=== PATIENT | female | born 1950 | race Caucasian/White ===

== ENCOUNTER → 2017-01-05 | Outpatient (CLI) | payer MEDICARE ==
[2017-01-05 07:48] LABS: CH 26.3; HCT 38.5 % (34.0-46.0); HDW 2.47; HGB 12.2 gm/dL (11.4-16.0); MCH 26.2 pg (25.0-35.0); MCHC 31.8 g/dL (31.0-37.0); MCV 82.5 fL (80.0-100.0); Mean Platelet Volume 6.6; RBC 4.67 m/uL (3.80-5.40); RDW 14.8 % (11.5-15.5); WBC 6.5 k/uL (3.8-10.6)
[2017-01-05 08:16] LABS: ALT 31 U/L (9-52); AST 21 U/L (14-36); Alkaline Phosphatase 72 U/L (38-126); Anion Gap 12 mmol/L; Blood Urea Nitrogen 17 mg/dL (7-17); Calcium 9.5 mg/dL (8.4-10.2); Carbon Dioxide 27 mmol/L (22-30); Chloride 100 mmol/L (98-107); Cholesterol 181 mg/dL (<200); Glucose 121 mg/dL (74-99); HDL Cholesterol 62 mg/dL (40-60); Non-African American GFR(MDRD) >60 (>60 ml/min/1.73 sqM); Potassium 4.3 mmol/L (3.5-5.1); Sodium 139 mmol/L (137-145); Total Bilirubin 0.5 mg/dL (0.2-1.3); Total Protein 7.4 g/dL (6.3-8.2); Triglycerides 210 mg/dL (<150)
--- NOTE | 2017-01-05 08:19 | XR ---
EXAMINATION TYPE: XR chest 2V DATE OF EXAM: 01/05/2017 7:49 AM COMPARISON: Prior chest x-ray 18 December 2015 HISTORY: Hypertensive heart disease, abnormal chest x-ray TECHNIQUE: Frontal and lateral views of the chest are obtained. FINDINGS: Exam is stable. Patient is rotated, this may accentuate the appearance of the heart. Calci fied granuloma again noted. No pneumothorax or pleural effusion. Pulmonary vascularity and debbie are u nchanged. No focal airspace disease. IMPRESSION: No acute cardiopulmonary process.
[2017-01-05 11:24] LABS: Hemoglobin A1C 6.3 % (4.2-6.1)
== END | disposition home or self-care (01) ==
LOC: LABWHC1 06:59
PROVIDERS: ATTEND Internal Medicine
DX: I11.9 Hypertensive heart disease without heart failure (principal); Z00.01 Encounter for general adult medical examination with abnormal findings; E11.9 Type 2 diabetes mellitus without complications; E78.2 Mixed hyperlipidemia; K21.0 Gastro-esophageal reflux disease with esophagitis
CPT/HCPCS: 36415; 71020; 80053; 80061; 82043; 83036; 84439; 84443; 85027

== ENCOUNTER → 2017-02-28 | Outpatient (CLI) | payer MEDICARE ==
[2017-02-28 14:08] LABS: Hemoglobin A1C 6.2 % (4.2-6.1)
== END | disposition home or self-care (01) ==
LOC: LABWHC1 06:49
PROVIDERS: ATTEND Internal Medicine
DX: E11.9 Type 2 diabetes mellitus without complications (principal)
CPT/HCPCS: 36415; 82947; 83036

== ENCOUNTER → 2017-03-17 | Outpatient (CLI) | payer MEDICARE ==
--- NOTE | 2017-03-23 10:55 | MM ---
Reason for exam: follow-up at short interval from prior study. Last mammogram was performed 7 months ago. History: Patient is postmenopausal. Family history of premenopausal breast cancer in sister at age 48. Physical Findings: Nurse did not find any significant physical abnormalities on exam. MG 3D Diag Mammo W/Cad RT CC and MLO view(s) were taken of the right breast. Prior study comparison: August 15, 2016, right breast MG work up mamm w CAD RT. August 03, 2016, bilateral MG screening mammo w CAD. The breast tissue is heterogeneously dense. This may lower the sensitivity of mammography. Nodular density persists for which a ultrasound is recommended. These results were verbally communicated with the patient and result sheet given to the patient on 03/17/17. ASSESSMENT: Incomplete: need additional imaging evaluation, BI-RAD 0 RECOMMENDATION: Ultrasound of the right breast.
--- NOTE | 2017-03-23 10:56 | USB ---
Reason for exam: additional evaluation requested from abnormal screening. History: Patient is postmenopausal. Family history of premenopausal breast cancer in sister at age 48. US Breast Limited RT Right breast ultrasound indicates a 0.8 x 0.5 x 0.3cm retroaerolar, oval, hypoechoic lesion at 6 o'clock These results were verbally communicated with the patient and result sheet given to the patient on 03/17/17. ASSESSMENT: Suspicious, BI-RAD 4 RECOMMENDATION: Ultrasound core biopsy of the right breast. Called Dr. Mathews with mammographic findings and has scheduled an appointment for the patient for 03/27/17 at 1:[address] Winchester. PRELIMINARY REPORT CALLED AND FAXED TO DR. WINCHESTER ON 03/23/17 AT 300/TMP.
== END | disposition home or self-care (01) ==
LOC: RADMAMWWP 12:54
PROVIDERS: ATTEND Internal Medicine
DX: R92.2 Inconclusive mammogram (principal); Z80.3 Family history of malignant neoplasm of breast
CPT/HCPCS: 76642; G0206; G0279

== ENCOUNTER → 2017-04-04 | Day surgery (SDC) | payer MEDICARE ==
[~2017-04-04] MED LIST: BACITRACIN OINT 1 EACH PACKET TOPICAL ONE; LIDOCAINE 1% INJ 10MG/ML (20 ML MDV) ONE
--- NOTE | 2017-04-04 08:47 | USB ---
EXAMINATION TYPE: US biopsy breast VAD RT DATE OF EXAM: 04/04/2017 CLINICAL HISTORY: R92.8 Abnormal Mammogram. TECHNIQUE: Ultrasound guided core biopsy of right breast. COMPARISON: 03/17/2017 FINDINGS: The procedure of ultrasound guided core biopsy was explained to the patient. Benefits, alternatives, and risks were discussed. An informed consent was then obtained. The patient was placed in supine positioning for imaging and for the procedure. The overlying skin was prepped and draped in usual sterile fashion. Lidocaine buffered with bicarbonate was used as anesthetic into the skin and subcutaneous tissue up to area of concern in the right breast. A katlin was made with surgical scalpel. Under ultrasound guidance, a 12-gauge vacuum assisted mammotome was used to obtain 6 core samples. Following this, a biopsy clip was left in lesion. The patient tolerated the procedure well without any immediate complication. The patient was kept in the radiology department for short stay after the procedure and then discharged home in stable condition. Postprocedure mammogram was obtained. The clip is in position. IMPRESSION: Successful, uncomplicated ultrasound guided core biopsy of area of concern in the right breast, full pathology results to follow. Pathology Results: High Risk BREAST, RIGHT, CORE BIOPSY: INTRADUCTAL PAPILLOMA. BACKGROUND FIBROCYSTIC CHANGES INCLUDING CYSTS, FIBROSIS, AND USUAL TYPE DUCTAL HYPERPLASIA. Recommendation Surgical consult of the right breast. TAMERA
--- NOTE | 2017-04-04 10:52 | MM ---
Reason for exam: additional evaluation requested from abnormal screening. Last mammogram was performed 1 month ago. History: Patient is postmenopausal. Family history of premenopausal breast cancer in sister at age 48. MG Diagnostic Mammo RT Wo CAD CC and ML view(s) were taken of the right breast. Prior study comparison: March 17, 2017, right breast MG 3d diag mammo w/cad RT. August 15, 2016, right breast MG work up mamm w CAD RT. ASSESSMENT: Post procedure mammogram for marker placement RECOMMENDATION: Ultrasound of the right breast in 6 months. PENDING PATHOLOGY RESULTS.
== END ==
LOC: RADUSWWP 06:50
PROVIDERS: ATTEND Surgery
DX: D24.1 Benign neoplasm of right breast (principal); Z80.3 Family history of malignant neoplasm of breast; N60.31 Fibrosclerosis of right breast; N60.91 Unspecified benign mammary dysplasia of right breast; R92.8 Other abnormal and inconclusive findings on diagnostic imaging of breast
CPT/HCPCS: 88305; 19083; G0206; A4648; J2001

== ENCOUNTER → 2017-09-18 | Outpatient (CLI) | payer MEDICARE ==
--- NOTE | 2017-09-18 13:09 | USB ---
Reason for exam: additional evaluation requested from prior study. History: Patient is postmenopausal and has history of high-risk lesion on a previous biopsy at age 66. Family history of premenopausal breast cancer in sister at age 48. Excisional biopsy of the right breast, May 2017. High risk US biopsy breast VAD RT of the right breast, April 04, 2017. Physical Findings: Nurse Summary: 0.5cm nodule right breast 12 o'clock (nurse mj). US Breast RT Right breast ultrasound includes all four quadrants, the retroareolar region and axilla. Finding demonstrates a 8 x 3 x 4mm small curvilinear area at surgical site at 6 o'clock at scar suggesting some residual small fluid. No abnormality seen at the 12 o'clock nurse palpated site. These results were verbally communicated with the patient and result sheet given to the patient on 09/18/17. ASSESSMENT: Incomplete: need additional imaging evaluation, BI-RAD 0 RECOMMENDATION: Special view mammogram of the right breast.
--- NOTE | 2017-09-18 13:11 | MM ---
Reason for exam: additional evaluation requested from abnormal screening. Last mammogram was performed 5 months ago. History: Patient is postmenopausal and has history of high-risk lesion on a previous biopsy at age 66. Family history of premenopausal breast cancer in sister at age 48. Excisional biopsy of the right breast, May 2017. High risk US biopsy breast VAD RT of the right breast, April 04, 2017. MG 3D Diag Mammo W/Cad POLO Bilateral CC and MLO view(s) were taken. Prior study comparison: April 04, 2017, right breast MG diagnostic mammo RT wo CAD. March 17, 2017, right breast MG 3d diag mammo w/cad RT. March 17, 2017, right breast US breast limited RT. December 09, 2013, bilateral digital screening mammo w/CAD. There are scattered fibroglandular densities. There is new distortion at the 5-6 o'clock right breast seen on the 3D CC images. Likely correspond to excisional scar from surgery in May 2017. A 6 month follow up to assess for stability of this finding. These results were verbally communicated with the patient and result sheet given to the patient on 09/18/17. ASSESSMENT: Probably benign, BI-RAD 3 RECOMMENDATION: Follow-up diagnostic mammogram of the right breast in 6 months.
== END | disposition home or self-care (01) ==
LOC: RADUSWWP 10:12
PROVIDERS: ATTEND Internal Medicine
DX: R92.8 Other abnormal and inconclusive findings on diagnostic imaging of breast (principal)
CPT/HCPCS: 76641; G0204; G0279

== ENCOUNTER → 2018-01-30 | Outpatient (CLI) | payer MEDICARE ==
[2018-01-30 07:53] LABS: HCT 36.2 % (34.0-46.0); MCH 26.7 pg (25.0-35.0); MCV 81.1 fL (80.0-100.0); Mean Platelet Volume 6.2; Platelet Count 400 k/uL (150-450); RBC 4.47 m/uL (3.80-5.40); RDW 14.6 % (11.5-15.5); WBC 5.6 k/uL (3.8-10.6)
[2018-01-30 08:21] LABS: ALT 25 U/L (9-52); AST 21 U/L (14-36); Albumin 4.1 g/dL (3.5-5.0); Alkaline Phosphatase 70 U/L (38-126); Anion Gap 13 mmol/L; Blood Urea Nitrogen 21 mg/dL (7-17); Calcium 9.2 mg/dL (8.4-10.2); Carbon Dioxide 27 mmol/L (22-30); Chloride 100 mmol/L (98-107); Cholesterol 172 mg/dL (<200); Glucose 114 mg/dL (74-99); HDL Cholesterol 57 mg/dL (40-60); LDL Cholesterol,Calculated 76 mg/dL (0-99); Potassium 4.1 mmol/L (3.5-5.1); Sodium 140 mmol/L (137-145); Total Bilirubin 0.4 mg/dL (0.2-1.3); Total Protein 6.6 g/dL (6.3-8.2); Triglycerides 193 mg/dL (<150)
[2018-01-30 08:34] LABS: T4, Free (Free Thyroxine) 1.07 ng/dL (0.78-2.19)
[2018-01-30 18:44] LABS: Hemoglobin A1C 6.1 % (4.0-6.0)
== END | disposition home or self-care (01) ==
LOC: LABWHC1 07:12
PROVIDERS: ATTEND Internal Medicine
DX: Z00.00 Encounter for general adult medical examination without abnormal findings (principal); E11.9 Type 2 diabetes mellitus without complications; E78.2 Mixed hyperlipidemia; I11.9 Hypertensive heart disease without heart failure; K21.0 Gastro-esophageal reflux disease with esophagitis
CPT/HCPCS: 36415; 80053; 80061; 82043; 82272; 82570; 83036; 84439; 84443; 85027

== ENCOUNTER → 2018-04-20 | Outpatient (CLI) | payer MEDICARE ==
--- NOTE | 2018-04-23 08:29 | MM ---
Reason for exam: follow-up at short interval from prior study. Last mammogram was performed 7 months ago. History: Patient is postmenopausal and has history of high-risk lesion on a previous biopsy at age 66. Family history of premenopausal breast cancer in sister at age 48. Excisional biopsy of the right breast, May 2017. High risk US biopsy breast VAD RT of the right breast, April 04, 2017. Physical Findings: Nurse did not find any significant physical abnormalities on exam. MG 3D Diag Mammo W/Cad RT CC and MLO view(s) were taken of the right breast. Prior study comparison: September 18, 2017, bilateral MG 3d diag mammo w/cad POLO. April 04, 2017, right breast MG diagnostic mammo RT wo CAD. The breast tissue is heterogeneously dense. This may lower the sensitivity of mammography. Benign calcifications in the right breast. Right post biopsy change, stable. These results were verbally communicated with the patient and result sheet given to the patient on 04/20/18. ASSESSMENT: Benign, BI-RAD 2 RECOMMENDATION: Follow-up diagnostic mammogram of both breasts in 6 months. Back on schedule for September 2018.
== END | disposition home or self-care (01) ==
LOC: RADMAMWWP 14:13
PROVIDERS: ATTEND Internal Medicine
DX: R92.8 Other abnormal and inconclusive findings on diagnostic imaging of breast (principal)
CPT/HCPCS: 77065; G0279; 77061

== ENCOUNTER → 2018-11-20 | Outpatient (CLI) | payer MEDICARE ==
--- NOTE | 2018-11-20 13:18 | BD ---
EXAMINATION TYPE: Axial Bone Density DATE OF EXAM: 11/20/2018 COMPARISON: 2012 DEXA bone scan. CLINICAL HISTORY: screening. Height: 5'2 Weight: 190 FRAX RISK QUESTIONS: Secondary Osteoporosis: RISK FACTORS HISTORY OF: Postmenopausal woman: y Poor Health: MEDICATIONS: Additional Medications: blood pressure, cholesterol, metformin Additional History: EXAM MEASUREMENTS: Bone mineral densitometry was performed using the [employer] System. Bone mineral density as measured about the Lumbar spine is: ----- L1-L4(G/cm2): 1.511 T Score Values are as follows: ----- L2: 2.6 ----- L3: 2.4 ----- L4: 2.8 ----- L1-L4:2.8 Bone mineral density has: Increased 0.1% since study of: 11/27/2012 Bone mineral density about the R hip (g/cm2): 0.928 Bone mineral density about the L hip (g/cm2): 0.895 T Score values are as follows: -----R Neck: -0.8 -----L Neck: -1.0 -----R Total: -0.3 -----L Total: -0.2 Bone mineral density has: Increased 0.9% since study of: 11/27/2012 IMPRESSION: Normal (Values between +1 and -1 indicate normal bone mass). Consider repeating this study in 5 year s or sooner if there is some new clinical indication. NOTE: T-SCORE=SD OF THE YOUNG ADULT MEAN.
--- NOTE | 2018-11-24 15:41 | MM ---
Reason for exam: history of benign breast biopsy. Last mammogram was performed 7 months ago. History: Patient is postmenopausal and has history of high-risk lesion on a previous biopsy at age 66. Family history of premenopausal breast cancer in sister at age 48. Excisional biopsy of the right breast, May 2017. High risk US biopsy breast VAD RT of the right breast, April 04, 2017. Took hormonal contraceptives for 3 years. Physical Findings: Nurse did not find any significant physical abnormalities on exam. MG 3D Diag Mammo W/Cad POLO Bilateral CC and MLO view(s) were taken. Prior study comparison: April 20, 2018, right breast MG 3d diag mammo w/cad RT. September 18, 2017, bilateral MG 3d diag mammo w/cad POLO. The breast tissue is heterogeneously dense. This may lower the sensitivity of mammography. There are benign-appearing round dystrophic bilateral breast calcifications. There is chronic inverted left nipple. No discrete abnormality. These results were verbally communicated with the patient and result sheet given to the patient on 11/20/18. ASSESSMENT: Benign, BI-RAD 2 RECOMMENDATION: Routine screening mammogram of both breasts in 1 year.
== END ==
LOC: RADMAMWWP 08:11
PROVIDERS: ATTEND Obstetrics & Gynecology
DX: R92.8 Other abnormal and inconclusive findings on diagnostic imaging of breast (principal); Z13.820 Encounter for screening for osteoporosis
CPT/HCPCS: 77080; 77066; G0279; 77062

== ENCOUNTER → 2019-04-05 | Outpatient (CLI) | payer MEDICARE ==
[2019-04-05 10:04] LABS: HGB 13.1 gm/dL (11.4-16.0); MCH 29.3 pg (25.0-35.0); MCHC 32.7 g/dL (31.0-37.0); MCV 89.7 fL (80.0-100.0); Mean Platelet Volume 6.1; Platelet Count 346 k/uL (150-450); RBC 4.46 m/uL (3.80-5.40); RDW 13.6 % (11.5-15.5); WBC 5.4 k/uL (3.8-10.6)
--- NOTE | 2019-04-05 10:31 | XR ---
EXAMINATION TYPE: XR chest 2V DATE OF EXAM: 04/05/2019 COMPARISON: January 05, 2017 HISTORY: Shortness of breath TECHNIQUE: Frontal and lateral views of the chest are obtained. FINDINGS: Scattered senescent parenchymal changes noted. Hyperinflation compatible with COPD. No evidence for infiltrate. No evidence for atelectasis. Heart size is stable. Mediastinal structures are stable and grossly unremarkable. No evidence for hilar prominence. Degenerative changes dorsal spine. IMPRESSION: 1. No evidence for acute pulmonary disease.
[2019-04-05 17:20] LABS: Albumin 4.5 g/dL (3.80-4.90); Albumin/Globulin Ratio 2.37 (1.60-3.17); Anion Gap 9.7 mmol/L (4.00-12.00); Calcium 9.5 mg/dL (8.7-10.3); Carbon Dioxide 28.3 mmol/L (21.6-31.8); Globulin 1.9 g/dL (1.6-3.3); LDL Cholesterol,Calculated 85.8 mg/dL (0.0-131.0); Potassium 4.3 mmol/L (3.5-5.5); Total Bilirubin 0.3 mg/dL (0.2-1.2); Total Protein 6.4 g/dL (6.2-8.2); VLDL Calculation 33.2 mg/dL (5.00-40.00)
[2019-04-05 17:28] LABS: T4, Free (Free Thyroxine) 1.2 ng/dL (0.80-1.80)
[2019-04-05 19:12] LABS: Hemoglobin A1C 6.2 % (4.0-6.0)
== END ==
LOC: LABWHC1 08:56
PROVIDERS: ATTEND Internal Medicine
DX: Z00.00 Encounter for general adult medical examination without abnormal findings (principal); I11.9 Hypertensive heart disease without heart failure; E11.9 Type 2 diabetes mellitus without complications; K21.0 Gastro-esophageal reflux disease with esophagitis; E78.2 Mixed hyperlipidemia
CPT/HCPCS: 36415; 71046; 80053; 80061; 82272; 83036; 84439; 84443; 85027

== ENCOUNTER → 2019-09-17 | Outpatient (CLI) | payer MEDICARE ==
[2019-09-17 17:27] LABS: African American GFR (CKD) 87.8 (60.0-200.0); Anion Gap 10.2 mmol/L (4.00-12.00); BUN/Creat Ratio 23.75 Ratio (12.00-20.00); Calcium 9.4 mg/dL (8.7-10.3); Carbon Dioxide 28.8 mmol/L (21.6-31.8); Chol/HDL Ratio 3.02; Potassium 4.3 mmol/L (3.5-5.5)
[2019-09-17 19:01] LABS: Hemoglobin A1C 5.9 % (4.0-6.0)
== END | disposition home or self-care (01) ==
LOC: LABWHC1 08:52
PROVIDERS: ATTEND Internal Medicine Clinical Cardiac Electrophysiology
DX: E11.65 Type 2 diabetes mellitus with hyperglycemia (principal); E78.5 Hyperlipidemia, unspecified; I10 Essential (primary) hypertension
CPT/HCPCS: 36415; 80048; 80061; 83036

== ENCOUNTER 2019-10-17 09:38 | Day surgery (SDC) | payer MEDICARE ==
[2019-10-15 12:24] VITALS: BMI 35.9
[2019-10-17 10:17] VITALS: RESP 16; TEMP 97.9
[2019-10-17] MEDS ORDERED: IV FLUID CONTINUATION 250 ML IV ONE (11:29)
[2019-10-17] MEDS ORDERED: fentaNYL (PF) 50 MCG/ML 2 ML AMP IV ONE (11:44)
[2019-10-17] MEDS ORDERED: BENZOCAINE SPRAY 1 CAN MUCOUS MEM ONE (11:44)
[2019-10-17] MEDS ORDERED: MIDAZOLAM 2 MG/2 ML VIAL IVP ONE (11:45)
[2019-10-17 11:59] VITALS: PULSE 72
[2019-10-17] MEDS ORDERED: SODIUM CHLORIDE 0.9% 1,000 ML IV SCH (12:15)
--- NOTE | 2019-10-17 12:29 | ECHOT ---
TRANSESOPHAGEAL ECHOCARDIOGRAM Mrs. Rabago was advised transesophageal echocardiogram to assess aortic stenosis. Patient was given intravenous sedation with Versed and fentanyl and transesophageal echocardiogram was performed without any complications. Left ventricular chamber is normal in size. There is a moderate degree of left ventricular hypertrophy with normal left ventricular systolic function. Mitral valve morphology is normal. There is a moderate degree of mitral regurgitation noted. Left atrium is mildly enlarged. There is no evidence of thrombus in the left atrial appendage. Aortic valve is thickened and calcified with diminished aortic leaflet opening. Aortic valve area by planimetry is calculated in the range of 0.9 to 0.8 square centimeter. There is a mild aortic regurgitation and moderate degree of tricuspid regurgitation is noted. Interatrial septum is intact. There is no evidence of PFO. There is evidence of diffuse atherosclerotic plaque noted in the descending thoracic aorta. FINAL IMPRESSION: 1. This patient's aortic valve is thickened and calcified with a diminished opening. Aortic valve area is calculated in the range of 0.8 to 0.9 square centimeter suggestive of severe aortic stenosis. There is a mild aortic regurgitation. 2. There is a moderate degree of mitral regurgitation. 3. Moderate degree of tricuspid regurgitation is noted. 4. Interatrial septum is intact. 5. There is a diffuse atherosclerotic plaque noted in descending thoracic aorta. MMODL / IJN: [id number] /
[2019-10-17 13:43] VITALS: BP 128/65
== END 2019-10-17 13:10 | disposition home or self-care (01) ==
LOC: CATHCVL 09:38
PROVIDERS: ATTEND Internal Medicine Cardiovascular Disease
DX: I08.3 Combined rheumatic disorders of mitral, aortic and tricuspid valves (principal); I70.0 Atherosclerosis of aorta; I10 Essential (primary) hypertension; E78.5 Hyperlipidemia, unspecified; E11.9 Type 2 diabetes mellitus without complications; Z79.899 Other long term (current) drug therapy; Z79.84 Long term (current) use of oral hypoglycemic drugs
CPT/HCPCS: 93312; 93320; 93325; J2250; J3010

== ENCOUNTER → 2019-11-01 | Outpatient (CLI) | payer MEDICARE ==
[2019-11-01 15:03] LABS: HCT 39.5 % (34.0-46.0); HGB 12.8 gm/dL (11.4-16.0); MCH 28.9 pg (25.0-35.0); MCHC 32.5 g/dL (31.0-37.0); Mean Platelet Volume 6.4; Platelet Count 376 k/uL (150-450); RBC 4.44 m/uL (3.80-5.40); WBC 7.4 k/uL (3.8-10.6)
[2019-11-01 15:10] LABS: Potassium 4.2 mmol/L (3.5-5.1)
== END | disposition home or self-care (01) ==
LOC: LABPAT 14:19
PROVIDERS: ATTEND Internal Medicine Interventional Cardiology
DX: Z01.812 Encounter for preprocedural laboratory examination (principal); I35.0 Nonrheumatic aortic (valve) stenosis
CPT/HCPCS: 36415; 80051; 82565; 84520; 85027

== ENCOUNTER → 2019-12-09 | Outpatient (CLI) | payer MEDICARE ==
--- NOTE | 2019-12-10 11:02 | MM ---
Reason for exam: screening (asymptomatic). Last mammogram was performed 1 year and 1 month ago. History: Patient is postmenopausal and has history of high-risk lesion on a previous biopsy at age 66. Family history of premenopausal breast cancer in sister at age 48. Excisional biopsy of the right breast, May 2017. High risk US biopsy breast VAD RT of the right breast, April 04, 2017. Took hormonal contraceptives for 3 years. Physical Findings: A clinical breast exam by your physician is recommended on an annual basis and results should be correlated with mammographic findings. MG 3D Screening Mammo W/Cad Bilateral CC and MLO view(s) were taken. Prior study comparison: November 20, 2018, bilateral MG 3d diag mammo w/cad POLO. April 20, 2018, right breast MG 3d diag mammo w/cad RT. There are benign appearing round calcifications bilaterally. There is no discrete abnormality. ASSESSMENT: Benign, BI-RAD 2 RECOMMENDATION: Routine screening mammogram of both breasts in 1 year.
== END | disposition home or self-care (01) ==
LOC: RADMAMWWP 09:49
PROVIDERS: ATTEND Obstetrics & Gynecology
DX: Z12.31 Encounter for screening mammogram for malignant neoplasm of breast (principal)
CPT/HCPCS: 77063; 77067

== ENCOUNTER → 2019-12-12 | Outpatient (CLI) | payer MEDICARE ==
[2019-12-12 09:40] LABS: HCT 40.7 % (34.0-46.0); HGB 13.4 gm/dL (11.4-16.0); MCH 29.2 pg (25.0-35.0); MCHC 32.9 g/dL (31.0-37.0); MCV 88.9 fL (80.0-100.0); Mean Platelet Volume 6.5; Platelet Count 357 k/uL (150-450); RBC 4.57 m/uL (3.80-5.40); RDW 13.1 % (11.5-15.5); WBC 6.1 k/uL (3.8-10.6)
[2019-12-12 09:46] LABS: Appearance,Urine Clear (Clear); Bilirubin,Urine Negative (Negative); Blood,Urine Negative (Negative); Color,Urine Light Yellow; Glucose,Urine (UA) Negative (Negative); Ketones,Urine Negative (Negative); Leukocyte Esterase,Urine Moderate (Negative); Mucus,Urine Rare /hpf; Nitrite,Urine Negative (Negative); PH, Urine 6.5 (5.0-8.0); Protein,Urine Negative (Negative); RBC,Urine 1 /hpf (0-5); Specific Gravity,Urine 1.009 (1.001-1.035); Squamous Epithelial Cell,Urine 2 /hpf (0-4); Urobilinogen,Urine <2.0 mg/dL (<2.0); WBC,Urine 2 /hpf (0-5)
[2019-12-12 09:52] LABS: ALT 24 U/L (4-34); AST 26 U/L (14-36); African American GFR (CKD) >90 (>60 ml/min/1.73 sqM); Albumin 4.3 g/dL (3.5-5.0); Alkaline Phosphatase 78 U/L (38-126); Anion Gap 9 mmol/L; Blood Urea Nitrogen 19 mg/dL (7-17); Calcium 9.5 mg/dL (8.4-10.2); Carbon Dioxide 29 mmol/L (22-30); Chloride 100 mmol/L (98-107); Cholesterol 168 mg/dL (<200); Glucose 122 mg/dL (74-99); HDL Cholesterol 51 mg/dL (40-60); LDL Cholesterol,Calculated 71 mg/dL (0-99); Magnesium 1.9 mg/dL (1.6-2.3); Non-African American GFR(CKD) 87 (>60 ml/min/1.73 sqM); Sodium 138 mmol/L (137-145); Total Bilirubin 0.6 mg/dL (0.2-1.3); Triglycerides 231 mg/dL (<150)
--- NOTE | 2019-12-12 10:35 | P.PN ---
Progress Note - Text Progress Note Date: 12/12/19 5 meter walk test completed: #1 3.26 sec #2 3.53 sec #3 3.56 sec Patient tolerated well, no complaints of chest pain or shortness of breath.
--- NOTE | 2019-12-12 11:36 | XR ---
EXAMINATION TYPE: XR chest 2V DATE OF EXAM: 12/12/2019 COMPARISON: 04/05/2019, 11/08/2014 TECHNIQUE: PA and lateral views submitted. HISTORY: Pain FINDINGS: The lungs are clear and there is no pneumothorax, pleural effusion, or focal pneumonia. Heart size is mildly prominent. No failure. 6 mm nodule left lung apex stable. Hypertrophic and degenerative kimberly nge of the spine. IMPRESSION: 1. No acute process. Stable left apical pulmonary nodule unchanged from 2015 for benign.
[2019-12-12 16:31] LABS: Hepatitis A Antibody IgM Non-Reactive (Non-Reactive); Hepatitis B Core IgM Non-Reactive (Non-Reactive); Hepatitis B Surface Antigen Non-Reactive (Non-Reactive); Hepatitis C IgG Antibody Non-Reactive (Non-Reactive)
[2019-12-12 18:10] LABS: Hemoglobin A1C 6.2 % (4.0-6.0)
--- NOTE | 2019-12-18 10:35 | P.VSCSTY ---
Greater Saphenous Vein Mapping This is bilateral lower extremity greater saphenous vein mapping. Date of service: 12/12/2019 Vein quality and ultrasound appearance: No sign of endoluminal thrombus or wall changes. Vein size groin right : 7.3 x 5.3 groin left: 7.3 x 6.0 High thigh right: 6.4 x 4.6 high thigh left: 3.4 x 3.4 Mid thigh right: 3.9 x 2.8 mid thigh left: 4.1 x 2.6 Above-knee right: 2.9 x 3.0 above-knee left: 4.0 x 3.0 Below knee right: 2.7 x 2.1 below-knee left: 2.6 x 2.1 Mid calf right: 3.1 x 2.3 mid calf left: 2.6 x 2.1 Ankle right: 2.7 x 1.9 ankle left: 3.3 x 2.2 Impression: Usable bilateral greater saphenous vein.
== END | disposition home or self-care (01) ==
LOC: LABWHC1 08:48
PROVIDERS: ATTEND Thoracic Surgery (Cardiothoracic Vascular Surgery)
DX: Z01.818 Encounter for other preprocedural examination (principal); I10 Essential (primary) hypertension; I35.0 Nonrheumatic aortic (valve) stenosis; E11.9 Type 2 diabetes mellitus without complications; E78.5 Hyperlipidemia, unspecified; R91.1 Solitary pulmonary nodule
CPT/HCPCS: 71046; 80053; 80061; 80074; 81001; 83036; 83735; 84443; 85027; 85610; 85730; 87070; 87086; 93005; 93970

== ENCOUNTER 2019-12-20 08:00 | Inpatient (IN) | payer MEDICARE ==
[2019-12-25] MEDS ORDERED: HEPARIN SODIUM,PORCINE 5,000 UNIT in SODIUM CHLORIDE 0.9% 500 ML 500 ML IV ONE (05:00)
[2019-12-25] MEDS ORDERED: ALBUMIN HUMAN 25% 50 ML IV ONE (05:00)
[2019-12-25] MEDS ORDERED: ATORVASTATIN 10 MG TAB PO ONE (05:00)
[2019-12-25] MEDS ORDERED: PROTAMINE SULFATE 250 MG in EMPTY BAG 1 BAG IV ONE (05:00)
[2019-12-25] MEDS ORDERED: CHLORHEXIDINE GLUCONATE 15 ML CUP MUCOUS MEM ONE (05:00)
[2019-12-25] MEDS ORDERED: MANNITOL 25% 12.5 GM/50 ML VIAL IV ONE (05:00)
[2019-12-25] MEDS ORDERED: ceFAZolin 2,000 MG in SODIUM CHLORIDE 0.9% 30 ML IVPB ONE ×4 (05:00)
[2019-12-25] MEDS ORDERED: HEPARIN SODIUM 1,000 UN/ML (10ML VL) IV ONE (05:00)
[2019-12-25] MEDS ORDERED: PROPOFOL 1,000 MG/100 ML VIAL IV ONE (05:00)
[2019-12-25] MEDS ORDERED: ASPIRIN 325 MG TAB PO ONE (05:00)
[2019-12-25] MEDS ORDERED: MAGNESIUM SULFATE MG 500 MG/ML IV ONE (05:00)
[2019-12-25] MEDS ORDERED: SODIUM BICARB 8.4% 50 ML SYR (1 MEQ/ML) IV ONE (05:00)
[2019-12-25] MEDS ORDERED: PROTAMINE SULFATE 10 MG/ML 25 ML VIAL IV ONE (05:00)
[2019-12-25] MEDS ORDERED: NOREPINEPHRINE 4 MG in SODIUM CHLORIDE 0.9% 250 ML IV ONE (05:00)
[2019-12-25] MEDS ORDERED: LACTATED RINGERS 1,000 ML IV ONE ×2 (05:00→08:17)
[2019-12-25] MEDS ORDERED: DEXTROSE 5% IN WATER 1,000 ML with POTASSIUM CHLORIDE 110 MEQ, MAGNESIUM SULFATE 16 MEQ... IV ONE ×5 (05:00)
[2019-12-25] MEDS ORDERED: PHENYLEPHRINE 10 MG/ML VIAL IV ONE (05:00)
[2019-12-25] MEDS ORDERED: NITROGLYCERIN-D5W PMX 25 MG/250 ML BTL IV ONE (05:00)
[2019-12-25] MEDS ORDERED: PHENYLEPHRINE 40 MG in SODIUM CHLORIDE 0.9% 250 ML IV ONE (05:00)
[2019-12-25] MEDS ORDERED: METOPROLOL TARTRATE 12.5 MG TAB PO ONE (05:00)
[2019-12-25] MEDS ORDERED: DEXTROSE 5% IN WATER 1,000 ML with POTASSIUM CHLORIDE 25 MEQ, SODIUM CHLORIDE 2.5MEQ/ML... IRRIGATION ONE ×6 (05:00)
[2019-12-25] MEDS ORDERED: CLEVIDIPINE BUTYRATE 25 MG in EMPTY BAG 1 BAG IV ONE (05:00)
[2019-12-25] MEDS ORDERED: ALBUMIN HUMAN 5% 500 ML IVPB ONE (05:00)
[2019-12-25] MEDS ORDERED: INSULIN REGULAR 100 UNIT in SODIUM CHLORIDE 0.9% 100 ML IV ONE (05:00)
[2019-12-25] MEDS ORDERED: TRANEXAMIC ACID 2,000 MG in SODIUM CHLORIDE 0.9% 80 ML IV ONE (05:00)
[2019-12-25] MEDS ORDERED: CALCIUM CHLORIDE 100 MG/ML 10 ML SYRINGE IV ONE (05:00)
[2019-12-25] MEDS ORDERED: SODIUM CHLORIDE 0.9% 1,000 ML IV ONE (05:00)
[2019-12-25] MEDS ORDERED: LIDOCAINE 1% (10MG/ML) FOR IV START INTRADERMA PRN (06:26)
[2019-12-25] MEDS ORDERED: LACTATED RINGERS 1,000 ML IV SCH (06:26)
[2019-12-25] MEDS ORDERED: MIDAZOLAM 2 MG/2 ML VIAL ONE (09:42)
[2019-12-25] MEDS ORDERED: MAGNESIUM SULFATE 4 MEQ/ML 10ML VIAL ONE (09:42)
[2019-12-25] MEDS ORDERED: TRANEXAMIC ACID 1,000 MG/10 ML VIAL ONE (09:42)
[2019-12-25] MEDS ORDERED: PROPOFOL 10 MG/ML 20 ML VIAL IV ONE (09:42)
[2019-12-25] MEDS ORDERED: SODIUM CHLORIDE 0.9% 250 ML BAG ONE (09:42)
[2019-12-25] MEDS ORDERED: fentaNYL (PF) 50 MCG/ML 2 ML AMP ONE (09:42)
[2019-12-25] MEDS ORDERED: VECURONIUM 10 MG VIAL IV ONE (09:42)
[2019-12-25] MEDS ORDERED: fentaNYL (PF) 50 MCG/ML 50 ML VIAL ONE (09:42)
[2019-12-25] MEDS ORDERED: ALBUMIN HUMAN 5% (25gm) 500 ML VIAL IVPB ONE (09:42)
[2019-12-25] MEDS ORDERED: ELECTROLYTE-R (PH 7.4) 1,000 ML IV.SOLN IV ONE (09:42)
[2019-12-25] MEDS ORDERED: POTASSIUM CHLORIDE 2 MEQ/ML 20 ML VIAL ONE (09:42)
[2019-12-25] MEDS ORDERED: LACTATED RINGERS 1,000 ML BAG IV ONE (09:42)
[2019-12-25] MEDS ORDERED: LIDOCAINE 1% INJ 10MG/ML (20 ML MDV) ONE (09:42)
[2019-12-25] MEDS ORDERED: HEPARIN SODIUM,PORCINE 10,000 UNIT/ML 1 ML VIAL ONE (09:42)
[2019-12-25 10:44] LABS: ABG Base Excess 3.6 mmol/L; ABG Glucose Whole Blood 116 mg/dL (75-99); ABG HCO3 28 mmol/L (21-25); ABG Hematocrit 36 % (34.0-46.0); ABG Ionized Calcium 4.7 mg/dL (4.5-5.3); ABG Lactic Acid Whole Blood 1.2 mmol/L (0.5-1.6); ABG Oxygen Saturation 99.8 % (94-97); ABG PCO2 38 mmHg (35-45); ABG PH 7.47 (7.35-7.45); ABG PO2 350 mmHg (83-108); ABG Potassium Whole Blood 3.8 mmol/L (3.4-4.5); ABG Sodium Whole Blood 139 mmol/L (135-146); ABG TCO2 29 mmol/L (19-24)
[2019-12-25 11:32] LABS: ABG Base Excess 2.2 mmol/L; ABG Glucose Whole Blood 121 mg/dL (75-99); ABG HCO3 26 mmol/L (21-25); ABG Hematocrit 31 % (34.0-46.0); ABG Ionized Calcium 4.6 mg/dL (4.5-5.3); ABG Oxygen Saturation 99.7 % (94-97); ABG PCO2 38 mmHg (35-45); ABG PH 7.45 (7.35-7.45); ABG PO2 209 mmHg (83-108); ABG Potassium Whole Blood 3.8 mmol/L (3.4-4.5); ABG Sodium Whole Blood 137 mmol/L (135-146); ABG TCO2 28 mmol/L (19-24)
[2019-12-25 11:59] LABS: ABG Base Excess 0.5 mmol/L; ABG Glucose Whole Blood 198 mg/dL (75-99); ABG HCO3 26 mmol/L (21-25); ABG Ionized Calcium 4.2 mg/dL (4.5-5.3); ABG Lactic Acid Whole Blood 1.9 mmol/L (0.5-1.6); ABG Oxygen Saturation 99.8 % (94-97); ABG PCO2 46 mmHg (35-45); ABG PH 7.36 (7.35-7.45); ABG PO2 352 mmHg (83-108); ABG Potassium Whole Blood 4.8 mmol/L (3.4-4.5); ABG Sodium Whole Blood 132 mmol/L (135-146); ABG TCO2 28 mmol/L (19-24)
[2019-12-25 12:31] LABS: ABG Glucose Whole Blood 205 mg/dL (75-99); ABG HCO3 25 mmol/L (21-25); ABG Ionized Calcium 4.2 mg/dL (4.5-5.3); ABG PCO2 41 mmHg (35-45); ABG PO2 318 mmHg (83-108); ABG Potassium Whole Blood 4.4 mmol/L (3.4-4.5); ABG Sodium Whole Blood 134 mmol/L (135-146); ABG TCO2 26 mmol/L (19-24)
[2019-12-25 13:09] LABS: ABG Lactic Acid Whole Blood 2.5 mmol/L (0.5-1.6)
[2019-12-25 13:11] LABS: ABG Hematocrit 24 % (34.0-46.0)
[2019-12-25 13:12] LABS: ABG Hematocrit 24 % (34.0-46.0); ABG Lactic Acid Whole Blood 2.2 mmol/L (0.5-1.6)
--- NOTE | 2019-12-25 13:49 | P.ANPRN ---
Procedure Note - Anesthesia - KESHAV Intraop Pre Bypass KESHAV Intraop - Anesthesia Indication: Aortic Valve Stenosis Date of Procedure: 12/25/19 Pre-operative Diagnosis: Aortic Valve Stenosis Post-operative Diagnosis: Bioprosthetic Aortic Valve Surgeon: Gómez Benjamin Left Ventricle: LVH, Normal Ejection Fraction, EF=60% Ejection Fraction: Normal Regional Wall Motion Abnormalities: None Left Ventricle Hypertrophy: Yes R. Ventricle Function: Normal Anatomy: Trileaflet Aortic Stenosis: Severe (Mean gradient=21.85mmHg, Peak= 32.19mmHg, FARZANEH=0.7cm2) Aortic Regurgitation: Mild Mitral Stenosis: None Mitral Regurgitation: Mild Tricuspid Stenosis: None Tricuspid Regurgitation: None Pulmonic Stenosis: None Pulmonic Regurgitation: None R. Atrial Dilation: No R. Atrial PFO: No L. Atrial Dilation: No Aortic Dissection: No Aortic Calcification: Moderate Plural Effusion: None - KESHAV Intraop Post Bypass KESHAV Intraop Post Bypass Procedure Performed: Aortic Valve Replacement, Bioprosthetic valve Ejection Fraction: Normal Regional Wall Motion Abnormalities: None R. Ventricle Function: Normal Aortic Valve: (MeanPG=15mmHg, MaxPG=26mmHg, FARZANEH=1.7cm2, no paravalvular leak, No aortic regurgitation, well seated, non-rocking valve.) Mitral Valve: Unchanged Tricuspid: Unchanged Pulmonic: Unchanged Aortic Dissection: No
[2019-12-25 14:01] LABS: ABG Base Excess 1.4 mmol/L; ABG Glucose Whole Blood 113 mg/dL (75-99); ABG HCO3 26 mmol/L (21-25); ABG Hematocrit 31 % (34.0-46.0); ABG Ionized Calcium 4.8 mg/dL (4.5-5.3); ABG Lactic Acid Whole Blood 1.5 mmol/L (0.5-1.6); ABG Oxygen Saturation 99.6 % (94-97); ABG PCO2 39 mmHg (35-45); ABG PH 7.43 (7.35-7.45); ABG PO2 201 mmHg (83-108); ABG Potassium Whole Blood 3.6 mmol/L (3.4-4.5); ABG Sodium Whole Blood 136 mmol/L (135-146); ABG TCO2 27 mmol/L (19-24)
[2019-12-25 14:53] LABS: Glucose,Whole Blood 106 mg/dL (75-99)
[2019-12-25] MEDS ORDERED: Potassium Replacement Protocol 1 EACH MISC MISCELLANE PRN (15:06)
[2019-12-25] MEDS ORDERED: IPRATROPIUM-ALBUTEROL 3 ML NEB INHALATION PRN (15:06)
[2019-12-25] MEDS ORDERED: DEXTROSE 5% IN WATER 100 ML with AMIODARONE 150 MG IV PRN (15:06)
[2019-12-25] MEDS ORDERED: Magnesium Replacement Protocol 1 EACH MISC MISCELLANE PRN (15:06)
[2019-12-25] MEDS ORDERED: BENZOCAINE/MENTHOL LOZENG 1 EACH LOZENGE MUCOUS MEM PRN (15:06)
[2019-12-25] MEDS ORDERED: PROPOFOL 1,000 MG in EMPTY BAG 1 BAG IV SCH (15:06)
[2019-12-25] MEDS ORDERED: AMIODARONE 360 MG in DEXTROSE 5% IN WATER 200 ML IV PRN ×2 (15:06)
[2019-12-25] MEDS ORDERED: Phosphorus Replacement Protoco 1 EACH MISC MISCELLANE PRN (15:06)
[2019-12-25] MEDS ORDERED: ONDANSETRON 4 MG/2 ML VIAL IVP PRN (15:06)
[2019-12-25] MEDS ORDERED: CALCIUM GLUCONATE 2 GM in SODIUM CHLORIDE 0.9% 100 ML IVPB PRN (15:06)
[2019-12-25] MEDS ORDERED: AMIODARONE 300 MG in DEXTROSE 5% IN WATER 250 ML IV PRN ×2 (15:06)
[2019-12-25] MEDS ORDERED: INSULIN REGULAR 100 UNIT in SODIUM CHLORIDE 0.9% 100 ML IV SCH (15:15)
[2019-12-25 15:27] LABS: ABG Base Excess 1.6 mmol/L; ABG HCO3 28 mmol/L (21-25); ABG Oxygen Saturation 99.6 % (94-97); ABG PCO2 53 mmHg (35-45); ABG PH 7.32 (7.35-7.45); ABG PO2 258 mmHg (83-108); ABG TCO2 29 mmol/L (19-24)
[2019-12-25 15:30] LABS: Basophils % (A) 0 %; Eosinophils % (A) 1 %; HCT 28.1 % (34.0-46.0); Lymphocytes % (A) 12 %; MCH 29.9 pg (25.0-35.0); MCHC 33.8 g/dL (31.0-37.0); MCV 88.6 fL (80.0-100.0); Monocytes # (A) 0.5 k/uL (0-1.0); Monocytes % (A) 6 %; Neutrophils # (A) 6.7 k/uL (1.3-7.7); Neutrophils % (A) 80 %; RBC 3.17 m/uL (3.80-5.40); RDW 13.1 % (11.5-15.5); WBC 8.3 k/uL (3.8-10.6)
[2019-12-25 15:32] LABS: Allen Test Performed? no
[2019-12-25 15:33] LABS: ALT 12 U/L (4-34); AST 30 U/L (14-36); African American GFR (CKD) >90 (>60 ml/min/1.73 sqM); Albumin 2.7 g/dL (3.5-5.0); Alkaline Phosphatase 32 U/L (38-126); Anion Gap 5 mmol/L; Blood Urea Nitrogen 19 mg/dL (7-17); Calcium 8.3 mg/dL (8.4-10.2); Carbon Dioxide 27 mmol/L (22-30); Chloride 103 mmol/L (98-107); Glucose 91 mg/dL (74-99); Magnesium 2.6 mg/dL (1.6-2.3); Non-African American GFR(CKD) >90 (>60 ml/min/1.73 sqM); Sodium 135 mmol/L (137-145); Total Bilirubin 0.6 mg/dL (0.2-1.3); Total Protein 4.5 g/dL (6.3-8.2)
[2019-12-25 15:35] LABS: HGB 9.5 gm/dL (11.4-16.0); INR 1.2 (<1.2); Partial Thromboplastin Time 27.3 sec (22.0-30.0); Prothrombin Time 12.2 sec (9.0-12.0)
[2019-12-25 15:36] LABS: Platelet Count 163 k/uL (150-450)
--- NOTE | 2019-12-25 15:40 | XR ---
EXAMINATION TYPE: XR chest 1V portable DATE OF EXAM: 12/25/2019 COMPARISON: Prior chest x-ray dated 12/12/2019 HISTORY: Postop cardiac surgery, intubated TECHNIQUE: Single frontal view of the chest is obtained. FINDINGS: Endotracheal tube, NG tube, right jugular central venous catheter, right chest tube, media stinal drain are overlying appropriate positions. Patient is post median sternotomy, atrial appendage clipping, aortic valve replacement. There are overlying cardiac leads. Lung volumes are low. No evid ent pneumothorax. Heart is enlarged. Perihilar increased density is present likely representing atele ctatic changes. Calcification of the left lung apex is stable. IMPRESSION: Satisfactory postoperative chest x-ray, expiratory rotated exam, follow-up recommended.
[2019-12-25] MEDS: CLEVIDIPINE BUTYRATE 25 MG in EMPTY BAG 1 BAG IV SCH ×2 (16:00→21:30)
[2019-12-25 16:18] LABS: Glucose,Whole Blood 152 mg/dL (75-99)
[2019-12-25] MEDS: ACETAMINOPHEN IV (For NPO) 1,000 MG in EMPTY BAG 1 BAG IVPB SCH ×2 (16:26→21:31)
--- NOTE | 2019-12-25 16:30 | P.CNPUL ---
History of Present Illness Consult date: 12/25/19 Chief complaint: Post thoracotomy and aortic valve replacement History of present illness: This is a 69-year-old. Patient with severe aortic stenosis. The patient underwent a aortic valve with a prostatic aortic valve. The patient currently i s in the intensive care unit.. Currently on mechanical ventilator. She came in with an SIMV mode at the rate of 10 with a tidal volume of 380 and a PEEP of 10 with an FiO2 of 100%. The blood gases showed a pH of 7.32 with a pCO2 of 53 and pO2 of 58. The FiO2 has been drop down to 50%. The postop chest x-ray showed satisfactory positioning of 82. NG tube right IJ [place]-Adrian catheter in place. The patient's right-sided and midsternal chest tubes. Lung volumes are small. There is some perihilar increased density/atelectasis. The patient currently is hemodynamically stable. She is on no pressors. Cardiac output is 5.0 and index is at 2.7. Pulmonary artery pressures are 35 and 14. Urine output has been adequate in the order of 30 mL an hour. The patient came in to us with propofol infusion. Currently the infusion is off as the patient is recovering from sedation. She is on Cleviprex which is running at 2 mg/h. Her preoperative FEV1 was in the order of 70% predicted. She is a nonsmoker. She has history of hypertension and hyperlipidemia as comorbid conditions. Review of Systems ROS unobtainable: due to endotracheal tube Past Medical History Past Medical History: Diabetes Mellitus, GERD/Reflux, Hyperlipidemia, Hypertension Additional Past Medical History / Comment(s): Hx. of pre diabetes not currently taking any medication. The patient had severe aortic stenosisBased on recent KESHAV, the patient's preoperative aortic valve area was 0.8 cm and the patient also had a moderate degree of mitral regurgitation. History of Any Multi-Drug Resistant Organisms: None Reported Past Surgical History: Appendectomy, Tubal Ligation Additional Past Surgical History / Comment(s): Colonoscopy. EGD. Past Anesthesia/Blood Transfusion Reactions: No Reported Reaction Additional Past Anesthesia/Blood Transfusion Reaction / Comment(s): no hx blood transfusion Smoking Status: Never smoker - Past Family History Mother Family Medical History: Cancer Additional Family Medical History / Comment(s): Skin Sister(s) Family Medical History: Cancer Additional Family Medical History / Comment(s): Breast Brother(s) Family Medical History: Cancer, CVA/TIA Father Family Medical History: Cancer Additional Family Medical History / Comment(s): multiple myeloma Medications and Allergies Home Medications Medication Instructions Recorded Confirmed Type Atorvastatin [Lipitor] 40 mg PO HS 10/15/19 12/25/19 History Lisinopril [Zestril] 10 mg PO DAILY 10/15/19 12/25/19 History Multivitamins, Thera [Multivitamin 1 tab PO DAILY 10/15/19 12/25/19 History (formulary)] Omeprazole [PriLOSEC] 40 mg PO DAILY 10/15/19 12/25/19 History Triamterene-Hctz 37.5-25Mg 1 cap PO DAILY 10/15/19 12/25/19 History [Dyazide 37.5-25 Capsule] Vit C/E/Zn/Coppr/Lutein/Zeaxan 1 each PO BID 10/15/19 12/25/19 History [Preservision Areds 2 Softgel] amLODIPine BESYLATE [Norvasc] 2.5 mg PO DAILY 10/15/19 12/25/19 History Mupirocin 2% Oint [Bactroban 2% 1 applic TOPICAL BID 12/12/19 12/25/19 History Oint] Cyanocobalamin (Vitamin B-12) 1,000 mcg PO DAILY 12/20/19 12/25/19 History [Vitamin B-12] Allergies Allergy/AdvReac Type Severity Reaction Status Date / Time No Known Allergies Allergy Verified 12/25/19 07:48 Physical Exam Vitals: Vital Signs Temp Pulse Resp BP Pulse Ox 12/25/19 07:54 98.5 F 71 16 167/77 100 Intake and Output 12/25/19 12/25/19 12/25/19 06:59 14:59 22:59 Intake Total 31 Output Total 1100 Balance -1069 Intake: IV 31 Output: Urine 600 Estimated Blood Loss 500 Other: Weight 86 kg Gen. appearance sedated, comfortable likely distress. Orogastric and orotracheal tube are both in place. Head exam was generally normal. There was no scleral icterus or corneal arcus. Mucous membranes were moist. Neck was supple and without jugular venous distension, thyromegaly, or carotid bruits. Carotids were easily palpable bilaterally. There was no adenopathy. The patient has a right IJ [place]-Adrian catheter Breath sounds on the lung examination is equal and symmetrical. The patient is a right pleural and mediastinal chest tubes. Output from the chest tube has been less than 100 mL an hour and the patient has no evidence of any air leak. Cardiac exam revealed the PMI to be normally situated and sized. The rhythm was regular and no extrasystoles were noted during several minutes of auscultation. The first and second heart sounds were normal and physiologic splitting of the second heart sound was noted. There were no murmurs, rubs, clicks, or gallops. Sternum stable clean and intact and the chest tubes are all in place Abdominal exam revealed normal bowel sounds. The abdomen was soft, non-tender, and without masses, organomegaly, or appreciable enlargement of the abdominal aorta. Examination of the extremities revealed easily palpable radial, femoral and pedal pulses. There was no cyanosis, clubbing or edema. Examination of the skin revealed no evidence of significant rashes, suspicious appearing nevi or other concerning lesions. Neurologic is still sedated Results - Laboratory Findings CBC and BMP: 12/25/19 15:12 12/25/19 15:12 ABG WBC 8.3 k/uL (3.8-10.6) 12/25/19 15:12 RBC 3.17 m/uL (3.80-5.40) L 12/25/19 15:12 Hgb 9.5 gm/dL (11.4-16.0) L D 12/25/19 15:12 Hct 28.1 % (34.0-46.0) L 12/25/19 15:12 MCV 88.6 fL (80.0-100.0) 12/25/19 15:12 MCH 29.9 pg (25.0-35.0) 12/25/19 15:12 MCHC 33.8 g/dL (31.0-37.0) 12/25/19 15:12 RDW 13.1 % (11.5-15.5) 12/25/19 15:12 Plt Count 163 k/uL (150-450) D 12/25/19 15:12 Neutrophils % 80 % 12/25/19 15:12 Lymphocytes % 12 % 12/25/19 15:12 Monocytes % 6 % 12/25/19 15:12 Eosinophils % 1 % 12/25/19 15:12 Basophils % 0 % 12/25/19 15:12 Neutrophils # 6.7 k/uL (1.3-7.7) 12/25/19 15:12 Lymphocytes # 1.0 k/uL (1.0-4.8) 12/25/19 15:12 Monocytes # 0.5 k/uL (0-1.0) 12/25/19 15:12 Eosinophils # 0.0 k/uL (0-0.7) 12/25/19 15:12 Basophils # 0.0 k/uL (0-0.2) 12/25/19 15:12 PT 12.2 sec (9.0-12.0) H 12/25/19 15:12 INR 1.2 (<1.2) H 12/25/19 15:12 APTT 27.3 sec (22.0-30.0) 12/25/19 15:12 Sample Site [place] 12/25/19 15:07 ABG pH 7.32 (7.35-7.45) L 12/25/19 15:07 ABG pCO2 53 mmHg (35-45) H 12/25/19 15:07 ABG pO2 258 mmHg (83-108) H 12/25/19 15:07 ABG HCO3 28 mmol/L (21-25) H 12/25/19 15:07 ABG Total CO2 29 mmol/L (19-24) H 12/25/19 15:07 ABG O2 Saturation 99.6 % (94-97) H 12/25/19 15:07 ABG Base Excess 1.6 mmol/L 12/25/19 15:07 ABG Hematocrit 31 % (34.0-46.0) L 12/25/19 14:02 Lenard Test no 12/25/19 15:07 ABG Sodium 136 mmol/L (135-146) 12/25/19 14:02 ABG Potassium 3.6 mmol/L (3.4-4.5) 12/25/19 14:02 ABG Ionized Calcium 4.8 mg/dL (4.5-5.3) 12/25/19 14:02 ABG Glucose 113 mg/dL (75-99) H 12/25/19 14:02 ABG Lactic Acid 1.5 mmol/L (0.5-1.6) 12/25/19 14:02 Hemoglobin 10.0 gm/dL (11.4-16.0) L 12/25/19 14:02 FiO2 100 % 12/25/19 15:07 Sodium 135 mmol/L (137-145) L 12/25/19 15:12 Potassium 4.0 mmol/L (3.5-5.1) 12/25/19 15:12 Chloride 103 mmol/L (98-107) 12/25/19 15:12 Carbon Dioxide 27 mmol/L (22-30) 12/25/19 15:12 Anion Gap 5 mmol/L 12/25/19 15:12 BUN 19 mg/dL (7-17) H 12/25/19 15:12 Creatinine 0.61 mg/dL (0.52-1.04) 12/25/19 15:12 Est GFR (CKD-EPI)AfAm >90 (>60 ml/min/1.73 sqM) 12/25/19 15:12 Est GFR (CKD-EPI)NonAf >90 (>60 ml/min/1.73 sqM) 12/25/19 15:12 Glucose 91 mg/dL (74-99) 12/25/19 15:12 POC Glucose (mg/dL) 152 mg/dL (75-99) H 12/25/19 16:16 POC Glu Bottoming Room Supervisor ID Winston Myles 12/25/19 16:16 Calcium 8.3 mg/dL (8.4-10.2) L 12/25/19 15:12 Ionized Calcium May 5.0 mg/dL (4.5-5.3) 12/25/19 15:12 Magnesium 2.6 mg/dL (1.6-2.3) H 12/25/19 15:12 Total Bilirubin 0.6 mg/dL (0.2-1.3) 12/25/19 15:12 AST 30 U/L (14-36) 12/25/19 15:12 ALT 12 U/L (4-34) 12/25/19 15:12 Alkaline Phosphatase 32 U/L (38-126) L 12/25/19 15:12 Total Protein 4.5 g/dL (6.3-8.2) L 12/25/19 15:12 Albumin 2.7 g/dL (3.5-5.0) L 12/25/19 15:12 Arterial Blood Potassium 3.6 mmol/L (3.4-4.5) 12/25/19 14:02 Arterial Blood Glucose 113 mg/dL (75-99) H 12/25/19 14:02 PT/INR, D-dimer PT 12.2 sec (9.0-12.0) H 12/25/19 15:12 INR 1.2 (<1.2) H 12/25/19 15:12 Abnormal lab findings: Abnormal Labs 12/12/19 12/23/19 12/25/19 09:05 10:10 10:45 RBC Hgb Hct PT INR ABG pH 7.47 H ABG pCO2 ABG pO2 350 H ABG HCO3 28 H ABG Total CO2 29 H ABG O2 Saturation 99.8 H ABG Hematocrit ABG Sodium ABG Potassium ABG Ionized Calcium ABG Glucose 116 H ABG Lactic Acid Hemoglobin Sodium BUN POC Glucose (mg/dL) Calcium Magnesium Alkaline Phosphatase Total Protein Albumin Arterial Blood Potassium Arterial Blood Glucose 116 H Crossmatch See Detail See Detail 12/25/19 12/25/19 12/25/19 11:29 12:00 12:32 RBC Hgb Hct PT INR ABG pH ABG pCO2 46 H ABG pO2 209 H 352 H 318 H ABG HCO3 26 H 26 H ABG Total CO2 28 H 28 H 26 H ABG O2 Saturation 99.7 H 99.8 H 100.0 H ABG Hematocrit 31 L 24 L 24 L ABG Sodium 132 L 134 L ABG Potassium 4.8 H ABG Ionized Calcium 4.2 L 4.2 L ABG Glucose 121 H 198 H 205 H ABG Lactic Acid 2.5 H* 1.9 H 2.2 H* Hemoglobin 10.0 L 7.8 L 7.9 L Sodium BUN POC Glucose (mg/dL) Calcium Magnesium Alkaline Phosphatase Total Protein Albumin Arterial Blood Potassium 4.8 H Arterial Blood Glucose 121 H 198 H 205 H Crossmatch 12/25/19 12/25/19 12/25/19 14:02 14:51 15:07 RBC Hgb Hct PT INR ABG pH 7.32 L ABG pCO2 53 H ABG pO2 201 H 258 H ABG HCO3 26 H 28 H ABG Total CO2 27 H 29 H ABG O2 Saturation 99.6 H 99.6 H ABG Hematocrit 31 L ABG Sodium ABG Potassium ABG Ionized Calcium ABG Glucose 113 H ABG Lactic Acid Hemoglobin 10.0 L Sodium BUN POC Glucose (mg/dL) 106 H Calcium Magnesium Alkaline Phosphatase Total Protein Albumin Arterial Blood Potassium Arterial Blood Glucose 113 H Crossmatch 12/25/19 12/25/19 12/25/19 15:12 15:12 15:12 RBC 3.17 L Hgb 9.5 L D Hct 28.1 L PT 12.2 H INR 1.2 H ABG pH ABG pCO2 ABG pO2 ABG HCO3 ABG Total CO2 ABG O2 Saturation ABG Hematocrit ABG Sodium ABG Potassium ABG Ionized Calcium ABG Glucose ABG Lactic Acid Hemoglobin Sodium 135 L BUN 19 H POC Glucose (mg/dL) Calcium 8.3 L Magnesium 2.6 H Alkaline Phosphatase 32 L Total Protein 4.5 L Albumin 2.7 L Arterial Blood Potassium Arterial Blood Glucose Crossmatch 12/25/19 16:16 RBC Hgb Hct PT INR ABG pH ABG pCO2 ABG pO2 ABG HCO3 ABG Total CO2 ABG O2 Saturation ABG Hematocrit ABG Sodium ABG Potassium ABG Ionized Calcium ABG Glucose ABG Lactic Acid Hemoglobin Sodium BUN POC Glucose (mg/dL) 152 H Calcium Magnesium Alkaline Phosphatase Total Protein Albumin Arterial Blood Potassium Arterial Blood Glucose Crossmatch - Diagnostic Findings Chest x-ray: image reviewed Assessment and Plan Plan: 1 severe aortic stenosis post aortic valve replacement. The patient is postop day #0. The patient arrived to the intensive care unit intubated on a mechanical ventilator. 2 Post thoracotomy, chest x-ray showing adequate expansion of both lungs without any evidence of pneumothorax. Chest tubes are in place. The patient came to us with an SIMV mode of ventilation. She did have some respiratory acidosis on her blood gas. Necessity ventilator changes were done. 3 hypertension currently on Cleviprex for blood pressure control. Hemodynamic parameters are all stable 4 Diabetes mellitus 5 hyperlipidemia 6 hypertension Plan Wean off propofol slowly. Necessity ventilator changes were done. I put the patient on assist control mode of ventilation. Likely the tidal volume of 400 and put the rate up to 12. I dropped the PEEP down to 5 and The saturation at 50%. Bronchodilators [id number] with albuterol Monitor the hemodynamic parameters Monitor cardiac output Monitor the output from the chest tube Cleviprex for blood pressure control Initiate insulin drip for blood sugar control We'll continue to follow
[2019-12-25] MEDS: LACTATED RINGERS 1,000 ML IV SCH (16:34)
[2019-12-25 17:00] LABS: Glucose,Whole Blood 161 mg/dL (75-99)
[2019-12-25] MEDS: KETOROLAC 30 MG/ML 1 ML VIAL IVP SCH ×2 (17:04→23:21)
[2019-12-25] MEDS: IPRATROPIUM-ALBUTEROL 3 ML NEB INHALATION SCH (17:20)
[2019-12-25 18:15] LABS: Glucose,Whole Blood 151 mg/dL (75-99)
[2019-12-25 18:38] LABS: Basophils % (A) 0 %; Eosinophils # (A) 0.1 k/uL (0-0.7); Eosinophils % (A) 1 %; HCT 32.3 % (34.0-46.0); HGB 10.7 gm/dL (11.4-16.0); Lymphocytes # (A) 0.7 k/uL (1.0-4.8); Lymphocytes % (A) 7 %; MCH 29.4 pg (25.0-35.0); MCHC 33.1 g/dL (31.0-37.0); MCV 88.8 fL (80.0-100.0); Mean Platelet Volume 6.8; Monocytes # (A) 0.4 k/uL (0-1.0); Monocytes % (A) 4 %; Neutrophils # (A) 9.3 k/uL (1.3-7.7); Neutrophils % (A) 88 %; Platelet Count 181 k/uL (150-450); RBC 3.64 m/uL (3.80-5.40); RDW 13.2 % (11.5-15.5); WBC 10.6 k/uL (3.8-10.6)
[2019-12-25 19:13] LABS: Glucose,Whole Blood 155 mg/dL (75-99)
[2019-12-25 19:24] LABS: ABG Base Excess 0.1 mmol/L; ABG HCO3 24 mmol/L (21-25); ABG Oxygen Saturation 96.8 % (94-97); ABG PCO2 36 mmHg (35-45); ABG PH 7.44 (7.35-7.45); ABG PO2 96 mmHg (83-108); ABG TCO2 25 mmol/L (19-24)
[2019-12-25 19:27] LABS: Allen Test Performed? no
[2019-12-25 20:11] LABS: Glucose,Whole Blood 156 mg/dL (75-99)
[2019-12-25] MEDS ORDERED: MUPIROCIN 2% OINT 22 GM TUBE NASAL ONE (20:45)
[2019-12-25 21:14] LABS: Glucose,Whole Blood 150 mg/dL (75-99)
[2019-12-25 21:49] LABS: ABG Base Excess 1.6 mmol/L; ABG HCO3 26 mmol/L (21-25); ABG Oxygen Saturation 97.1 % (94-97); ABG PCO2 43 mmHg (35-45); ABG PO2 87 mmHg (83-108); ABG TCO2 28 mmol/L (19-24)
[2019-12-25 21:57] LABS: Allen Test Performed? no
[2019-12-25 22:08] LABS: Glucose,Whole Blood 145 mg/dL (75-99)
--- NOTE | 2019-12-25 22:17 | OP ---
OPERATIVE REPORT DATE OF THE OPERATION: 12/25/2019. ATTENDING SURGEON: Dr. Gómez Benjamin. ASSISTANTS: Tashi Huerta and Lili Cam. PREOPERATIVE DIAGNOSIS: Severe aortic stenosis, symptomatic. POSTOPERATIVE DIAGNOSIS: Severe aortic stenosis, symptomatic. PROCEDURE PERFORMED: Aortic valve replacement with a #21 mm Ross Inspirus bioprosthetic aortic valve, clip ligation of the left atrial appendage with a #35 mm AtriClip and intraoperative KESHAV. ANESTHESIA: General. BLOOD LOSS: 500 mL. SUMMARY: The patient brought to the operating room, placed in the supine position. Following administration of a general endotracheal anesthetic, placement of a [place]-Adrian catheter arterial line, adequate IV access and a Ivy catheter, patient carefully prepped and draped in normal sterile fashion using chlorhexidine paint and sterile towels. A midline incision in the chest made and sternum divided. Pericardium was opened. Heart size was mildly enlarged. Aorta was soft. At this point, a KESHAV showed only mild central mitral regurgitation, may be even slightly less than mild and therefore it was determined that a mitral valve repair was not necessary. The patient was heparinized to an AST of greater than 480. The aorta and vena cava were to be cannulated. Antegrade and retrograde cardioplegic catheters positioned in the ascending aorta and the coronary sinus. The patient was placed on bypass cross- clamp placed, heart arrested with 1 of antegrade followed by 500 mL retrograde cardioplegia. Retrograde cardioplegia was delivered 3-500 mL at the end of each 20 minute interval. Following arrest of the heart, the base of the left atrial appendage was measured. A 35 mm AtriClip was placed at the base officially obliterating the left atrial appendage. At this point, a transverse aortotomy incision was made 2 cm distal to the takeoff of the right coronary artery. A handheld retractor was placed. The aortic valve was trileaflet and very heavily calcified. The leaflets were excised. The anulus debrided and it was irrigated out copiously with 2 L of cold saline. While the valve was prepared in the usual fashion, 2-0 [place] pledgeted sutures were placed, ventricularly based circumferentially. These were then passed through the sewing cuff of the valve which was then seated and seated well. All sutures were then secured using the core knot ligature system device. At this point, a retrograde cardioplegia was run and return was seen in both coronary ostia. At this point, the aortotomy incision was closed in a double layered pledgeted 4-0 Prolene vertical mattress followed by an over- and over stitch from both sites. Complete de-airing maneuvers were performed three times. 1 L of warm blood retrograde cardioplegia was run. Cross- clamp was removed. Once beating and in normal sinus rhythm, the patient was brought off bypass. Came off bypass uneventfully with good hemodynamics. Protamine delivered. Patient decannulated. Atrial ventricular pacing wires were placed. Mediastinal right pleural chest tubes were placed. At this point, the sternum was closed with 4 #6 sternal wires and 2 [id number] [place] sternal cable closure devices. The skin and subcutaneous tissue and fascia closed in 3 layers. No complications. The patient tolerated procedure well, was taken to the ICU in critical but stable condition. Postoperative KESHAV showed excellent valve function, good left ventricular and right ventricular function. No perivalvular leak. The patient was then transported to the ICU in critical but stable condition. MMODL / IJN: [id number] /
[2019-12-25 22:46] LABS: Basophils % (A) 0 %; Eosinophils % (A) 0 %; HCT 32.8 % (34.0-46.0); Lymphocytes # (A) 0.4 k/uL (1.0-4.8); Lymphocytes % (A) 4 %; MCHC 33.6 g/dL (31.0-37.0); MCV 89.3 fL (80.0-100.0); Mean Platelet Volume 7.2; Monocytes # (A) 0.4 k/uL (0-1.0); Monocytes % (A) 4 %; Neutrophils # (A) 10.6 k/uL (1.3-7.7); Neutrophils % (A) 92 %; Platelet Count 184 k/uL (150-450); RBC 3.67 m/uL (3.80-5.40); RDW 13.2 % (11.5-15.5); WBC 11.5 k/uL (3.8-10.6)
[2019-12-25 23:03] LABS: Glucose,Whole Blood 143 mg/dL (75-99)
[2019-12-25] MEDS: HEPARIN SODIUM,PORCINE 5,000 UNIT/ML 1 ML VIAL SQ SCH (23:21)
[2019-12-25 23:58] LABS: Glucose,Whole Blood 141 mg/dL (75-99)
[2019-12-26] MEDS: HEPARIN SODIUM,PORCINE 5,000 UNIT/ML 1 ML VIAL SQ SCH ×4 (00:06→23:20)
[2019-12-26] MEDS: IPRATROPIUM-ALBUTEROL 3 ML NEB INHALATION SCH ×6 (00:45→21:16)
[2019-12-26 01:02] LABS: Glucose,Whole Blood 126 mg/dL (75-99)
[2019-12-26 02:12] LABS: Glucose,Whole Blood 123 mg/dL (75-99)
[2019-12-26] MEDS ORDERED: HYDROcodone/APAP 5-325MG 1 EACH TAB PO PRN (02:58)
[2019-12-26 03:10] LABS: Glucose,Whole Blood 123 mg/dL (75-99)
[2019-12-26] MEDS: HYDROcodone/APAP 5-325MG 1 EACH TAB PO PRN ×2 (04:19→21:25)
[2019-12-26 04:23] LABS: Glucose,Whole Blood 121 mg/dL (75-99)
[2019-12-26 04:34] LABS: Basophils % (A) 0 %; Eosinophils % (A) 0 %; HGB 10.2 gm/dL (11.4-16.0); Lymphocytes # (A) 0.7 k/uL (1.0-4.8); Lymphocytes % (A) 7 %; MCH 29.3 pg (25.0-35.0); MCV 88.9 fL (80.0-100.0); Mean Platelet Volume 7.4; Monocytes # (A) 0.5 k/uL (0-1.0); Monocytes % (A) 5 %; Neutrophils # (A) 8.8 k/uL (1.3-7.7); Neutrophils % (A) 87 %; Platelet Count 177 k/uL (150-450); RBC 3.49 m/uL (3.80-5.40); RDW 13.3 % (11.5-15.5); WBC 10.1 k/uL (3.8-10.6)
[2019-12-26 04:40] LABS: Ionized Calcium 4.7 mg/dL (4.5-5.3)
[2019-12-26 04:52] LABS: ALT 17 U/L (4-34); AST 49 U/L (14-36); African American GFR (CKD) >90 (>60 ml/min/1.73 sqM); Albumin 3.2 g/dL (3.5-5.0); Alkaline Phosphatase 49 U/L (38-126); Anion Gap 6 mmol/L; Blood Urea Nitrogen 20 mg/dL (7-17); Calcium 8.2 mg/dL (8.4-10.2); Carbon Dioxide 26 mmol/L (22-30); Chloride 102 mmol/L (98-107); Glucose 114 mg/dL (74-99); Magnesium 2.1 mg/dL (1.6-2.3); Non-African American GFR(CKD) >90 (>60 ml/min/1.73 sqM); Potassium 4.1 mmol/L (3.5-5.1); Sodium 134 mmol/L (137-145); Total Bilirubin 0.5 mg/dL (0.2-1.3)
[2019-12-26] MEDS: KETOROLAC 30 MG/ML 1 ML VIAL IVP SCH ×4 (06:02→23:20)
[2019-12-26 06:12] LABS: Glucose,Whole Blood 127 mg/dL (75-99)
--- NOTE | 2019-12-26 07:41 | P.CRDCN ---
History of Present Illness Consult date: 12/26/19 Chief complaint: Status post aVR History of present illness: This is a very pleasant 69-year-old female patient who sees Dr. Enrique as an outpatient who underwent yesterday aortic valve replacement using bioprosthetic valve for severe symptomatic aortic stenosis. This is postoperative day #1. The patient was extubated yesterday at the day of the surgery. Overall clinically she is doing well. She has been hemodynamically stable and not r equiring any vasopressors. The blood pressure has been on the higher side. She has been making marginal urine. We will follow-up on the chest x-ray from this morning. The blood work was reviewed as well as given to be unremarkable. The physical examination also unremarkable. The urine output is marginal at this point but she did make good urine overnight. The patient denies any active chest pain or chest discomfort, denies any shortness of breath. The pacer wires still there. So far the patient has been maintaining normal sinus mechanism. She is on aspirin, high intensity statin, and also she is on metoprolol. The patient currently is not on any Plavix at this point and I will verify that with the surgical team. Past Medical History Past Medical History: Diabetes Mellitus, GERD/Reflux, Hyperlipidemia, Hypertension Additional Past Medical History / Comment(s): Hx. of pre diabetes not currently taking any medication. The patient had severe aortic stenosisBased on recent KESHAV, the patient's preoperative aortic valve area was 0.8 cm and the patient also had a moderate degree of mitral regurgitation. History of Any Multi-Drug Resistant Organisms: None Reported Past Surgical History: Appendectomy, Tubal Ligation Additional Past Surgical History / Comment(s): Colonoscopy. EGD. Past Anesthesia/Blood Transfusion Reactions: No Reported Reaction Additional Past Anesthesia/Blood Transfusion Reaction / Comment(s): no hx blood transfusion Smoking Status: Never smoker - Past Family History Mother Family Medical History: Cancer Additional Family Medical History / Comment(s): Skin Sister(s) Family Medical History: Cancer Additional Family Medical History / Comment(s): Breast Brother(s) Family Medical History: Cancer, CVA/TIA Father Family Medical History: Cancer Additional Family Medical History / Comment(s): multiple myeloma Medications and Allergies Home Medications Medication Instructions Recorded Confirmed Type Atorvastatin [Lipitor] 40 mg PO HS 10/15/19 12/25/19 History Lisinopril [Zestril] 10 mg PO DAILY 10/15/19 12/25/19 History Multivitamins, Thera [Multivitamin 1 tab PO DAILY 10/15/19 12/25/19 History (formulary)] Omeprazole [PriLOSEC] 40 mg PO DAILY 10/15/19 12/25/19 History Triamterene-Hctz 37.5-25Mg 1 cap PO DAILY 10/15/19 12/25/19 History [Dyazide 37.5-25 Capsule] Vit C/E/Zn/Coppr/Lutein/Zeaxan 1 each PO BID 10/15/19 12/25/19 History [Preservision Areds 2 Softgel] amLODIPine BESYLATE [Norvasc] 2.5 mg PO DAILY 10/15/19 12/25/19 History Mupirocin 2% Oint [Bactroban 2% 1 applic TOPICAL BID 12/12/19 12/25/19 History Oint] Cyanocobalamin (Vitamin B-12) 1,000 mcg PO DAILY 12/20/19 12/25/19 History [Vitamin B-12] Allergies Allergy/AdvReac Type Severity Reaction Status Date / Time No Known Allergies Allergy Verified 12/25/19 07:48 Physical Exam Vitals: Vital Signs Temp Pulse Pulse Resp BP BP Pulse Ox 12/26/19 07:00 81 10 L 101/60 97 12/26/19 06:30 74 16 106/64 97 12/26/19 06:00 74 25 H 96/64 96 12/26/19 05:30 80 28 H 111/57 97 12/26/19 05:00 73 35 H 103/54 97 12/26/19 04:30 71 39 H 103/56 97 12/26/19 04:00 98.8 F 71 29 H 93/56 97 12/26/19 03:30 70 19 100/56 98 12/26/19 03:00 76 20 96/59 98 12/26/19 02:30 79 27 H 101/55 97 12/26/19 02:00 75 16 92/52 97 12/26/19 01:30 81 29 H 92/56 97 12/26/19 01:00 78 15 94/56 96 12/26/19 00:46 97 12/26/19 00:30 78 16 101/54 96 12/26/19 00:00 98.6 F 78 18 110/57 95 12/25/19 23:36 81 18 96 12/25/19 23:30 98.5 F 82 19 102/57 97 12/25/19 23:00 80 16 104/60 95 12/25/19 22:30 79 20 106/53 92 L 12/25/19 22:17 93 L 12/25/19 22:00 86 20 111/55 95 12/25/19 21:30 79 26 H 103/63 96 12/25/19 21:00 77 17 107/60 97 12/25/19 20:30 78 9 L 106/61 97 12/25/19 20:15 77 18 102/58 97 12/25/19 20:00 98.4 F 88 24 146/73 96 12/25/19 19:45 80 23 99 12/25/19 19:30 83 17 98 12/25/19 19:15 84 9 L 120/74 98 12/25/19 19:00 96 17 103/62 100 12/25/19 18:45 71 6 L 100 12/25/19 18:30 97.7 F 72 15 100 12/25/19 18:15 71 12 100 12/25/19 18:00 71 24 98 12/25/19 17:45 97.3 F L 76 23 97 12/25/19 17:31 65 12/25/19 17:30 74 19 100 12/25/19 17:21 65 12/25/19 17:15 68 8 L 97 12/25/19 17:00 69 35 H 97 12/25/19 16:45 70 36 H 98 12/25/19 16:30 69 24 96 12/25/19 16:15 69 23 100 12/25/19 16:00 70 16 100 12/25/19 15:45 70 12 100 12/25/19 15:30 69 20 100 12/25/19 15:15 70 12 100 12/25/19 15:00 96.8 F L 69 16 100 12/25/19 14:51 70 21 12/25/19 07:54 98.5 F 71 16 167/77 100 Intake and Output 12/25/19 12/26/19 12/26/19 22:59 06:59 14:59 Intake Total 1047.799 640.754 89 Output Total 924 596 12 Balance 123.799 44.754 77 Intake: IV 360 415 89 Co/CI 260 120 30 Lactated Ringers 1,000 ml 250 50 @ 50 mls/hr IV .Q20H [facility] Rx#:[id number] Potassium 20 meq 100 pressure bags 45 9 Intake, IV Titration 687.799 225.754 Amount ACETAMINOPHEN IV (For NPO 200 ) 1,000 mg In Empty Bag 1 bag @ 400 mls/hr IVPB Q6H [facility] Rx#:[id number] Clevidipine Butyrate 25 29.366 13.600 mg In Empty Bag 1 bag @ 1 MG/HR 2 mls/hr IV .Q24H [facility] Rx#:[id number] Insulin Regular 100 unit 8.433 12.154 In Sodium Chloride 0.9% 100 ml @ Per Protocol IV .Q0M [facility] Rx#:[id number] Lactated Ringers 1,000 ml 400 150 @ 50 mls/hr IV .Q20H [facility] Rx#:[id number] ceFAZolin 2 gm In Sodium 50 50 Chloride 0.9% 50 ml @ 100 mls/hr IVPB Q8HR [facility] Rx# :[id number] Output: Chest Tube Drainage 196 194 10 Chest Tube Right Pleural/ 196 194 10 Mediastinal Urine 728 402 2 Other: Voiding Method Indwelling Catheter Indwelling Catheter Weight 93.4 kg ABP, PAP, CO, CI - Last 8 Hours Arterial Blood Pressure 123/48 Arterial Blood Pressure 133/49 Arterial Blood Pressure 137/50 Arterial Blood Pressure 150/55 Arterial Blood Pressure 140/54 Arterial Blood Pressure 129/51 Arterial Blood Pressure 136/51 Arterial Blood Pressure 140/52 Arterial Blood Pressure 141/53 Arterial Blood Pressure 147/56 Arterial Blood Pressure 142/51 Arterial Blood Pressure 147/49 Arterial Blood Pressure 146/49 Arterial Blood Pressure 137/47 Arterial Blood Pressure 130/45 Pulmonary Artery Pressure 31/8 Pulmonary Artery Pressure 30/4 Pulmonary Artery Pressure 27/9 Pulmonary Artery Pressure 28/11 Pulmonary Artery Pressure 30/10 Pulmonary Artery Pressure 30/8 Pulmonary Artery Pressure 30/8 Pulmonary Artery Pressure 30/9 Pulmonary Artery Pressure 30/10 Pulmonary Artery Pressure 31/10 Pulmonary Artery Pressure 29/9 Pulmonary Artery Pressure 29/8 Pulmonary Artery Pressure 29/8 Pulmonary Artery Pressure 28/8 Pulmonary Artery Pressure 28/9 Cardiac Output 4.2 Cardiac Output 4.5 Cardiac Output 5.1 Cardiac Index 2.3 Cardiac Index 2.4 Cardiac Index 2.8 - Constitutional General appearance: no acute distress - Respiratory Respiratory: bilateral: diminished - Cardiovascular Rhythm: regular Heart sounds: normal: S1, S2 Results 12/26/19 04:22 12/26/19 04:22 Cardiac Enzymes 12/25/19 12/26/19 Range/Units 15:12 04:22 AST 30 49 H (14-36) U/L Coagulation 12/25/19 Range/Units 15:12 PT 12.2 H (9.0-12.0) sec APTT 27.3 (22.0-30.0) sec CBC 12/25/19 12/25/19 12/25/19 Range/Units 15:12 18:20 22:20 WBC 8.3 10.6 11.5 H (3.8-10.6) k/uL RBC 3.17 L 3.64 L 3.67 L (3.80-5.40) m/uL Hgb 9.5 L D 10.7 L 11.0 L (11.4-16.0) gm/dL Hct 28.1 L 32.3 L 32.8 L (34.0-46.0) % Plt Count 163 D 181 184 (150-450) k/uL 12/26/19 Range/Units 04:22 WBC 10.1 (3.8-10.6) k/uL RBC 3.49 L (3.80-5.40) m/uL Hgb 10.2 L (11.4-16.0) gm/dL Hct 31.0 L (34.0-46.0) % Plt Count 177 (150-450) k/uL Comprehensive Metabolic Panel 12/25/19 12/26/19 Range/Units 15:12 04:22 Sodium 135 L 134 L (137-145) mmol/L Potassium 4.0 4.1 (3.5-5.1) mmol/L Chloride 103 102 (98-107) mmol/L Carbon Dioxide 27 26 (22-30) mmol/L BUN 19 H 20 H (7-17) mg/dL Creatinine 0.61 0.56 (0.52-1.04) mg/dL Glucose 91 114 H (74-99) mg/dL Calcium 8.3 L 8.2 L (8.4-10.2) mg/dL AST 30 49 H (14-36) U/L ALT 12 17 (4-34) U/L Alkaline Phosphatase 32 L 49 (38-126) U/L Total Protein 4.5 L 5.0 L (6.3-8.2) g/dL Albumin 2.7 L 3.2 L (3.5-5.0) g/dL Current Medications Generic Name Dose Route Start Last Admin Trade Name Freq PRN Reason Stop Dose Admin Hydrocodone Bitart/Acetaminophen 2 each 12/26/19 02:58 [place] 5-325 PO Q4HR PRN Severe Pain Hydrocodone Bitart/Acetaminophen 1 each 12/26/19 02:59 12/26/19 04:19 [place] 5-325 PO 1 each Q4HR PRN Administration Moderate Pain Albuterol/Ipratropium 3 ml 12/25/19 15:06 Duoneb 0.5 Mg-3 Mg/3 Ml Soln INHALATION RT-Q2H PRN Shortness Of Breath Or Wheezing Albuterol/Ipratropium 3 ml 12/25/19 21:00 12/26/19 00:45 Duoneb 0.5 Mg-3 Mg/3 Ml Soln INHALATION Not Given RT-QID [facility] Aspirin 325 mg 12/26/19 09:00 Aspirin PO DAILY [facility] Atorvastatin Calcium 40 mg 12/26/19 09:00 Lipitor PO DAILY [facility] Benzocaine/Menthol 1 each 12/25/19 15:06 Cepacol Lozenge MUCOUS MEM Q2H PRN Sore Throat Bisacodyl 10 mg 12/26/19 09:00 Dulcolax RECTAL DAILY PRN Constipation Heparin Sodium (Porcine) 5,000 unit 12/25/19 23:00 12/26/19 00:06 Heparin SQ Not Given Q8HR [facility] Amiodarone HCl 150 mg/ 103 mls @ 618 mls/hr 12/25/19 15:06 Dextrose/Water IV .Q10M PRN A.FIB/FLUTTER Protocol Amiodarone HCl 360 mg/ 200 mls @ 33.333 mls/hr 12/25/19 15:06 Dextrose/Water IV .Q6H PRN A.FIB/FLUTTER Protocol 1 MG/MIN Amiodarone HCl 300 mg/ 250 mls @ 25 mls/hr 12/25/19 15:06 Dextrose/Water IV .Q10H PRN A.FIB/FLUTTER Protocol 0.5 MG/MIN Albumin Human 250 ml/ IV 250 mls @ 250 mls/hr 12/25/19 15:06 Solution IVPB 12/27/19 15:07 Q1HR PRN For Volume Lactated Ringer's 1,000 mls @ 20 mls/hr 12/25/19 15:06 12/25/19 16:34 Lactated Ringers IV 50 mls/hr .Q24H [facility] Administration Cefazolin Sodium 2 gm/ Sodium 50 mls @ 100 mls/hr 12/25/19 16:00 12/25/19 23:22 Chloride IVPB 100 mls/hr Q8HR [facility] Administration Calcium Gluconate 2 gm/ Sodium 120 mls @ 100 mls/hr 12/25/19 15:06 Chloride IVPB 12/26/19 15:07 ONCE PRN Ionized Calcium less than 4.4 Insulin Human Regular 100 unit 101 mls @ 0 mls/hr 12/25/19 15:15 12/26/19 02:18 / Sodium Chloride IV 1.5 units/hr .Q0M [facility] 1.515 mls/hr Titration Protocol Per Protocol Clevidipine 25 mg/ IV Solution 50 mls @ 2 mls/hr 12/25/19 17:45 12/26/19 01:45 IV 0 mg/hr .Q24H [facility] 0 mls/hr Titration Protocol 1 MG/HR Ketorolac Tromethamine 15 mg 12/25/19 18:00 12/26/19 06:02 Toradol IVP 12/29/19 18:01 15 mg Q6HR [facility] Administration Magnesium Hydroxide 2,400 mg 12/26/19 09:00 Milk Of Magnesia PO BID PRN Constipation Metoprolol Tartrate 25 mg 12/26/19 09:00 Lopressor PO BID [facility] Miscellaneous Information 1 each 12/25/19 15:06 Potassium Per Protocol MISCELLANE DAILY PRN Per Protocol Protocol Miscellaneous Information 1 each 12/25/19 15:06 Magnesium Per Protocol MISCELLANE DAILY PRN Per Protocol Protocol Miscellaneous Information 1 each 12/25/19 15:06 Phosphorus Per Protocol MISCELLANE DAILY PRN Per Protocol Protocol Ondansetron HCl 4 mg 12/25/19 15:06 12/26/19 06:04 Zofran IVP 4 mg Q6HR PRN Administration Nausea And Vomiting Pantoprazole Sodium 40 mg 12/26/19 07:30 Protonix PO AC-BRKFST [facility] Senna/Docusate Sodium 2 each 12/26/19 21:00 Senokot-S PO HS [facility] Intake and Output 12/25/19 12/26/19 12/26/19 22:59 06:59 14:59 Intake Total 1047.799 640.754 89 Output Total 924 596 12 Balance 123.799 44.754 77 Intake: IV 360 415 89 Co/CI 260 120 30 Lactated Ringers 1,000 ml 250 50 @ 50 mls/hr IV .Q20H [facility] Rx#:[id number] Potassium 20 meq 100 pressure bags 45 9 Intake, IV Titration 687.799 225.754 Amount ACETAMINOPHEN IV (For NPO 200 ) 1,000 mg In Empty Bag 1 bag @ 400 mls/hr IVPB Q6H [facility] Rx#:[id number] Clevidipine Butyrate 25 29.366 13.600 mg In Empty Bag 1 bag @ 1 MG/HR 2 mls/hr IV .Q24H [facility] Rx#:[id number] Insulin Regular 100 unit 8.433 12.154 In Sodium Chloride 0.9% 100 ml @ Per Protocol IV .Q0M [facility] Rx#:[id number] Lactated Ringers 1,000 ml 400 150 @ 50 mls/hr IV .Q20H [facility] Rx#:[id number] ceFAZolin 2 gm In Sodium 50 50 Chloride 0.9% 50 ml @ 100 mls/hr IVPB Q8HR [facility] Rx# :[id number] Output: Chest Tube Drainage 196 194 10 Chest Tube Right Pleural/ 196 194 10 Mediastinal Urine 728 402 2 Other: Voiding Method Indwelling Catheter Indwelling Catheter Weight 93.4 kg 12/26/19 04:22 12/26/19 04:22 Assessment and Plan Assessment: Assessment #1 status post aortic valve replacement #2 diabetes type 2 #3 hypertension #4 dyslipidemia Plan #1 continue the current medical regimen including aspirin, statin, and metoprolol #2 monitor the heart rhythm. So far she has been maintaining normal sinus mechanism #3 continue monitor the blood work including CBC and BMP #4 follow-up with the patient Thank you for allowing us participate in her care
--- NOTE | 2019-12-26 08:43 | P.PN ---
Subjective Progress Note Date: 12/26/19 On today's evaluation of 12/26/2019 the patient is postop day #1 following an aortic valve replacement and atrial appendage clipping. She is doing well. She got extubated yesterday at around 10:00 pH she did extremely well and currently she is in oxygen at 3 L per minute nasal cannula. Chest x-ray showing adequate expansion of both lungs and there are postsurgical changes. The patient has a right pleural chest tube and a mediastinal chest tubes are all connected and output has been minimal. The net output since she got from the operating room is in the order of 400 mL. There is no evidence of any air leak. She is in a sinus rhythm. She was on clevidipine drip postop and she is currently off the drip. Her CVP is about 6. Cardiac index is 2.4 with a output of 4.4. Pain is under good control. She is pulling the approximately 7 50 mL on incentive spirometer. Morning hemoglobin is at 10.2. Platelet count is at 177. The patient was slightly oliguric this morning and the patient is given 250 mL of 5% albumin. Objective - Vital Signs Vital signs: Vital Signs Temp 98.8 F 12/26/19 04:00 Pulse 77 12/26/19 08:34 Resp 10 L 12/26/19 07:00 BP 101/60 12/26/19 07:00 Pulse Ox 97 12/26/19 07:00 Intake & Output 12/25/19 12/26/19 12/26/19 18:59 06:59 18:59 Intake Total 796.433 4751.165 89 Output Total 1523 1097 12 Balance -888.612 -11.835 77 Weight 86 kg 93.4 kg Intake: IV 271 535 89 Co/CI 140 240 30 Lactated Ringers 1,000 ml 250 50 @ 50 mls/hr IV .Q20H [facility] Rx#:[id number] Potassium 20 meq 100 pressure bags 45 9 Intake, IV Titration 363.388 550.165 Amount ACETAMINOPHEN IV (For NPO 100 100 ) 1,000 mg In Empty Bag 1 bag @ 400 mls/hr IVPB Q6H [facility] Rx#:[id number] Clevidipine Butyrate 25 9.5 33.466 mg In Empty Bag 1 bag @ 1 MG/HR 2 mls/hr IV .Q24H [facility] Rx#:[id number] Insulin Regular 100 unit 3.888 16.699 In Sodium Chloride 0.9% 100 ml @ Per Protocol IV .Q0M [facility] Rx#:[id number] Lactated Ringers 1,000 ml 200 350 @ 50 mls/hr IV .Q20H [facility] Rx#:[id number] ceFAZolin 2 gm In Sodium 50 50 Chloride 0.9% 50 ml @ 100 mls/hr IVPB Q8HR [facility] Rx# :[id number] Output: Chest Tube Drainage 120 270 10 Chest Tube Right Pleural/ 120 270 10 Mediastinal Urine 903 827 2 Estimated Blood Loss 500 Other: Voiding Method Indwelling Catheter Indwelling Catheter ABP, PAP, CO, CI - Last Documented Arterial Blood Pressure 123/48 Pulmonary Artery Pressure 31/8 Cardiac Output 4.2 Cardiac Index 2.3 - Exam Gen. appearance awake and alert and sitting up on the recliner. comfortable likely distress. The patient is extubated. Currently she is on oxygen at 3 L per minute nasal cannula with a pulse ox of 96%. Head exam was generally normal. There was no scleral icterus or corneal arcus. Mucous membranes were moist. Neck was supple and without jugular venous distension, thyromegaly, or carotid bruits. Carotids were easily palpable bilaterally. There was no adenopathy. The patient has a right IJ [place] catheter Breath sounds on the lung examination is equal and symmetrical. The patient is a right pleural and mediastinal chest tubes. Output from the chest tube has been 400 mL and has no evidence of any air leak. Cardiac exam revealed the PMI to be normally situated and sized. The rhythm was regular and no extrasystoles were noted during several minutes of auscultation. The first and second heart sounds were normal and physiologic splitting of the second heart sound was noted. There were no murmurs, rubs, clicks, or gallops. Sternum stable clean and intact and the chest tubes are all in place Abdominal exam revealed normal bowel sounds. The abdomen was soft, non-tender, and without masses, organomegaly, or appreciable enlargement of the abdominal aorta. Examination of the extremities revealed easily palpable radial, femoral and pedal pulses. There was no cyanosis, clubbing or edema. Examination of the skin revealed no evidence of significant rashes, suspicious appearing nevi or other concerning lesions. Neurologic is awake and alert and oriented and there is no focal neurological deficits. - Labs CBC & Chem 7: 12/26/19 04:22 12/26/19 04:22 Labs: Abnormal Lab Results - Last 24 Hours (Table) 12/23/19 12/25/19 12/25/19 Range/Units 10:10 10:45 11:29 WBC (3.8-10.6) k/uL RBC (3.80-5.40) m/uL Hgb (11.4-16.0) gm/dL Hct (34.0-46.0) % Neutrophils # (1.3-7.7) k/uL Lymphocytes # (1.0-4.8) k/uL PT (9.0-12.0) sec INR (<1.2) ABG pH 7.47 H (7.35-7.45) ABG pCO2 (35-45) mmHg ABG pO2 350 H 209 H (83-108) mmHg ABG HCO3 28 H 26 H (21-25) mmol/L ABG Total CO2 29 H 28 H (19-24) mmol/L ABG O2 Saturation 99.8 H 99.7 H (94-97) % ABG Hematocrit 31 L (34.0-46.0) % ABG Sodium (135-146) mmol/L ABG Potassium (3.4-4.5) mmol/L ABG Ionized Calcium (4.5-5.3) mg/dL ABG Glucose 116 H 121 H (75-99) mg/dL ABG Lactic Acid 2.5 H* (0.5-1.6) mmol/L Hemoglobin 10.0 L (11.4-16.0) gm/dL Sodium (137-145) mmol/L BUN (7-17) mg/dL Glucose (74-99) mg/dL POC Glucose (mg/dL) (75-99) mg/dL Calcium (8.4-10.2) mg/dL Magnesium (1.6-2.3) mg/dL AST (14-36) U/L Alkaline Phosphatase (38-126) U/L Total Protein (6.3-8.2) g/dL Albumin (3.5-5.0) g/dL Arterial Blood Potassium (3.4-4.5) mmol/L Arterial Blood Glucose 116 H 121 H (75-99) mg/dL Crossmatch See Detail 12/25/19 12/25/19 12/25/19 Range/Units 12:00 12:32 14:02 WBC (3.8-10.6) k/uL RBC (3.80-5.40) m/uL Hgb (11.4-16.0) gm/dL Hct (34.0-46.0) % Neutrophils # (1.3-7.7) k/uL Lymphocytes # (1.0-4.8) k/uL PT (9.0-12.0) sec INR (<1.2) ABG pH (7.35-7.45) ABG pCO2 46 H (35-45) mmHg ABG pO2 352 H 318 H 201 H (83-108) mmHg ABG HCO3 26 H 26 H (21-25) mmol/L ABG Total CO2 28 H 26 H 27 H (19-24) mmol/L ABG O2 Saturation 99.8 H 100.0 H 99.6 H (94-97) % ABG Hematocrit 24 L 24 L 31 L (34.0-46.0) % ABG Sodium 132 L 134 L (135-146) mmol/L ABG Potassium 4.8 H (3.4-4.5) mmol/L ABG Ionized Calcium 4.2 L 4.2 L (4.5-5.3) mg/dL ABG Glucose 198 H 205 H 113 H (75-99) mg/dL ABG Lactic Acid 1.9 H 2.2 H* (0.5-1.6) mmol/L Hemoglobin 7.8 L 7.9 L 10.0 L (11.4-16.0) gm/dL Sodium (137-145) mmol/L BUN (7-17) mg/dL Glucose (74-99) mg/dL POC Glucose (mg/dL) (75-99) mg/dL Calcium (8.4-10.2) mg/dL Magnesium (1.6-2.3) mg/dL AST (14-36) U/L Alkaline Phosphatase (38-126) U/L Total Protein (6.3-8.2) g/dL Albumin (3.5-5.0) g/dL Arterial Blood Potassium 4.8 H (3.4-4.5) mmol/L Arterial Blood Glucose 198 H 205 H 113 H (75-99) mg/dL Crossmatch 12/25/19 12/25/19 12/25/19 Range/Units 14:51 15:07 15:12 WBC (3.8-10.6) k/uL RBC 3.17 L (3.80-5.40) m/uL Hgb 9.5 L D (11.4-16.0) gm/dL Hct 28.1 L (34.0-46.0) % Neutrophils # (1.3-7.7) k/uL Lymphocytes # (1.0-4.8) k/uL PT (9.0-12.0) sec INR (<1.2) ABG pH 7.32 L (7.35-7.45) ABG pCO2 53 H (35-45) mmHg ABG pO2 258 H (83-108) mmHg ABG HCO3 28 H (21-25) mmol/L ABG Total CO2 29 H (19-24) mmol/L ABG O2 Saturation 99.6 H (94-97) % ABG Hematocrit (34.0-46.0) % ABG Sodium (135-146) mmol/L ABG Potassium (3.4-4.5) mmol/L ABG Ionized Calcium (4.5-5.3) mg/dL ABG Glucose (75-99) mg/dL ABG Lactic Acid (0.5-1.6) mmol/L Hemoglobin (11.4-16.0) gm/dL Sodium (137-145) mmol/L BUN (7-17) mg/dL Glucose (74-99) mg/dL POC Glucose (mg/dL) 106 H (75-99) mg/dL Calcium (8.4-10.2) mg/dL Magnesium (1.6-2.3) mg/dL AST (14-36) U/L Alkaline Phosphatase (38-126) U/L Total Protein (6.3-8.2) g/dL Albumin (3.5-5.0) g/dL Arterial Blood Potassium (3.4-4.5) mmol/L Arterial Blood Glucose (75-99) mg/dL Crossmatch 12/25/19 12/25/19 12/25/19 Range/Units 15:12 15:12 16:16 WBC (3.8-10.6) k/uL RBC (3.80-5.40) m/uL Hgb (11.4-16.0) gm/dL Hct (34.0-46.0) % Neutrophils # (1.3-7.7) k/uL Lymphocytes # (1.0-4.8) k/uL PT 12.2 H (9.0-12.0) sec INR 1.2 H (<1.2) ABG pH (7.35-7.45) ABG pCO2 (35-45) mmHg ABG pO2 (83-108) mmHg ABG HCO3 (21-25) mmol/L ABG Total CO2 (19-24) mmol/L ABG O2 Saturation (94-97) % ABG Hematocrit (34.0-46.0) % ABG Sodium (135-146) mmol/L ABG Potassium (3.4-4.5) mmol/L ABG Ionized Calcium (4.5-5.3) mg/dL ABG Glucose (75-99) mg/dL ABG Lactic Acid (0.5-1.6) mmol/L Hemoglobin (11.4-16.0) gm/dL Sodium 135 L (137-145) mmol/L BUN 19 H (7-17) mg/dL Glucose (74-99) mg/dL POC Glucose (mg/dL) 152 H (75-99) mg/dL Calcium 8.3 L (8.4-10.2) mg/dL Magnesium 2.6 H (1.6-2.3) mg/dL AST (14-36) U/L Alkaline Phosphatase 32 L (38-126) U/L Total Protein 4.5 L (6.3-8.2) g/dL Albumin 2.7 L (3.5-5.0) g/dL Arterial Blood Potassium (3.4-4.5) mmol/L Arterial Blood Glucose (75-99) mg/dL Crossmatch 12/25/19 12/25/19 12/25/19 Range/Units 16:57 18:13 18:20 WBC (3.8-10.6) k/uL RBC 3.64 L (3.80-5.40) m/uL Hgb 10.7 L (11.4-16.0) gm/dL Hct 32.3 L (34.0-46.0) % Neutrophils # 9.3 H (1.3-7.7) k/uL Lymphocytes # 0.7 L (1.0-4.8) k/uL PT (9.0-12.0) sec INR (<1.2) ABG pH (7.35-7.45) ABG pCO2 (35-45) mmHg ABG pO2 (83-108) mmHg ABG HCO3 (21-25) mmol/L ABG Total CO2 (19-24) mmol/L ABG O2 Saturation (94-97) % ABG Hematocrit (34.0-46.0) % ABG Sodium (135-146) mmol/L ABG Potassium (3.4-4.5) mmol/L ABG Ionized Calcium (4.5-5.3) mg/dL ABG Glucose (75-99) mg/dL ABG Lactic Acid (0.5-1.6) mmol/L Hemoglobin (11.4-16.0) gm/dL Sodium (137-145) mmol/L BUN (7-17) mg/dL Glucose (74-99) mg/dL POC Glucose (mg/dL) 161 H 151 H (75-99) mg/dL Calcium (8.4-10.2) mg/dL Magnesium (1.6-2.3) mg/dL AST (14-36) U/L Alkaline Phosphatase (38-126) U/L Total Protein (6.3-8.2) g/dL Albumin (3.5-5.0) g/dL Arterial Blood Potassium (3.4-4.5) mmol/L Arterial Blood Glucose (75-99) mg/dL Crossmatch 12/25/19 12/25/19 12/25/19 Range/Units 19:11 19:23 20:09 WBC (3.8-10.6) k/uL RBC (3.80-5.40) m/uL Hgb (11.4-16.0) gm/dL Hct (34.0-46.0) % Neutrophils # (1.3-7.7) k/uL Lymphocytes # (1.0-4.8) k/uL PT (9.0-12.0) sec INR (<1.2) ABG pH (7.35-7.45) ABG pCO2 (35-45) mmHg ABG pO2 (83-108) mmHg ABG HCO3 (21-25) mmol/L ABG Total CO2 25 H (19-24) mmol/L ABG O2 Saturation (94-97) % ABG Hematocrit (34.0-46.0) % ABG Sodium (135-146) mmol/L ABG Potassium (3.4-4.5) mmol/L ABG Ionized Calcium (4.5-5.3) mg/dL ABG Glucose (75-99) mg/dL ABG Lactic Acid (0.5-1.6) mmol/L Hemoglobin (11.4-16.0) gm/dL Sodium (137-145) mmol/L BUN (7-17) mg/dL Glucose (74-99) mg/dL POC Glucose (mg/dL) 155 H 156 H (75-99) mg/dL Calcium (8.4-10.2) mg/dL Magnesium (1.6-2.3) mg/dL AST (14-36) U/L Alkaline Phosphatase (38-126) U/L Total Protein (6.3-8.2) g/dL Albumin (3.5-5.0) g/dL Arterial Blood Potassium (3.4-4.5) mmol/L Arterial Blood Glucose (75-99) mg/dL Crossmatch 12/25/19 12/25/19 12/25/19 Range/Units 21:12 21:50 22:07 WBC (3.8-10.6) k/uL RBC (3.80-5.40) m/uL Hgb (11.4-16.0) gm/dL Hct (34.0-46.0) % Neutrophils # (1.3-7.7) k/uL Lymphocytes # (1.0-4.8) k/uL PT (9.0-12.0) sec INR (<1.2) ABG pH (7.35-7.45) ABG pCO2 (35-45) mmHg ABG pO2 (83-108) mmHg ABG HCO3 26 H (21-25) mmol/L ABG Total CO2 28 H (19-24) mmol/L ABG O2 Saturation 97.1 H (94-97) % ABG Hematocrit (34.0-46.0) % ABG Sodium (135-146) mmol/L ABG Potassium (3.4-4.5) mmol/L ABG Ionized Calcium (4.5-5.3) mg/dL ABG Glucose (75-99) mg/dL ABG Lactic Acid (0.5-1.6) mmol/L Hemoglobin (11.4-16.0) gm/dL Sodium (137-145) mmol/L BUN (7-17) mg/dL Glucose (74-99) mg/dL POC Glucose (mg/dL) 150 H 145 H (75-99) mg/dL Calcium (8.4-10.2) mg/dL Magnesium (1.6-2.3) mg/dL AST (14-36) U/L Alkaline Phosphatase (38-126) U/L Total Protein (6.3-8.2) g/dL Albumin (3.5-5.0) g/dL Arterial Blood Potassium (3.4-4.5) mmol/L Arterial Blood Glucose (75-99) mg/dL Crossmatch 12/25/19 12/25/19 12/25/19 Range/Units 22:20 23:01 23:56 WBC 11.5 H (3.8-10.6) k/uL RBC 3.67 L (3.80-5.40) m/uL Hgb 11.0 L (11.4-16.0) gm/dL Hct 32.8 L (34.0-46.0) % Neutrophils # 10.6 H (1.3-7.7) k/uL Lymphocytes # 0.4 L (1.0-4.8) k/uL PT (9.0-12.0) sec INR (<1.2) ABG pH (7.35-7.45) ABG pCO2 (35-45) mmHg ABG pO2 (83-108) mmHg ABG HCO3 (21-25) mmol/L ABG Total CO2 (19-24) mmol/L ABG O2 Saturation (94-97) % ABG Hematocrit (34.0-46.0) % ABG Sodium (135-146) mmol/L ABG Potassium (3.4-4.5) mmol/L ABG Ionized Calcium (4.5-5.3) mg/dL ABG Glucose (75-99) mg/dL ABG Lactic Acid (0.5-1.6) mmol/L Hemoglobin (11.4-16.0) gm/dL Sodium (137-145) mmol/L BUN (7-17) mg/dL Glucose (74-99) mg/dL POC Glucose (mg/dL) 143 H 141 H (75-99) mg/dL Calcium (8.4-10.2) mg/dL Magnesium (1.6-2.3) mg/dL AST (14-36) U/L Alkaline Phosphatase (38-126) U/L Total Protein (6.3-8.2) g/dL Albumin (3.5-5.0) g/dL Arterial Blood Potassium (3.4-4.5) mmol/L Arterial Blood Glucose (75-99) mg/dL Crossmatch 12/26/19 12/26/19 12/26/19 Range/Units 01:01 02:10 03:08 WBC (3.8-10.6) k/uL RBC (3.80-5.40) m/uL Hgb (11.4-16.0) gm/dL Hct (34.0-46.0) % Neutrophils # (1.3-7.7) k/uL Lymphocytes # (1.0-4.8) k/uL PT (9.0-12.0) sec INR (<1.2) ABG pH (7.35-7.45) ABG pCO2 (35-45) mmHg ABG pO2 (83-108) mmHg ABG HCO3 (21-25) mmol/L ABG Total CO2 (19-24) mmol/L ABG O2 Saturation (94-97) % ABG Hematocrit (34.0-46.0) % ABG Sodium (135-146) mmol/L ABG Potassium (3.4-4.5) mmol/L ABG Ionized Calcium (4.5-5.3) mg/dL ABG Glucose (75-99) mg/dL ABG Lactic Acid (0.5-1.6) mmol/L Hemoglobin (11.4-16.0) gm/dL Sodium (137-145) mmol/L BUN (7-17) mg/dL Glucose (74-99) mg/dL POC Glucose (mg/dL) 126 H 123 H 123 H (75-99) mg/dL Calcium (8.4-10.2) mg/dL Magnesium (1.6-2.3) mg/dL AST (14-36) U/L Alkaline Phosphatase (38-126) U/L Total Protein (6.3-8.2) g/dL Albumin (3.5-5.0) g/dL Arterial Blood Potassium (3.4-4.5) mmol/L Arterial Blood Glucose (75-99) mg/dL Crossmatch 12/26/19 12/26/19 12/26/19 Range/Units 04:22 04:22 04:22 WBC (3.8-10.6) k/uL RBC 3.49 L (3.80-5.40) m/uL Hgb 10.2 L (11.4-16.0) gm/dL Hct 31.0 L (34.0-46.0) % Neutrophils # 8.8 H (1.3-7.7) k/uL Lymphocytes # 0.7 L (1.0-4.8) k/uL PT (9.0-12.0) sec INR (<1.2) ABG pH (7.35-7.45) ABG pCO2 (35-45) mmHg ABG pO2 (83-108) mmHg ABG HCO3 (21-25) mmol/L ABG Total CO2 (19-24) mmol/L ABG O2 Saturation (94-97) % ABG Hematocrit (34.0-46.0) % ABG Sodium (135-146) mmol/L ABG Potassium (3.4-4.5) mmol/L ABG Ionized Calcium (4.5-5.3) mg/dL ABG Glucose (75-99) mg/dL ABG Lactic Acid (0.5-1.6) mmol/L Hemoglobin (11.4-16.0) gm/dL Sodium 134 L (137-145) mmol/L BUN 20 H (7-17) mg/dL Glucose 114 H (74-99) mg/dL POC Glucose (mg/dL) 121 H (75-99) mg/dL Calcium 8.2 L (8.4-10.2) mg/dL Magnesium (1.6-2.3) mg/dL AST 49 H (14-36) U/L Alkaline Phosphatase (38-126) U/L Total Protein 5.0 L (6.3-8.2) g/dL Albumin 3.2 L (3.5-5.0) g/dL Arterial Blood Potassium (3.4-4.5) mmol/L Arterial Blood Glucose (75-99) mg/dL Crossmatch 12/26/19 Range/Units 06:11 WBC (3.8-10.6) k/uL RBC (3.80-5.40) m/uL Hgb (11.4-16.0) gm/dL Hct (34.0-46.0) % Neutrophils # (1.3-7.7) k/uL Lymphocytes # (1.0-4.8) k/uL PT (9.0-12.0) sec INR (<1.2) ABG pH (7.35-7.45) ABG pCO2 (35-45) mmHg ABG pO2 (83-108) mmHg ABG HCO3 (21-25) mmol/L ABG Total CO2 (19-24) mmol/L ABG O2 Saturation (94-97) % ABG Hematocrit (34.0-46.0) % ABG Sodium (135-146) mmol/L ABG Potassium (3.4-4.5) mmol/L ABG Ionized Calcium (4.5-5.3) mg/dL ABG Glucose (75-99) mg/dL ABG Lactic Acid (0.5-1.6) mmol/L Hemoglobin (11.4-16.0) gm/dL Sodium (137-145) mmol/L BUN (7-17) mg/dL Glucose (74-99) mg/dL POC Glucose (mg/dL) 127 H (75-99) mg/dL Calcium (8.4-10.2) mg/dL Magnesium (1.6-2.3) mg/dL AST (14-36) U/L Alkaline Phosphatase (38-126) U/L Total Protein (6.3-8.2) g/dL Albumin (3.5-5.0) g/dL Arterial Blood Potassium (3.4-4.5) mmol/L Arterial Blood Glucose (75-99) mg/dL Crossmatch Assessment and Plan Plan: 1 severe aortic stenosis post aortic valve replacement. The patient is postop day #1. The patient arrived to the intensive care unit intubated on a mechanical ventilator. 2 Post thoracotomy, extubated without any major difficulty currently on previous of oxygen by nasal cannula 3 hypertension currently off Cleviprex for blood pressure control. Hemodynamic parameters are all stable 4 Diabetes mellitus 5 hyperlipidemia 6 hypertension Plan Continue using incentive spirometer. Bronchodilators [id number] with albuterol Monitor the hemodynamic parameters Monitor cardiac output Monitor the output from the chest tube Off Cleviprex and she is on metoprolol blood pressure control We'll give 250 mL of IV albumin for oligoria Initiate insulin drip for blood sugar control, currently at 1.5 units and the patient be encouraged to increase oral intake. We'll continue to follow
[2019-12-26] MEDS: ASPIRIN 325 MG TAB PO SCH (08:44)
[2019-12-26] MEDS: METOPROLOL TARTRATE 25 MG TAB PO SCH ×2 (08:44→21:22)
[2019-12-26] MEDS: ATORVASTATIN 40 MG TAB PO SCH (08:44)
[2019-12-26] MEDS: PANTOPRAZOLE 40 MG TABLET PO SCH (08:44)
[2019-12-26 08:50] LABS: Glucose,Whole Blood 129 mg/dL (75-99)
[2019-12-26] MEDS ORDERED: METOPROLOL TARTRATE 12.5 MG TAB PO SCH (09:00)
[2019-12-26] MEDS ORDERED: PANTOPRAZOLE 40 MG/10 ML VIAL IVP SCH (09:00)
[2019-12-26] MEDS ORDERED: MAGNESIUM HYDROXIDE 2,400 MG/10 ML CUP PO PRN (09:00)
[2019-12-26] MEDS ORDERED: BISACODYL 10 MG SUPP RECTAL PRN (09:00)
[2019-12-26] MEDS: ALBUMIN HUMAN 5% 250 ML in EMPTY BAG 1 BAG IVPB PRN ×3 (09:24→13:10)
[2019-12-26 10:04] VITALS: BMI 38.9
--- NOTE | 2019-12-26 10:14 | XR ---
EXAMINATION TYPE: XR chest 1V portable DATE OF EXAM: 12/26/2019 COMPARISON: Prior chest x-ray 12/25/2019 HISTORY: Postop cardiac surgery, extubated, chest tube TECHNIQUE: Single frontal view of the chest is obtained. FINDINGS: Endotracheal tube and NG tube have been removed. Patient is post median sternotomy as note d on previous exam. Central venous catheter shows the distal tip over the right pulmonary artery, rig ht-sided chest tube, median sternal drain remain in place. No evident pneumothorax or sizable effusio n. Lung volumes are low, patient is rotated. Heart size is stable. Stable lung changes. IMPRESSION: There is likely subsegmental basilar atelectatic change. Postop changes. Cardiomegaly. I nterval extubation.
[2019-12-26 10:51] LABS: Glucose,Whole Blood 120 mg/dL (75-99)
[2019-12-26] MEDS: LACTATED RINGERS 1,000 ML IV SCH (12:25)
[2019-12-26 13:08] LABS: Glucose,Whole Blood 167 mg/dL (75-99)
--- NOTE | 2019-12-26 13:40 | P.PN ---
Subjective Progress Note Date: 12/26/19 Principal diagnosis: Symptomatic severe aortic valve stenosis. Past medical history of hypertension, hyperlipidemia, diabetes mellitus type 2 and gastroesophageal reflux disease. POD #1 aortic valve replacement with a #21 mm Ross Inspiris bioprosthetic aortic valve, clip ligation of the left atrial appendage with a 35 mm Atriclip and an intraoperative transesophageal echocardiogram. Acute postoperative blood loss anemia, an expected outcome secondary to hemodilution and cardiopulmonary bypass. The patient is sitting up to the bedside chair in the intensive care unit. She is in no acute distress. She is complaining of surgical type pain to her chest tube insertion sites rating her pain 4 out of 10 on the pain scale and currently denies any complaints of shortness of breath. She remains hemodynamically stable and is currently on no inotropic or pressor support, current hemodynamics show a CVP of 7 mmHg, PA pressures 24/6, cardiac output 4.2 and cardiac index 2.3. She was successfully extubated last evening at 10:17 PM and is currently on 2 L nasal cannula with oxygen saturations 98%. She is achieving 750 mL on her incentive spirometry with encouragement. She has a mediastinal and right pleural chest tube in place to low continuous wall suction -20 cm H2O. No air leak is present. Draining thin serosanguineous drainage with 400 mL output since surgery and 195 mL output in the last 8 hours. Bedside telemetry showing normal sinus rhythm heart rate 79 BPM. She remains afebrile. Objective - Vital Signs Vital signs: Vital Signs Temp 98.8 F 12/26/19 04:00 Pulse 79 12/26/19 08:21 Resp 10 L 12/26/19 07:00 BP 101/60 12/26/19 07:00 Pulse Ox 97 12/26/19 07:00 Intake & Output 12/25/19 12/26/19 12/26/19 18:59 06:59 18:59 Intake Total 203.432 4515.165 89 Output Total 1523 1097 12 Balance -888.612 -11.835 77 Weight 86 kg 93.4 kg Intake: IV 271 535 89 Co/CI 140 240 30 Lactated Ringers 1,000 ml 250 50 @ 50 mls/hr IV .Q20H [facility] Rx#:[id number] Potassium 20 meq 100 pressure bags 45 9 Intake, IV Titration 363.388 550.165 Amount ACETAMINOPHEN IV (For NPO 100 100 ) 1,000 mg In Empty Bag 1 bag @ 400 mls/hr IVPB Q6H [facility] Rx#:[id number] Clevidipine Butyrate 25 9.5 33.466 mg In Empty Bag 1 bag @ 1 MG/HR 2 mls/hr IV .Q24H [facility]NA Rx#:[id number] Insulin Regular 100 unit 3.888 16.699 In Sodium Chloride 0.9% 100 ml @ Per Protocol IV .Q0M [facility]NA Rx#:[id number] Lactated Ringers 1,000 ml 200 350 @ 50 mls/hr IV .Q20H [facility] Rx#:[id number] ceFAZolin 2 gm In Sodium 50 50 Chloride 0.9% 50 ml @ 100 mls/hr IVPB Q8HR [facility] Rx# :[id number] Output: Chest Tube Drainage 120 270 10 Chest Tube Right Pleural/ 120 270 10 Mediastinal Urine 903 827 2 Estimated Blood Loss 500 Other: Voiding Method Indwelling Catheter Indwelling Catheter ABP, PAP, CO, CI - Last Documented Arterial Blood Pressure 123/48 Pulmonary Artery Pressure 31/8 Cardiac Output 4.2 Cardiac Index 2.3 - Constitutional General appearance: Present: cooperative, no acute distress, obese - Respiratory Details: Lung sounds are essentially clear throughout, diminished bilateral bases. Respirations are symmetrical and nonlabored. Oxygen saturation 98% on 2 L nasal cannula. Achieving 750 mL on her incentive spirometry. Mediastinal and right p leural chest tubes remain in place to low continuous wall suction -20 cm H2O. No air leak is present. Draining thin serosanguineous drainage. - Cardiovascular Details: Regular rhythm and rate. S1 and S2 present, negative for S3, gallop or murmur. Sternum is stable. Heart hugger and surgical support bra are in place. Atrial and ventricular epicardial pacemaker wires in place and connected to bedside pacemaker generator with a VVI mode of 50. Bedside telemetry showing normal sinus rhythm heart rate 79. Right IJ Magnolia-Adrian catheter in place. Right radial arterial line in place. Knee-high BRITNEY hose and sequential compression devices in place to bilateral lower extremity. No edema present. - Gastrointestinal Gastrointestinal Comment(s): Abdomen is soft, nontender and nondistended. Hypoactive bowel sounds present all 4 abdominal quadrants. No guarding or rigidity. No organomegaly appreciated. - Genitourinary Genitourinary Comment(s): Ivy catheter for accurate I&O. Draining clear yellow urine. 400 mL output in the last 8 hours. - Integumentary Integumentary Comment(s): Skin is warm and dry. No clubbing or cyanosis is present. Midline sternal incision is clean, dry and approximated. Dressing is clean, dry and intact. No drainage or redness is present. - Neurologic Neurologic: Present: CNII-XII intact - Musculoskeletal Musculoskeletal: Present: gait normal, generalized weakness, strength equal bilaterally - Psychiatric Psychiatric: Present: A&O x's 3, appropriate affect, intact judgment & insight - Allied health notes Allied health notes reviewed: nursing - Labs CBC & Chem 7: 12/26/19 04:22 12/26/19 04:22 Labs: Abnormal Lab Results - Last 24 Hours (Table) 12/23/19 12/25/19 12/25/19 Range/Units 10:10 10:45 11:29 WBC (3.8-10.6) k/uL RBC (3.80-5.40) m/uL Hgb (11.4-16.0) gm/dL Hct (34.0-46.0) % Neutrophils # (1.3-7.7) k/uL Lymphocytes # (1.0-4.8) k/uL PT (9.0-12.0) sec INR (<1.2) ABG pH 7.47 H (7.35-7.45) ABG pCO2 (35-45) mmHg ABG pO2 350 H 209 H (83-108) mmHg ABG HCO3 28 H 26 H (21-25) mmol/L ABG Total CO2 29 H 28 H (19-24) mmol/L ABG O2 Saturation 99.8 H 99.7 H (94-97) % ABG Hematocrit 31 L (34.0-46.0) % ABG Sodium (135-146) mmol/L ABG Potassium (3.4-4.5) mmol/L ABG Ionized Calcium (4.5-5.3) mg/dL ABG Glucose 116 H 121 H (75-99) mg/dL ABG Lactic Acid 2.5 H* (0.5-1.6) mmol/L Hemoglobin 10.0 L (11.4-16.0) gm/dL Sodium (137-145) mmol/L BUN (7-17) mg/dL Glucose (74-99) mg/dL POC Glucose (mg/dL) (75-99) mg/dL Calcium (8.4-10.2) mg/dL Magnesium (1.6-2.3) mg/dL AST (14-36) U/L Alkaline Phosphatase (38-126) U/L Total Protein (6.3-8.2) g/dL Albumin (3.5-5.0) g/dL Arterial Blood Potassium (3.4-4.5) mmol/L Arterial Blood Glucose 116 H 121 H (75-99) mg/dL Crossmatch See Detail 12/25/19 12/25/19 12/25/19 Range/Units 12:00 12:32 14:02 WBC (3.8-10.6) k/uL RBC (3.80-5.40) m/uL Hgb (11.4-16.0) gm/dL Hct (34.0-46.0) % Neutrophils # (1.3-7.7) k/uL Lymphocytes # (1.0-4.8) k/uL PT (9.0-12.0) sec INR (<1.2) ABG pH (7.35-7.45) ABG pCO2 46 H (35-45) mmHg ABG pO2 352 H 318 H 201 H (83-108) mmHg ABG HCO3 26 H 26 H (21-25) mmol/L ABG Total CO2 28 H 26 H 27 H (19-24) mmol/L ABG O2 Saturation 99.8 H 100.0 H 99.6 H (94-97) % ABG Hematocrit 24 L 24 L 31 L (34.0-46.0) % ABG Sodium 132 L 134 L (135-146) mmol/L ABG Potassium 4.8 H (3.4-4.5) mmol/L ABG Ionized Calcium 4.2 L 4.2 L (4.5-5.3) mg/dL ABG Glucose 198 H 205 H 113 H (75-99) mg/dL ABG Lactic Acid 1.9 H 2.2 H* (0.5-1.6) mmol/L Hemoglobin 7.8 L 7.9 L 10.0 L (11.4-16.0) gm/dL Sodium (137-145) mmol/L BUN (7-17) mg/dL Glucose (74-99) mg/dL POC Glucose (mg/dL) (75-99) mg/dL Calcium (8.4-10.2) mg/dL Magnesium (1.6-2.3) mg/dL AST (14-36) U/L Alkaline Phosphatase (38-126) U/L Total Protein (6.3-8.2) g/dL Albumin (3.5-5.0) g/dL Arterial Blood Potassium 4.8 H (3.4-4.5) mmol/L Arterial Blood Glucose 198 H 205 H 113 H (75-99) mg/dL Crossmatch 12/25/19 12/25/19 12/25/19 Range/Units 14:51 15:07 15:12 WBC (3.8-10.6) k/uL RBC 3.17 L (3.80-5.40) m/uL Hgb 9.5 L D (11.4-16.0) gm/dL Hct 28.1 L (34.0-46.0) % Neutrophils # (1.3-7.7) k/uL Lymphocytes # (1.0-4.8) k/uL PT (9.0-12.0) sec INR (<1.2) ABG pH 7.32 L (7.35-7.45) ABG pCO2 53 H (35-45) mmHg ABG pO2 258 H (83-108) mmHg ABG HCO3 28 H (21-25) mmol/L ABG Total CO2 29 H (19-24) mmol/L ABG O2 Saturation 99.6 H (94-97) % ABG Hematocrit (34.0-46.0) % ABG Sodium (135-146) mmol/L ABG Potassium (3.4-4.5) mmol/L ABG Ionized Calcium (4.5-5.3) mg/dL ABG Glucose (75-99) mg/dL ABG Lactic Acid (0.5-1.6) mmol/L Hemoglobin (11.4-16.0) gm/dL Sodium (137-145) mmol/L BUN (7-17) mg/dL Glucose (74-99) mg/dL POC Glucose (mg/dL) 106 H (75-99) mg/dL Calcium (8.4-10.2) mg/dL Magnesium (1.6-2.3) mg/dL AST (14-36) U/L Alkaline Phosphatase (38-126) U/L Total Protein (6.3-8.2) g/dL Albumin (3.5-5.0) g/dL Arterial Blood Potassium (3.4-4.5) mmol/L Arterial Blood Glucose (75-99) mg/dL Crossmatch 12/25/19 12/25/19 12/25/19 Range/Units 15:12 15:12 16:16 WBC (3.8-10.6) k/uL RBC (3.80-5.40) m/uL Hgb (11.4-16.0) gm/dL Hct (34.0-46.0) % Neutrophils # (1.3-7.7) k/uL Lymphocytes # (1.0-4.8) k/uL PT 12.2 H (9.0-12.0) sec INR 1.2 H (<1.2) ABG pH (7.35-7.45) ABG pCO2 (35-45) mmHg ABG pO2 (83-108) mmHg ABG HCO3 (21-25) mmol/L ABG Total CO2 (19-24) mmol/L ABG O2 Saturation (94-97) % ABG Hematocrit (34.0-46.0) % ABG Sodium (135-146) mmol/L ABG Potassium (3.4-4.5) mmol/L ABG Ionized Calcium (4.5-5.3) mg/dL ABG Glucose (75-99) mg/dL ABG Lactic Acid (0.5-1.6) mmol/L Hemoglobin (11.4-16.0) gm/dL Sodium 135 L (137-145) mmol/L BUN 19 H (7-17) mg/dL Glucose (74-99) mg/dL POC Glucose (mg/dL) 152 H (75-99) mg/dL Calcium 8.3 L (8.4-10.2) mg/dL Magnesium 2.6 H (1.6-2.3) mg/dL AST (14-36) U/L Alkaline Phosphatase 32 L (38-126) U/L Total Protein 4.5 L (6.3-8.2) g/dL Albumin 2.7 L (3.5-5.0) g/dL Arterial Blood Potassium (3.4-4.5) mmol/L Arterial Blood Glucose (75-99) mg/dL Crossmatch 12/25/19 12/25/19 12/25/19 Range/Units 16:57 18:13 18:20 WBC (3.8-10.6) k/uL RBC 3.64 L (3.80-5.40) m/uL Hgb 10.7 L (11.4-16.0) gm/dL Hct 32.3 L (34.0-46.0) % Neutrophils # 9.3 H (1.3-7.7) k/uL Lymphocytes # 0.7 L (1.0-4.8) k/uL PT (9.0-12.0) sec INR (<1.2) ABG pH (7.35-7.45) ABG pCO2 (35-45) mmHg ABG pO2 (83-108) mmHg ABG HCO3 (21-25) mmol/L ABG Total CO2 (19-24) mmol/L ABG O2 Saturation (94-97) % ABG Hematocrit (34.0-46.0) % ABG Sodium (135-146) mmol/L ABG Potassium (3.4-4.5) mmol/L ABG Ionized Calcium (4.5-5.3) mg/dL ABG Glucose (75-99) mg/dL ABG Lactic Acid (0.5-1.6) mmol/L Hemoglobin (11.4-16.0) gm/dL Sodium (137-145) mmol/L BUN (7-17) mg/dL Glucose (74-99) mg/dL POC Glucose (mg/dL) 161 H 151 H (75-99) mg/dL Calcium (8.4-10.2) mg/dL Magnesium (1.6-2.3) mg/dL AST (14-36) U/L Alkaline Phosphatase (38-126) U/L Total Protein (6.3-8.2) g/dL Albumin (3.5-5.0) g/dL Arterial Blood Potassium (3.4-4.5) mmol/L Arterial Blood Glucose (75-99) mg/dL Crossmatch 12/25/19 12/25/19 12/25/19 Range/Units 19:11 19:23 20:09 WBC (3.8-10.6) k/uL RBC (3.80-5.40) m/uL Hgb (11.4-16.0) gm/dL Hct (34.0-46.0) % Neutrophils # (1.3-7.7) k/uL Lymphocytes # (1.0-4.8) k/uL PT (9.0-12.0) sec INR (<1.2) ABG pH (7.35-7.45) ABG pCO2 (35-45) mmHg ABG pO2 (83-108) mmHg ABG HCO3 (21-25) mmol/L ABG Total CO2 25 H (19-24) mmol/L ABG O2 Saturation (94-97) % ABG Hematocrit (34.0-46.0) % ABG Sodium (135-146) mmol/L ABG Potassium (3.4-4.5) mmol/L ABG Ionized Calcium (4.5-5.3) mg/dL ABG Glucose (75-99) mg/dL ABG Lactic Acid (0.5-1.6) mmol/L Hemoglobin (11.4-16.0) gm/dL Sodium (137-145) mmol/L BUN (7-17) mg/dL Glucose (74-99) mg/dL POC Glucose (mg/dL) 155 H 156 H (75-99) mg/dL Calcium (8.4-10.2) mg/dL Magnesium (1.6-2.3) mg/dL AST (14-36) U/L Alkaline Phosphatase (38-126) U/L Total Protein (6.3-8.2) g/dL Albumin (3.5-5.0) g/dL Arterial Blood Potassium (3.4-4.5) mmol/L Arterial Blood Glucose (75-99) mg/dL Crossmatch 12/25/19 12/25/19 12/25/19 Range/Units 21:12 21:50 22:07 WBC (3.8-10.6) k/uL RBC (3.80-5.40) m/uL Hgb (11.4-16.0) gm/dL Hct (34.0-46.0) % Neutrophils # (1.3-7.7) k/uL Lymphocytes # (1.0-4.8) k/uL PT (9.0-12.0) sec INR (<1.2) ABG pH (7.35-7.45) ABG pCO2 (35-45) mmHg ABG pO2 (83-108) mmHg ABG HCO3 26 H (21-25) mmol/L ABG Total CO2 28 H (19-24) mmol/L ABG O2 Saturation 97.1 H (94-97) % ABG Hematocrit (34.0-46.0) % ABG Sodium (135-146) mmol/L ABG Potassium (3.4-4.5) mmol/L ABG Ionized Calcium (4.5-5.3) mg/dL ABG Glucose (75-99) mg/dL ABG Lactic Acid (0.5-1.6) mmol/L Hemoglobin (11.4-16.0) gm/dL Sodium (137-145) mmol/L BUN (7-17) mg/dL Glucose (74-99) mg/dL POC Glucose (mg/dL) 150 H 145 H (75-99) mg/dL Calcium (8.4-10.2) mg/dL Magnesium (1.6-2.3) mg/dL AST (14-36) U/L Alkaline Phosphatase (38-126) U/L Total Protein (6.3-8.2) g/dL Albumin (3.5-5.0) g/dL Arterial Blood Potassium (3.4-4.5) mmol/L Arterial Blood Glucose (75-99) mg/dL Crossmatch 12/25/19 12/25/19 12/25/19 Range/Units 22:20 23:01 23:56 WBC 11.5 H (3.8-10.6) k/uL RBC 3.67 L (3.80-5.40) m/uL Hgb 11.0 L (11.4-16.0) gm/dL Hct 32.8 L (34.0-46.0) % Neutrophils # 10.6 H (1.3-7.7) k/uL Lymphocytes # 0.4 L (1.0-4.8) k/uL PT (9.0-12.0) sec INR (<1.2) ABG pH (7.35-7.45) ABG pCO2 (35-45) mmHg ABG pO2 (83-108) mmHg ABG HCO3 (21-25) mmol/L ABG Total CO2 (19-24) mmol/L ABG O2 Saturation (94-97) % ABG Hematocrit (34.0-46.0) % ABG Sodium (135-146) mmol/L ABG Potassium (3.4-4.5) mmol/L ABG Ionized Calcium (4.5-5.3) mg/dL ABG Glucose (75-99) mg/dL ABG Lactic Acid (0.5-1.6) mmol/L Hemoglobin (11.4-16.0) gm/dL Sodium (137-145) mmol/L BUN (7-17) mg/dL Glucose (74-99) mg/dL POC Glucose (mg/dL) 143 H 141 H (75-99) mg/dL Calcium (8.4-10.2) mg/dL Magnesium (1.6-2.3) mg/dL AST (14-36) U/L Alkaline Phosphatase (38-126) U/L Total Protein (6.3-8.2) g/dL Albumin (3.5-5.0) g/dL Arterial Blood Potassium (3.4-4.5) mmol/L Arterial Blood Glucose (75-99) mg/dL Crossmatch 12/26/19 12/26/19 12/26/19 Range/Units 01:01 02:10 03:08 WBC (3.8-10.6) k/uL RBC (3.80-5.40) m/uL Hgb (11.4-16.0) gm/dL Hct (34.0-46.0) % Neutrophils # (1.3-7.7) k/uL Lymphocytes # (1.0-4.8) k/uL PT (9.0-12.0) sec INR (<1.2) ABG pH (7.35-7.45) ABG pCO2 (35-45) mmHg ABG pO2 (83-108) mmHg ABG HCO3 (21-25) mmol/L ABG Total CO2 (19-24) mmol/L ABG O2 Saturation (94-97) % ABG Hematocrit (34.0-46.0) % ABG Sodium (135-146) mmol/L ABG Potassium (3.4-4.5) mmol/L ABG Ionized Calcium (4.5-5.3) mg/dL ABG Glucose (75-99) mg/dL ABG Lactic Acid (0.5-1.6) mmol/L Hemoglobin (11.4-16.0) gm/dL Sodium (137-145) mmol/L BUN (7-17) mg/dL Glucose (74-99) mg/dL POC Glucose (mg/dL) 126 H 123 H 123 H (75-99) mg/dL Calcium (8.4-10.2) mg/dL Magnesium (1.6-2.3) mg/dL AST (14-36) U/L Alkaline Phosphatase (38-126) U/L Total Protein (6.3-8.2) g/dL Albumin (3.5-5.0) g/dL Arterial Blood Potassium (3.4-4.5) mmol/L Arterial Blood Glucose (75-99) mg/dL Crossmatch 12/26/19 12/26/19 12/26/19 Range/Units 04:22 04:22 04:22 WBC (3.8-10.6) k/uL RBC 3.49 L (3.80-5.40) m/uL Hgb 10.2 L (11.4-16.0) gm/dL Hct 31.0 L (34.0-46.0) % Neutrophils # 8.8 H (1.3-7.7) k/uL Lymphocytes # 0.7 L (1.0-4.8) k/uL PT (9.0-12.0) sec INR (<1.2) ABG pH (7.35-7.45) ABG pCO2 (35-45) mmHg ABG pO2 (83-108) mmHg ABG HCO3 (21-25) mmol/L ABG Total CO2 (19-24) mmol/L ABG O2 Saturation (94-97) % ABG Hematocrit (34.0-46.0) % ABG Sodium (135-146) mmol/L ABG Potassium (3.4-4.5) mmol/L ABG Ionized Calcium (4.5-5.3) mg/dL ABG Glucose (75-99) mg/dL ABG Lactic Acid (0.5-1.6) mmol/L Hemoglobin (11.4-16.0) gm/dL Sodium 134 L (137-145) mmol/L BUN 20 H (7-17) mg/dL Glucose 114 H (74-99) mg/dL POC Glucose (mg/dL) 121 H (75-99) mg/dL Calcium 8.2 L (8.4-10.2) mg/dL Magnesium (1.6-2.3) mg/dL AST 49 H (14-36) U/L Alkaline Phosphatase (38-126) U/L Total Protein 5.0 L (6.3-8.2) g/dL Albumin 3.2 L (3.5-5.0) g/dL Arterial Blood Potassium (3.4-4.5) mmol/L Arterial Blood Glucose (75-99) mg/dL Crossmatch 12/26/19 Range/Units 06:11 WBC (3.8-10.6) k/uL RBC (3.80-5.40) m/uL Hgb (11.4-16.0) gm/dL Hct (34.0-46.0) % Neutrophils # (1.3-7.7) k/uL Lymphocytes # (1.0-4.8) k/uL PT (9.0-12.0) sec INR (<1.2) ABG pH (7.35-7.45) ABG pCO2 (35-45) mmHg ABG pO2 (83-108) mmHg ABG HCO3 (21-25) mmol/L ABG Total CO2 (19-24) mmol/L ABG O2 Saturation (94-97) % ABG Hematocrit (34.0-46.0) % ABG Sodium (135-146) mmol/L ABG Potassium (3.4-4.5) mmol/L ABG Ionized Calcium (4.5-5.3) mg/dL ABG Glucose (75-99) mg/dL ABG Lactic Acid (0.5-1.6) mmol/L Hemoglobin (11.4-16.0) gm/dL Sodium (137-145) mmol/L BUN (7-17) mg/dL Glucose (74-99) mg/dL POC Glucose (mg/dL) 127 H (75-99) mg/dL Calcium (8.4-10.2) mg/dL Magnesium (1.6-2.3) mg/dL AST (14-36) U/L Alkaline Phosphatase (38-126) U/L Total Protein (6.3-8.2) g/dL Albumin (3.5-5.0) g/dL Arterial Blood Potassium (3.4-4.5) mmol/L Arterial Blood Glucose (75-99) mg/dL Crossmatch - Imaging and Cardiology Chest x-ray: image reviewed Assessment and Plan Assessment: 1. Symptomatic severe aortic valve stenosis, status post aortic valve replacement 2. History of hypertension 3. History of hyperlipidemia 4. Diabetes mellitus type 2 with a preoperative hemoglobin A1c of 6.2% 5. Gastroesophageal reflux disease Plan: 1. Continue to maximize medical therapy with aspirin, statin and beta zakia. Increase metoprolol tartrate 25 mg by mouth twice a day. 2. Encourage use of her incentive spirometry every hour while awake. 3. Wean oxygen as tolerated. Bronchodilator management per pulmonary/critical care medicine. 4. Removal of Magnolia-Adrian catheter, keep right IJ Cordis in place to continue CVP monitoring. 5. Keep mediastinal and right pleural chest tubes, Ivy catheter and right radial arterial line in place. 6. Ground and epicardial pacemaker wires. 7. Continue GI and DVT prophylaxis. 8. Medical/diabetes management and other comorbidities per primary care service. 9. Give albumin 5% 250 mL 1 now as her urine output for the last 2 hours has been in 10 mL. 10. Increase activity as tolerated. Physical/occupational therapy and cardiac rehabilitation is following. 11. More recommendations to follow based on patient's clinical course. Time with Patient: Greater than 30
[2019-12-26 15:56] LABS: Glucose,Whole Blood 123 mg/dL (75-99)
[2019-12-26 17:09] LABS: Glucose,Whole Blood 122 mg/dL (75-99)
[2019-12-26] MEDS ORDERED: FUROSEMIDE 10 MG/ML 4 ML VIAL IV STA (18:36)
[2019-12-26 18:48] LABS: Glucose,Whole Blood 185 mg/dL (75-99)
[2019-12-26 20:25] LABS: Glucose,Whole Blood 126 mg/dL (75-99)
[2019-12-26 21:03] LABS: Glucose,Whole Blood 114 mg/dL (75-99)
[2019-12-26] MEDS: SENNOSIDES-DOCUSATE SODIUM 1 EACH TAB PO SCH (21:22)
[2019-12-26 21:56] LABS: Glucose,Whole Blood 126 mg/dL (75-99)
--- NOTE | 2019-12-26 22:27 | CONS ---
CONSULTATION DATE OF SERVICE: 12/26/2019 The patient is a 69-year-old white female, . She is in the ICU 252 bed 1. She is FULL CODE. Her height is 5 feet 1 inch, weight 93.4 kg and BSA 1.91 m2. BMI 38.9 kg/m2. ALLERGIES: UNKNOWN. The patient was found by echocardiogram as well as cardiac catheterization that she has aortic valve stenosis that was tight enough and she admitted to the hospital under the care of Dr. Gómez Benjamin, cardiovascular surgeon, for bioprosthetic aortic valve. Her ejection fraction was 60% and aortic stenosis with mean gradient 21.85 mmHg and the peak was 32.19 mmHg and FARZANEH equal to 0.7 cm2. She had mild regurgitation of the aortic valve and she has also mild mitral regurgitation, normal tricuspid and no PFO. No atrial dilatation and no atrial PFO. Aortic dissection no and aortic calcification is moderate. The patient was admitted, but prior to the admission she had a KESHAV and they did the valve replacement, bioprosthetic valve, and postoperatively found that the FARZANEH was equal to 1.7 cm2. No paravalvular leak and no aortic regurgitation. Well-seated, non-rocking valve. The patient had the surgery on 12/25/2019 and today medical consult was obtained as being her physician. She had a chest x-ray yesterday prior to the procedure and there was indication of some segmental basilar atelectasis and cardiomegaly. Which was done today on December 26, 2019. The patient was seen by Dr. Fuller, automotive welder, who is indicating that patient has history of diabetes mellitus, hyperlipidemia, GERD disease, hypertension. She has a history of tubal ligation and a past history of colonoscopy and EGD. She has history of severe aortic stenosis based on recent KESHAV. FAMILY HISTORY: Cancer in her sister. Brother had cancer and CVA, TIA. Father cancer with multiple myeloma. CURRENT MEDICATION: She has been on Lipitor 40 mg at bedtime, lisinopril 10 mg daily, multivitamin 1 tablet daily, omeprazole 40 mg in the morning. She is on triamterene/hydrochlorothiazide 37.5/25 daily. She is on multivitamin PreserVision twice a day and amlodipine 2.5 mg daily and she is also on Bactroban ointment twice a day as well as vitamin B12 1000 mcg p.o. daily. PHYSICAL EXAMINATION: The patient is conscious, alert, oriented. She has multiple lines, status post cardiac and thoracic surgery. Her vital signs indicate temperature 99 F core as well as heart rate 65 per minute and regular sinus rhythm, respiratory rate 20. Her blood pressure was 89/57 and subsequently improved to 113/58. She has 3 L nasal cannula and central venous pressure is 15. Oxygen saturation 97, as mentioned, on 3 L. Pulmonary pressure was 34/13 and 38/9. LABS: Labs today indicate white count 10.1 with hemoglobin 10.2 and hematocrit 31.0, platelet count 177. Sodium 134, potassium 4.1, chloride 102, carbon dioxide 26. BUN of 20, creatinine 0.56 with EGFR more than 90. Her blood sugar has been well controlled. The blood sugar was 114. The POC glucose was average, 127 to 120. Her calcium is 8.2, and ionized calcium was normal at 4.7. Magnesium 2.1 and total bilirubin is 0.5. Her AST 49, minimally elevated, and ALT 17 and alkaline phosphatase 49, normal. Her total protein is 5 and albumin is 3.2. On examination, patient is conscious, alert, oriented. She is able to communicate. She had swollen lips with the anesthesia and procedure. Otherwise, the lungs are aerated and the heart was regular sinus and she had multiple devices post surgical thoracotomy. The abdomen is soft, positive bowel sounds. Extremities with no edema. ASSESSMENT: 1. Status post surgical repair and placement of the aortic valve for aortic valve stenosis. 2. Underlying diabetes mellitus, type 2. 3. Underlying history of hypertension. 4. History of inhalation therapy. She is also on amiodarone for stability of the heart. Currently the patient is under the care of Cardiothoracic and Cardiology. We will be following the patient until patient is out of the ICU. The patient is currently stable. MMODL / IJN: [id number] /
[2019-12-26 22:59] LABS: Glucose,Whole Blood 151 mg/dL (75-99)
[2019-12-27 00:17] LABS: Glucose,Whole Blood 103 mg/dL (75-99)
[2019-12-27] MEDS: ALBUMIN HUMAN 5% 250 ML in EMPTY BAG 1 BAG IVPB PRN (00:33)
[2019-12-27 01:05] LABS: Glucose,Whole Blood 147 mg/dL (75-99)
[2019-12-27 02:12] LABS: Glucose,Whole Blood 131 mg/dL (75-99)
[2019-12-27 03:09] LABS: Glucose,Whole Blood 113 mg/dL (75-99)
[2019-12-27 04:07] LABS: Glucose,Whole Blood 138 mg/dL (75-99)
[2019-12-27 04:27] LABS: Basophils % (A) 0 %; Eosinophils # (A) 0.1 k/uL (0-0.7); Eosinophils % (A) 1 %; HCT 27.2 % (34.0-46.0); Lymphocytes # (A) 1.2 k/uL (1.0-4.8); Lymphocytes % (A) 14 %; MCH 28.9 pg (25.0-35.0); MCHC 31.9 g/dL (31.0-37.0); MCV 90.4 fL (80.0-100.0); Mean Platelet Volume 6.8; Monocytes # (A) 0.6 k/uL (0-1.0); Monocytes % (A) 6 %; Neutrophils % (A) 78 %; Platelet Count 143 k/uL (150-450); RBC 3.01 m/uL (3.80-5.40); RDW 13.5 % (11.5-15.5)
[2019-12-27 04:39] LABS: Ionized Calcium 4.7 mg/dL (4.5-5.3)
[2019-12-27 04:44] LABS: HGB 8.7 gm/dL (11.4-16.0)
[2019-12-27 04:47] LABS: ALT 21 U/L (4-34); AST 48 U/L (14-36); African American GFR (CKD) >90 (>60 ml/min/1.73 sqM); Albumin 3.4 g/dL (3.5-5.0); Alkaline Phosphatase 73 U/L (38-126); Anion Gap 5 mmol/L; Blood Urea Nitrogen 26 mg/dL (7-17); Calcium 8.2 mg/dL (8.4-10.2); Carbon Dioxide 29 mmol/L (22-30); Chloride 99 mmol/L (98-107); Glucose 126 mg/dL (74-99); Non-African American GFR(CKD) 82 (>60 ml/min/1.73 sqM); Potassium 3.8 mmol/L (3.5-5.1); Sodium 133 mmol/L (137-145); Total Bilirubin 0.6 mg/dL (0.2-1.3); Total Protein 5.3 g/dL (6.3-8.2)
[2019-12-27] MEDS ORDERED: POTASSIUM CHLORIDE 20 MEQ in WATER FOR INJECTION 1 100ML.BAG IVPB STA (04:52)
[2019-12-27] MEDS: KETOROLAC 30 MG/ML 1 ML VIAL IVP SCH ×4 (05:00→23:17)
[2019-12-27 05:14] LABS: Glucose,Whole Blood 128 mg/dL (75-99)
[2019-12-27 06:00] LABS: Glucose,Whole Blood 136 mg/dL (75-99)
[2019-12-27] MEDS: PANTOPRAZOLE 40 MG TABLET PO SCH (06:39)
[2019-12-27 07:02] LABS: Glucose,Whole Blood 132 mg/dL (75-99)
--- NOTE | 2019-12-27 07:59 | XR ---
EXAMINATION TYPE: XR chest 1V portable DATE OF EXAM: 12/27/2019 COMPARISON: Prior chest x-ray 12/26/2019 HISTORY: Postop cardiac surgery TECHNIQUE: Single frontal view of the chest is obtained. FINDINGS: There is been interval removal of the central venous catheter, central venous sheath remai ns in place, median sternal drain, right-sided chest tube again noted. Patient is post median sternot oanh, cardiac valve replacement, atrial appendage clipping placement. No evident pneumothorax. Lung vo lumes are low. Heart size is enlarged. There are overlying artifacts. Central atelectatic changes are thought to persist. IMPRESSION: Expiratory exam. Interval line removal. Probable atelectatic changes.
[2019-12-27] MEDS ORDERED: POTASSIUM CHLORIDE ER 20 MEQ TAB.ER PO SCH (08:00)
[2019-12-27 08:02] LABS: Glucose,Whole Blood 201 mg/dL (75-99)
[2019-12-27] MEDS: IPRATROPIUM-ALBUTEROL 3 ML NEB INHALATION SCH ×4 (08:05→19:48)
[2019-12-27] MEDS ORDERED: FUROSEMIDE 10 MG/ML 4 ML VIAL IV STA (08:10)
--- NOTE | 2019-12-27 08:32 | P.PN ---
Subjective Progress Note Date: 12/27/19 Principal diagnosis: Status post aVR This is a very pleasant 69-year-old female patient who sees Dr. Enrique as an outpatient who underwent yesterday aortic valve replacement using bioprosthetic valve for severe symptomatic aortic stenosis. The patient was seen today, December 272019. This is postoperative elevation day #2. Overall clinically she has done well. She continues to be hemodynamically stable except for brief drop in the blood pressure yesterday, where she received albumin and the pressure improved. Otherwise her kidney function continues to be stable. Hemoglobin continues to be stable as well. The urine output overall has been marginal. The patient continues to be on aspirin as well as a statin as well as beta zakia. Objective - Vital Signs Vital signs: Vital Signs Temp 98.4 F 12/27/19 04:00 Pulse 86 12/27/19 08:18 Resp 22 12/27/19 07:00 BP 121/68 12/27/19 07:00 Pulse Ox 96 12/27/19 07:00 Intake & Output 12/26/19 12/27/19 12/27/19 18:59 06:59 18:59 Intake Total 624.513 837.429 143.037 Output Total 492 1430 85 Balance 132.513 -592.571 58.037 Weight 93.4 kg 92.3 kg Intake: IV 593 402 41 Co/CI 100 Lactated Ringers 1,000 ml 400 330 35 @ 20 mls/hr IV .Q24H [facility] Rx#:[id number] pressure bags 93 72 6 Intake, IV Titration 31.513 315.429 102.037 Amount Albumin Human 5% 250 ml 250 In Empty Bag 1 bag @ 250 mls/hr IVPB Q1HR PRN Rx#: [id number] Insulin Regular 100 unit 31.513 15.429 2.037 In Sodium Chloride 0.9% 100 ml @ Per Protocol IV .Q0M [facility] Rx#:[id number] Potassium Chloride 20 meq 100 In Water For Injection 1 100ml.bag @ 50 mls/hr IVPB ONCE [facility] Rx#: [id number] ceFAZolin 2 gm In Sodium 50 Chloride 0.9% 50 ml @ 100 mls/hr IVPB Q8HR [facility] Rx# :[id number] Oral 120 Output: Chest Tube Drainage 220 205 25 Chest Tube Right Pleural/ 220 205 25 Mediastinal Urine 272 1225 60 Other: Voiding Method Indwelling Catheter Indwelling Catheter ABP, PAP, CO, CI - Last Documented Arterial Blood Pressure 146/58 Pulmonary Artery Pressure 33/13 Cardiac Output 3.9 Cardiac Index 2.1 - Constitutional General appearance: Present: no acute distress - Respiratory Respiratory: bilateral: diminished - Cardiovascular Rhythm: regular Heart sounds: normal: S1, S2 - Labs CBC & Chem 7: 12/27/19 04:00 12/27/19 04:00 Labs: Abnormal Lab Results - Last 24 Hours (Table) 12/12/19 12/26/19 12/26/19 Range/Units 09:05 08:49 10:50 RBC (3.80-5.40) m/uL Hgb (11.4-16.0) gm/dL Hct (34.0-46.0) % Plt Count (150-450) k/uL Sodium (137-145) mmol/L BUN (7-17) mg/dL Glucose (74-99) mg/dL POC Glucose (mg/dL) 129 H 120 H (75-99) mg/dL Calcium (8.4-10.2) mg/dL AST (14-36) U/L Total Protein (6.3-8.2) g/dL Albumin (3.5-5.0) g/dL Crossmatch See Detail 12/26/19 12/26/19 12/26/19 Range/Units 13:06 15:54 17:08 RBC (3.80-5.40) m/uL Hgb (11.4-16.0) gm/dL Hct (34.0-46.0) % Plt Count (150-450) k/uL Sodium (137-145) mmol/L BUN (7-17) mg/dL Glucose (74-99) mg/dL POC Glucose (mg/dL) 167 H 123 H 122 H (75-99) mg/dL Calcium (8.4-10.2) mg/dL AST (14-36) U/L Total Protein (6.3-8.2) g/dL Albumin (3.5-5.0) g/dL Crossmatch 12/26/19 12/26/19 12/26/19 Range/Units 18:46 20:21 21:01 RBC (3.80-5.40) m/uL Hgb (11.4-16.0) gm/dL Hct (34.0-46.0) % Plt Count (150-450) k/uL Sodium (137-145) mmol/L BUN (7-17) mg/dL Glucose (74-99) mg/dL POC Glucose (mg/dL) 185 H 126 H 114 H (75-99) mg/dL Calcium (8.4-10.2) mg/dL AST (14-36) U/L Total Protein (6.3-8.2) g/dL Albumin (3.5-5.0) g/dL Crossmatch 12/26/19 12/26/19 12/27/19 Range/Units 21:54 22:58 00:05 RBC (3.80-5.40) m/uL Hgb (11.4-16.0) gm/dL Hct (34.0-46.0) % Plt Count (150-450) k/uL Sodium (137-145) mmol/L BUN (7-17) mg/dL Glucose (74-99) mg/dL POC Glucose (mg/dL) 126 H 151 H 103 H (75-99) mg/dL Calcium (8.4-10.2) mg/dL AST (14-36) U/L Total Protein (6.3-8.2) g/dL Albumin (3.5-5.0) g/dL Crossmatch 12/27/19 12/27/19 12/27/19 Range/Units 01:02 02:11 03:07 RBC (3.80-5.40) m/uL Hgb (11.4-16.0) gm/dL Hct (34.0-46.0) % Plt Count (150-450) k/uL Sodium (137-145) mmol/L BUN (7-17) mg/dL Glucose (74-99) mg/dL POC Glucose (mg/dL) 147 H 131 H 113 H (75-99) mg/dL Calcium (8.4-10.2) mg/dL AST (14-36) U/L Total Protein (6.3-8.2) g/dL Albumin (3.5-5.0) g/dL Crossmatch 12/27/19 12/27/19 12/27/19 Range/Units 04:00 04:00 04:04 RBC 3.01 L (3.80-5.40) m/uL Hgb 8.7 L D (11.4-16.0) gm/dL Hct 27.2 L (34.0-46.0) % Plt Count 143 L (150-450) k/uL Sodium 133 L (137-145) mmol/L BUN 26 H (7-17) mg/dL Glucose 126 H (74-99) mg/dL POC Glucose (mg/dL) 138 H (75-99) mg/dL Calcium 8.2 L (8.4-10.2) mg/dL AST 48 H (14-36) U/L Total Protein 5.3 L (6.3-8.2) g/dL Albumin 3.4 L (3.5-5.0) g/dL Crossmatch 12/27/19 12/27/19 12/27/19 Range/Units 05:12 05:58 07:00 RBC (3.80-5.40) m/uL Hgb (11.4-16.0) gm/dL Hct (34.0-46.0) % Plt Count (150-450) k/uL Sodium (137-145) mmol/L BUN (7-17) mg/dL Glucose (74-99) mg/dL POC Glucose (mg/dL) 128 H 136 H 132 H (75-99) mg/dL Calcium (8.4-10.2) mg/dL AST (14-36) U/L Total Protein (6.3-8.2) g/dL Albumin (3.5-5.0) g/dL Crossmatch 12/27/19 Range/Units 08:01 RBC (3.80-5.40) m/uL Hgb (11.4-16.0) gm/dL Hct (34.0-46.0) % Plt Count (150-450) k/uL Sodium (137-145) mmol/L BUN (7-17) mg/dL Glucose (74-99) mg/dL POC Glucose (mg/dL) 201 H (75-99) mg/dL Calcium (8.4-10.2) mg/dL AST (14-36) U/L Total Protein (6.3-8.2) g/dL Albumin (3.5-5.0) g/dL Crossmatch Assessment and Plan Assessment: Assessment #1 status post aortic valve replacement #2 diabetes type 2 #3 hypertension #4 dyslipidemia Plan #1 continue the current medical regimen including aspirin, statin, and metoprolol #2 monitor the heart rhythm. So far she has been maintaining normal sinus mechanism #3 continue monitor the blood work including CBC and BMP #4 follow-up with the patient Thank you for allowing us participate in her care
[2019-12-27] MEDS: HEPARIN SODIUM,PORCINE 5,000 UNIT/ML 1 ML VIAL SQ SCH ×3 (08:37→23:17)
[2019-12-27] MEDS: ATORVASTATIN 40 MG TAB PO SCH (08:37)
[2019-12-27] MEDS: METOPROLOL TARTRATE 25 MG TAB PO SCH ×2 (08:38→20:17)
[2019-12-27] MEDS: CLOPIDOGREL 75 MG TAB PO SCH (08:38)
[2019-12-27] MEDS: ASPIRIN 325 MG TAB PO SCH (08:38)
[2019-12-27 10:10] LABS: Glucose,Whole Blood 137 mg/dL (75-99)
--- NOTE | 2019-12-27 11:04 | P.PN ---
Subjective Progress Note Date: 12/27/19 The patient is seen today 12/27/2019 in follow-up in the intensive care unit. She is postoperative day #2 following an aortic valve replacement and atrial appendage clipping. She is currently sitting up in a chair at the bedside. She's been up ambulating in the hallway. She is doing quite well. She is maintaining good O2 saturations in the 90s on 3 L/m per nasal cannula. Chest x- ray shows adequate expansion of the lungs with postsurgical changes. There remains a right-sided chest tube with mediastinal chest tube are connected and output has increased over the past [address] No evidence of leak. She remains in sinus rhythm. She is currently on insulin drip at 0.5 units per hour. Working well with the incentive spirometer still just approximate 500-750 ML's. White count 9.0. Hemoglobin 8.7. Sodium 133. Potassium 3.8. Creatinine 0.75. Clevidipine is soft. Still receiving albumin. Cefazolin remains. Continue bronchodilators. Objective - Vital Signs Vital signs: Vital Signs Temp 98.8 F 12/27/19 08:00 Pulse 93 12/27/19 10:04 Resp 22 12/27/19 10:04 BP 105/68 12/27/19 10:04 Pulse Ox 100 12/27/19 10:04 Intake & Output 12/26/19 12/27/19 12/27/19 18:59 06:59 18:59 Intake Total 624.513 837.429 314.107 Output Total 492 1430 780 Balance 132.513 -592.571 -465.893 Weight 93.4 kg 92.3 kg Intake: IV 593 402 205 Co/CI 100 Lactated Ringers 1,000 ml 400 330 175 @ 20 mls/hr IV .Q24H [facility] Rx#:[id number] pressure bags 93 72 30 Intake, IV Titration 31.513 315.429 109.107 Amount Albumin Human 5% 250 ml 250 In Empty Bag 1 bag @ 250 mls/hr IVPB Q1HR PRN Rx#: [id number] Insulin Regular 100 unit 31.513 15.429 9.107 In Sodium Chloride 0.9% 100 ml @ Per Protocol IV .Q0M [facility] Rx#:[id number] Potassium Chloride 20 meq 100 In Water For Injection 1 100ml.bag @ 50 mls/hr IVPB ONCE STA Rx#: [id number] ceFAZolin 2 gm In Sodium 50 Chloride 0.9% 50 ml @ 100 mls/hr IVPB Q8HR [facility] Rx# :[id number] Oral 120 Output: Chest Tube Drainage 220 205 55 Chest Tube Right Pleural/ 220 205 55 Mediastinal Urine 272 1225 725 Other: Voiding Method Indwelling Catheter Indwelling Catheter Indwelling Catheter ABP, PAP, CO, CI - Last Documented Arterial Blood Pressure 151/57 Pulmonary Artery Pressure 33/13 Cardiac Output 3.9 Cardiac Index 2.1 - Exam Gen. appearance pleasant 69-year-old female patient, awake and alert and sitting up on the recliner. comfortable in no acute distress. Currently she is on oxygen at 3 L per minute nasal cannula with a pulse ox of 95%. Head exam was generally normal. There was no scleral icterus or corneal arcus. Mucous membranes were moist. Neck was supple and without jugular venous distension, thyromegaly, or carotid bruits. Carotids were easily palpable bilaterally. There was no adenopathy. Breath sounds on the lung examination is equal and symmetrical. Crackles in the bilateral posterior bases right greater than left The patient is a right pleural and mediastinal chest tubes. Output from the chest tube has continued and has no evidence of any air leak. Cardiac exam revealed the PMI to be normally situated and sized. The rhythm was regular and no extrasystoles were noted during several minutes of auscultation. The first and second heart sounds were normal and physiologic splitting of the second heart sound was noted. There were no murmurs, rubs, clicks, or gallops. Sternum stable clean and intact and the chest tubes are all in place Abdominal exam revealed normal bowel sounds. The abdomen was soft, non-tender, and without masses, organomegaly, or appreciable enlargement of the abdominal aorta. Examination of the extremities revealed easily palpable radial, femoral and pedal pulses. There was no cyanosis, clubbing or edema. Examination of the skin revealed no evidence of significant rashes, suspicious appearing nevi or other concerning lesions. Neurologic is awake and alert and oriented and there is no focal neurological deficits. - Labs CBC & Chem 7: 12/27/19 04:00 12/27/19 04:00 Labs: Abnormal Lab Results - Last 24 Hours (Table) 0212/26/19 12/26/19 Range/Units 13:06 15:54 17:08 RBC (3.80-5.40) m/uL Hgb (11.4-16.0) gm/dL Hct (34.0-46.0) % Plt Count (150-450) k/uL Sodium (137-145) mmol/L BUN (7-17) mg/dL Glucose (74-99) mg/dL POC Glucose (mg/dL) 167 H 123 H 122 H (75-99) mg/dL Calcium (8.4-10.2) mg/dL AST (14-36) U/L Total Protein (6.3-8.2) g/dL Albumin (3.5-5.0) g/dL 12/26/19 12/26/19 12/26/19 Range/Units 18:46 20:21 21:01 RBC (3.80-5.40) m/uL Hgb (11.4-16.0) gm/dL Hct (34.0-46.0) % Plt Count (150-450) k/uL Sodium (137-145) mmol/L BUN (7-17) mg/dL Glucose (74-99) mg/dL POC Glucose (mg/dL) 185 H 126 H 114 H (75-99) mg/dL Calcium (8.4-10.2) mg/dL AST (14-36) U/L Total Protein (6.3-8.2) g/dL Albumin (3.5-5.0) g/dL 12/26/19 12/26/19 12/27/19 Range/Units 21:54 22:58 00:05 RBC (3.80-5.40) m/uL Hgb (11.4-16.0) gm/dL Hct (34.0-46.0) % Plt Count (150-450) k/uL Sodium (137-145) mmol/L BUN (7-17) mg/dL Glucose (74-99) mg/dL POC Glucose (mg/dL) 126 H 151 H 103 H (75-99) mg/dL Calcium (8.4-10.2) mg/dL AST (14-36) U/L Total Protein (6.3-8.2) g/dL Albumin (3.5-5.0) g/dL 12/27/19 12/27/19 12/27/19 Range/Units 01:02 02:11 03:07 RBC (3.80-5.40) m/uL Hgb (11.4-16.0) gm/dL Hct (34.0-46.0) % Plt Count (150-450) k/uL Sodium (137-145) mmol/L BUN (7-17) mg/dL Glucose (74-99) mg/dL POC Glucose (mg/dL) 147 H 131 H 113 H (75-99) mg/dL Calcium (8.4-10.2) mg/dL AST (14-36) U/L Total Protein (6.3-8.2) g/dL Albumin (3.5-5.0) g/dL 12/27/19 12/27/19 12/27/19 Range/Units 04:00 04:00 04:04 RBC 3.01 L (3.80-5.40) m/uL Hgb 8.7 L D (11.4-16.0) gm/dL Hct 27.2 L (34.0-46.0) % Plt Count 143 L (150-450) k/uL Sodium 133 L (137-145) mmol/L BUN 26 H (7-17) mg/dL Glucose 126 H (74-99) mg/dL POC Glucose (mg/dL) 138 H (75-99) mg/dL Calcium 8.2 L (8.4-10.2) mg/dL AST 48 H (14-36) U/L Total Protein 5.3 L (6.3-8.2) g/dL Albumin 3.4 L (3.5-5.0) g/dL 12/27/19 12/27/19 12/27/19 Range/Units 05:12 05:58 07:00 RBC (3.80-5.40) m/uL Hgb (11.4-16.0) gm/dL Hct (34.0-46.0) % Plt Count (150-450) k/uL Sodium (137-145) mmol/L BUN (7-17) mg/dL Glucose (74-99) mg/dL POC Glucose (mg/dL) 128 H 136 H 132 H (75-99) mg/dL Calcium (8.4-10.2) mg/dL AST (14-36) U/L Total Protein (6.3-8.2) g/dL Albumin (3.5-5.0) g/dL 12/27/19 12/27/19 Range/Units 08:01 10:09 RBC (3.80-5.40) m/uL Hgb (11.4-16.0) gm/dL Hct (34.0-46.0) % Plt Count (150-450) k/uL Sodium (137-145) mmol/L BUN (7-17) mg/dL Glucose (74-99) mg/dL POC Glucose (mg/dL) 201 H 137 H (75-99) mg/dL Calcium (8.4-10.2) mg/dL AST (14-36) U/L Total Protein (6.3-8.2) g/dL Albumin (3.5-5.0) g/dL Assessment and Plan Assessment: 1 severe aortic stenosis post aortic valve replacement. The patient is postop day #2. Successfully extubated on 3 L/m per nasal cannula. 2 Post thoracotomy, extubated without any major difficulty currently on pre vious of oxygen by nasal cannula 3 hypertension currently off Cleviprex for blood pressure control. Hemodynamic parameters are all stable 4 Diabetes mellitus 5 hyperlipidemia 6 hypertension Plan The patient was seen and evaluated by Dr. Ybarra. Chest x-ray and labs reviewed Working well with the incentive spirometer Continued on albumin, urine output improved Chest tubes remain in place Insulin drip down to 0.5 units per hour Increase activity as tolerated We'll continue to follow I, the cosigning physician, performed a history & physical examination of the patient. Lungs sounds with crackles in the bilateral posterior bases right greater than left Maintaining good O2 saturations in the 90s on 3 L/m per nasal cannula. I discussed the assessment and plan of care with my nurse practitioner, Roslyn Swift. I attest to the above note as dictated by her.
[2019-12-27 11:20] LABS: Glucose,Whole Blood 138 mg/dL (75-99)
[2019-12-27 12:01] LABS: Glucose,Whole Blood 134 mg/dL (75-99)
--- NOTE | 2019-12-27 12:09 | P.PN ---
Subjective Progress Note Date: 12/27/19 Principal diagnosis: Symptomatic severe aortic valve stenosis. Past medical history of hypertension, hyperlipidemia, diabetes mellitus type 2 and gastroesophageal reflux disease. POD #2 aortic valve replacement with a #21 mm Ross Inspiris bioprosthetic aortic valve, clip ligation of the left atrial appendage with a 35 mm Atriclip and an intraoperative transesophageal echocardiogram. Acute postoperative blood loss anemia, an expected outcome secondary to hemodilution and cardiopulmonary bypass. The patient is sitting up to the bedside chair in the intensive care unit. She is in no acute distress. She denies any complaints of pain or shortness of breath. She remains hemodynamically stable and is currently on no inotropic or pressor support, current hemodynamics show a CVP of 18 mmHg. Oxygen saturation are 96% on 3 L nasal cannula and she is achieving 500-750 mL on her incentive spirometry with encouragement. Mediastinal and right pleural chest tubes remained in place to low continuous wall suction -20 cm H2O. No air leak is present. Draining thin serosanguineous drainage with 170 mL output in the last 8 hours and 450 mL output in the last 24 hours. Bedside telemetry showing normal sinus rhythm heart rate 89 BPM. She remains afebrile. The patient states that she has been able urinating in the intensive care unit hallway 2-3 times yesterday and once this morning. Lasix 40 mg IV push was given yesterday 1 with 975 mL in urine after the Lasix. Objective - Vital Signs Vital signs: Vital Signs Temp 98.8 F 12/27/19 08:00 Pulse 93 12/27/19 10:04 Resp 22 12/27/19 10:04 BP 105/68 12/27/19 10:04 Pulse Ox 100 12/27/19 10:04 Intake & Output 12/26/19 12/27/19 12/27/19 18:59 06:59 18:59 Intake Total 624.513 837.429 314.107 Output Total 492 1430 780 Balance 132.513 -592.571 -465.893 Weight 93.4 kg 92.3 kg Intake: IV 593 402 205 Co/CI 100 Lactated Ringers 1,000 ml 400 330 175 @ 20 mls/hr IV .Q24H [facility] Rx#:[id number] pressure bags 93 72 30 Intake, IV Titration 31.513 315.429 109.107 Amount Albumin Human 5% 250 ml 250 In Empty Bag 1 bag @ 250 mls/hr IVPB Q1HR PRN Rx#: [id number] Insulin Regular 100 unit 31.513 15.429 9.107 In Sodium Chloride 0.9% 100 ml @ Per Protocol IV .Q0M [facility] Rx#:[id number] Potassium Chloride 20 meq 100 In Water For Injection 1 100ml.bag @ 50 mls/hr IVPB ONCE [facility] Rx#: [id number] ceFAZolin 2 gm In Sodium 50 Chloride 0.9% 50 ml @ 100 mls/hr IVPB Q8HR [facility] Rx# :[id number] Oral 120 Output: Chest Tube Drainage 220 205 55 Chest Tube Right Pleural/ 220 205 55 Mediastinal Urine 272 1225 725 Other: Voiding Method Indwelling Catheter Indwelling Catheter Indwelling Catheter ABP, PAP, CO, CI - Last Documented Arterial Blood Pressure 151/57 Pulmonary Artery Pressure 33/13 Cardiac Output 3.9 Cardiac Index 2.1 - Constitutional General appearance: Present: cooperative, no acute distress, obese - Respiratory Details: Lung sounds are essentially clear throughout, diminished bilateral bases. Respirations are symmetrical and nonlabored. Oxygen saturation 96% on 3 L nasal cannula. Achieving 500-750 mL on her incentive spirometry. Mediastinal and right pleural chest tubes remain in place to low continuous wall suction -20 cm H2O. No air leak is present. Draining thin serosanguineous drainage. - Cardiovascular Details: Regular rhythm and rate. S1 and S2 present, negative for S3, gallop or murmur. Sternum is stable. Heart hugger and surgical support bra are in place. Atrial and ventricular epicardial pacemaker wires in place are grounded. Bedside telemetry showing normal sinus rhythm heart rate 89. Right IJ cordis in place and functioning. Right radial arterial line in place and functioning. Knee- high BRITNEY hose and sequential compression devices in place to bilateral lower extremity. No edema present. - Gastrointestinal Gastrointestinal Comment(s): Abdomen is soft, nontender and nondistended. Hypoactive bowel sounds present all 4 abdominal quadrants. No guarding or rigidity. No organomegaly appreciated. Passing flatus. - Genitourinary Genitourinary Comment(s): Ivy catheter for accurate I&O. Draining clear yellow urine. 285 mL output last 8 hours. - Integumentary Integumentary Comment(s): Skin is warm and dry. No clubbing or cyanosis is present. Midline sternal incision is clean, dry and approximated. Dressing is clean, dry and intact. No drainage or redness is present. - Neurologic Neurologic: Present: CNII-XII intact - Musculoskeletal Musculoskeletal: Present: gait normal, generalized weakness, strength equal bilaterally - Psychiatric Psychiatric: Present: A&O x's 3, appropriate affect, intact judgment & insight - Allied health notes Allied health notes reviewed: nursing - Labs CBC & Chem 7: 12/27/19 04:00 12/27/19 04:00 Labs: Abnormal Lab Results - Last 24 Hours (Table) 12/26/19 12/26/19 12/26/19 Range/Units 13:06 15:54 17:08 RBC (3.80-5.40) m/uL Hgb (11.4-16.0) gm/dL Hct (34.0-46.0) % Plt Count (150-450) k/uL Sodium (137-145) mmol/L BUN (7-17) mg/dL Glucose (74-99) mg/dL POC Glucose (mg/dL) 167 H 123 H 122 H (75-99) mg/dL Calcium (8.4-10.2) mg/dL AST (14-36) U/L Total Protein (6.3-8.2) g/dL Albumin (3.5-5.0) g/dL 12/26/19 12/26/19 12/26/19 Range/Units 18:46 20:21 21:01 RBC (3.80-5.40) m/uL Hgb (11.4-16.0) gm/dL Hct (34.0-46.0) % Plt Count (150-450) k/uL Sodium (137-145) mmol/L BUN (7-17) mg/dL Glucose (74-99) mg/dL POC Glucose (mg/dL) 185 H 126 H 114 H (75-99) mg/dL Calcium (8.4-10.2) mg/dL AST (14-36) U/L Total Protein (6.3-8.2) g/dL Albumin (3.5-5.0) g/dL 12/26/19 12/26/19 12/27/19 Range/Units 21:54 22:58 00:05 RBC (3.80-5.40) m/uL Hgb (11.4-16.0) gm/dL Hct (34.0-46.0) % Plt Count (150-450) k/uL Sodium (137-145) mmol/L BUN (7-17) mg/dL Glucose (74-99) mg/dL POC Glucose (mg/dL) 126 H 151 H 103 H (75-99) mg/dL Calcium (8.4-10.2) mg/dL AST (14-36) U/L Total Protein (6.3-8.2) g/dL Albumin (3.5-5.0) g/dL 12/27/19 12/27/19 12/27/19 Range/Units 01:02 02:11 03:07 RBC (3.80-5.40) m/uL Hgb (11.4-16.0) gm/dL Hct (34.0-46.0) % Plt Count (150-450) k/uL Sodium (137-145) mmol/L BUN (7-17) mg/dL Glucose (74-99) mg/dL POC Glucose (mg/dL) 147 H 131 H 113 H (75-99) mg/dL Calcium (8.4-10.2) mg/dL AST (14-36) U/L Total Protein (6.3-8.2) g/dL Albumin (3.5-5.0) g/dL 12/27/19 12/27/19 12/27/19 Range/Units 04:00 04:00 04:04 RBC 3.01 L (3.80-5.40) m/uL Hgb 8.7 L D (11.4-16.0) gm/dL Hct 27.2 L (34.0-46.0) % Plt Count 143 L (150-450) k/uL Sodium 133 L (137-145) mmol/L BUN 26 H (7-17) mg/dL Glucose 126 H (74-99) mg/dL POC Glucose (mg/dL) 138 H (75-99) mg/dL Calcium 8.2 L (8.4-10.2) mg/dL AST 48 H (14-36) U/L Total Protein 5.3 L (6.3-8.2) g/dL Albumin 3.4 L (3.5-5.0) g/dL 12/27/19 12/27/19 12/27/19 Range/Units 05:12 05:58 07:00 RBC (3.80-5.40) m/uL Hgb (11.4-16.0) gm/dL Hct (34.0-46.0) % Plt Count (150-450) k/uL Sodium (137-145) mmol/L BUN (7-17) mg/dL Glucose (74-99) mg/dL POC Glucose (mg/dL) 128 H 136 H 132 H (75-99) mg/dL Calcium (8.4-10.2) mg/dL AST (14-36) U/L Total Protein (6.3-8.2) g/dL Albumin (3.5-5.0) g/dL 12/27/19 12/27/19 Range/Units 08:01 10:09 RBC (3.80-5.40) m/uL Hgb (11.4-16.0) gm/dL Hct (34.0-46.0) % Plt Count (150-450) k/uL Sodium (137-145) mmol/L BUN (7-17) mg/dL Glucose (74-99) mg/dL POC Glucose (mg/dL) 201 H 137 H (75-99) mg/dL Calcium (8.4-10.2) mg/dL AST (14-36) U/L Total Protein (6.3-8.2) g/dL Albumin (3.5-5.0) g/dL - Imaging and Cardiology Chest x-ray: report reviewed, image reviewed Assessment and Plan Assessment: 1. Symptomatic severe aortic valve stenosis, status post aortic valve replacement 2. History of hypertension 3. History of hyperlipidemia 4. Diabetes mellitus type 2 with a preoperative hemoglobin A1c of 6.2% 5. Gastroesophageal reflux disease 6. Acute postoperative blood loss, and expected outcome secondary to hemodilution and cardiopulmonary bypass Plan: 1. Continue to maximize medical therapy with aspirin, statin and beta zakia. Increase metoprolol tartrate as tolerated. 2. Encourage use of her incentive spirometry every hour while awake. 3. Wean oxygen as tolerated. Bronchodilator management per pulmonary/critical care medicine. 4. Remove of right IJ Cordis. 5. Remove mediastinal chest tube and keep right pleural chest tube to low continuous wall suction -20 cm H2O, keep Ivy catheter and right radial arterial line in place. 6. Remove atrial epicardial pacemaker wires. Keep ventricular epicardial pacemaker wires in place and grounded. 7. Continue GI and DVT prophylaxis. 8. Medical/diabetes management and other comorbidities per primary care service. 9. Give Lasix 40 mg IV 1 now. 10. Increase activity as tolerated. Physical/occupational therapy and cardiac rehabilitation is following. 11. More recommendations to follow based on patient's clinical course. Epicardial atrial pacemaker wires removed without incident at 11:40 AM this morning. The patient will be on bed rest for 1 hour post pacemaker wire removal. Time with Patient: Greater than 30
[2019-12-27] MEDS: LACTATED RINGERS 1,000 ML IV SCH (12:41)
[2019-12-27 14:11] LABS: Glucose,Whole Blood 201 mg/dL (75-99)
[2019-12-27] MEDS ORDERED: METOPROLOL TARTRATE 25 MG TAB PO SCH (16:00)
[2019-12-27 17:03] LABS: Glucose,Whole Blood 139 mg/dL (75-99)
[2019-12-27] MEDS: INSULIN ASPART (NovoLOG) 100 UNIT/ML VIAL SQ SCH ×2 (17:03→20:16)
[2019-12-27 20:11] LABS: Glucose,Whole Blood 192 mg/dL (75-99)
[2019-12-27] MEDS: SENNOSIDES-DOCUSATE SODIUM 1 EACH TAB PO SCH (20:20)
--- NOTE | 2019-12-27 21:47 | P.PN ---
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 Her operative with the thoracotomy. Mild hyponatremia Sodium 133, EGFR for non- 82 stable, AST 48 mild elevation in a LT 21, total protein 5.3 albumin 3.4. Plan tinea corporis monitored and has been stable range between [id number]. Progress note dictated by Dr. Ng date of service 12/27/2019 Patient is satisfied conscious alert oriented 3 in the geriatric chair, the chest has been removed from the right side and the central line has been removed and she is clinically progressive and able to ambulate in the hallway in the ICU. And in she denied any fever or chills. Patient seen and evaluated in the ICU she is a 69 years old white female her last vital sign indicating temperature 98.8 F oral her pulse rate in 90 and the temporary pacemaker has been removed. Her respiratory rate was 26 and blood pressure ranging between 103/53 122/65. Her pulse ox on 3 L 96%. Head normocephalic and atraumatic oropharynx was negative neck was supple. Chest was clear and the heart was regular sinus rhythm and abdomen was soft obese positive bowel sound and no p.m. so far and extremities no edema. Assessment #1 diabetes mellitus type 2 insulin-dependent #2 status post valve replacement of aortic valve due to severe stenosis. Plan: Patient progressively improved. Probably they will be moving her out of ICU to telemetry monitoring floor in the next couple days. Objective - Vital Signs Vital signs: Vital Signs Temp 98.8 F 12/27/19 20:00 Pulse 82 12/27/19 21:00 Resp 21 12/27/19 21:00 BP 122/65 12/27/19 21:00 Pulse Ox 96 12/27/19 21:00 Intake & Output 12/27/19 12/27/19 12/28/19 06:59 18:59 06:59 Intake Total 837.429 503.107 225 Output Total 1430 1445 200 Balance -592.571 -941.893 25 Weight 92.3 kg Intake: IV 402 394 45 Lactated Ringers 1,000 ml 330 340 45 @ 20 mls/hr IV .Q24H [facility] Rx#:[id number] pressure bags 72 54 Intake, IV Titration 315.429 109.107 Amount Albumin Human 5% 250 ml 250 In Empty Bag 1 bag @ 250 mls/hr IVPB Q1HR PRN Rx#: [id number] Insulin Regular 100 unit 15.429 9.107 In Sodium Chloride 0.9% 100 ml @ Per Protocol IV .Q0M [facility] Rx#:[id number] Potassium Chloride 20 meq 100 In Water For Injection 1 100ml.bag @ 50 mls/hr IVPB ONCE [facility] Rx#: [id number] ceFAZolin 2 gm In Sodium 50 Chloride 0.9% 50 ml @ 100 mls/hr IVPB Q8HR [facility] Rx# :[id number] Oral 120 180 Output: Chest Tube Drainage 205 115 50 Chest Tube Right Pleural/ 205 115 50 Mediastinal Urine 1225 1330 150 Other: Voiding Method Indwelling Catheter Indwelling Catheter ABP, PAP, CO, CI - Last Documented Arterial Blood Pressure 168/70 Pulmonary Artery Pressure 33/13 Cardiac Output 3.9 Cardiac Index 2.1 - Labs CBC & Chem 7: 12/27/19 04:00 12/27/19 04:00 Labs: Abnormal Lab Results - Last 24 Hours (Table) 12/26/19 12/26/19 12/27/19 Range/Units 21:54 22:58 00:05 RBC (3.80-5.40) m/uL Hgb (11.4-16.0) gm/dL Hct (34.0-46.0) % Plt Count (150-450) k/uL Sodium (137-145) mmol/L BUN (7-17) mg/dL Glucose (74-99) mg/dL POC Glucose (mg/dL) 126 H 151 H 103 H (75-99) mg/dL Calcium (8.4-10.2) mg/dL AST (14-36) U/L Total Protein (6.3-8.2) g/dL Albumin (3.5-5.0) g/dL 12/27/19 12/27/19 12/27/19 Range/Units 01:02 02:11 03:07 RBC (3.80-5.40) m/uL Hgb (11.4-16.0) gm/dL Hct (34.0-46.0) % Plt Count (150-450) k/uL Sodium (137-145) mmol/L BUN (7-17) mg/dL Glucose (74-99) mg/dL POC Glucose (mg/dL) 147 H 131 H 113 H (75-99) mg/dL Calcium (8.4-10.2) mg/dL AST (14-36) U/L Total Protein (6.3-8.2) g/dL Albumin (3.5-5.0) g/dL 12/27/19 12/27/19 12/27/19 Range/Units 04:00 04:00 04:04 RBC 3.01 L (3.80-5.40) m/uL Hgb 8.7 L D (11.4-16.0) gm/dL Hct 27.2 L (34.0-46.0) % Plt Count 143 L (150-450) k/uL Sodium 133 L (137-145) mmol/L BUN 26 H (7-17) mg/dL Glucose 126 H (74-99) mg/dL POC Glucose (mg/dL) 138 H (75-99) mg/dL Calcium 8.2 L (8.4-10.2) mg/dL AST 48 H (14-36) U/L Total Protein 5.3 L (6.3-8.2) g/dL Albumin 3.4 L (3.5-5.0) g/dL 12/27/19 12/27/19 12/27/19 Range/Units 05:12 05:58 07:00 RBC (3.80-5.40) m/uL Hgb (11.4-16.0) gm/dL Hct (34.0-46.0) % Plt Count (150-450) k/uL Sodium (137-145) mmol/L BUN (7-17) mg/dL Glucose (74-99) mg/dL POC Glucose (mg/dL) 128 H 136 H 132 H (75-99) mg/dL Calcium (8.4-10.2) mg/dL AST (14-36) U/L Total Protein (6.3-8.2) g/dL Albumin (3.5-5.0) g/dL 12/27/19 12/27/19 12/27/19 Range/Units 08:01 10:09 11:18 RBC (3.80-5.40) m/uL Hgb (11.4-16.0) gm/dL Hct (34.0-46.0) % Plt Count (150-450) k/uL Sodium (137-145) mmol/L BUN (7-17) mg/dL Glucose (74-99) mg/dL POC Glucose (mg/dL) 201 H 137 H 138 H (75-99) mg/dL Calcium (8.4-10.2) mg/dL AST (14-36) U/L Total Protein (6.3-8.2) g/dL Albumin (3.5-5.0) g/dL 12/27/19 12/27/19 12/27/19 Range/Units 12:00 14:09 17:01 RBC (3.80-5.40) m/uL Hgb (11.4-16.0) gm/dL Hct (34.0-46.0) % Plt Count (150-450) k/uL Sodium (137-145) mmol/L BUN (7-17) mg/dL Glucose (74-99) mg/dL POC Glucose (mg/dL) 134 H 201 H 139 H (75-99) mg/dL Calcium (8.4-10.2) mg/dL AST (14-36) U/L Total Protein (6.3-8.2) g/dL Albumin (3.5-5.0) g/dL 12/27/19 Range/Units 20:10 RBC (3.80-5.40) m/uL Hgb (11.4-16.0) gm/dL Hct (34.0-46.0) % Plt Count (150-450) k/uL Sodium (137-145) mmol/L BUN (7-17) mg/dL Glucose (74-99) mg/dL POC Glucose (mg/dL) 192 H (75-99) mg/dL Calcium (8.4-10.2) mg/dL AST (14-36) U/L Total Protein (6.3-8.2) g/dL Albumin (3.5-5.0) g/dL
[2019-12-28 05:17] LABS: Basophils % (A) 0 %; Eosinophils # (A) 0.1 k/uL (0-0.7); Eosinophils % (A) 1 %; HGB 8.9 gm/dL (11.4-16.0); Lymphocytes # (A) 1.1 k/uL (1.0-4.8); Lymphocytes % (A) 14 %; MCH 29.8 pg (25.0-35.0); MCHC 33.1 g/dL (31.0-37.0); MCV 90.1 fL (80.0-100.0); Mean Platelet Volume 6.9; Monocytes # (A) 0.5 k/uL (0-1.0); Monocytes % (A) 6 %; Neutrophils # (A) 6.2 k/uL (1.3-7.7); Neutrophils % (A) 78 %; Platelet Count 167 k/uL (150-450); RBC 2.99 m/uL (3.80-5.40); RDW 13.4 % (11.5-15.5)
[2019-12-28 05:24] LABS: ALT 39 U/L (4-34); AST 66 U/L (14-36); African American GFR (CKD) >90 (>60 ml/min/1.73 sqM); Albumin 3.2 g/dL (3.5-5.0); Alkaline Phosphatase 169 U/L (38-126); Anion Gap 5 mmol/L; Blood Urea Nitrogen 26 mg/dL (7-17); Calcium 8.2 mg/dL (8.4-10.2); Carbon Dioxide 31 mmol/L (22-30); Chloride 98 mmol/L (98-107); Glucose 124 mg/dL (74-99); Non-African American GFR(CKD) 90 (>60 ml/min/1.73 sqM); Sodium 134 mmol/L (137-145); Total Bilirubin 0.5 mg/dL (0.2-1.3); Total Protein 5.2 g/dL (6.3-8.2)
[2019-12-28] MEDS: KETOROLAC 30 MG/ML 1 ML VIAL IVP SCH ×3 (05:51→18:34)
--- NOTE | 2019-12-28 06:29 | XR ---
EXAMINATION TYPE: XR chest 1V portable DATE OF EXAM: 12/28/2019 HISTORY: Post-Op Caridiac Procedure. REFERENCE: Previous study dated 12/27/2019. FINDINGS: There has been a midline sternotomy. There is a right pleural drain in place. No definite p neumothorax is seen. The heart is enlarged. There is vascular congestion and pulmonary edema. I suspect small, bilateral e ffusions. IMPRESSION: WORSENING CHANGES OF HEART FAILURE.
[2019-12-28 06:34] LABS: Glucose,Whole Blood 145 mg/dL (75-99)
[2019-12-28] MEDS: INSULIN ASPART (NovoLOG) 100 UNIT/ML VIAL SQ SCH ×4 (06:36→20:31)
[2019-12-28] MEDS: PANTOPRAZOLE 40 MG TABLET PO SCH (06:36)
--- NOTE | 2019-12-28 07:42 | P.PN ---
Subjective Progress Note Date: 12/28/19 Principal diagnosis: Status post aVR This is a very pleasant 69-year-old female patient who sees Dr. Enrique as an outpatient who underwent yesterday aortic valve replacement using bioprosthetic valve for severe symptomatic aortic stenosis. The patient was seen today, December 282019. She remains hemodynamically stable. She remains in normal sinus mechanism. The chest x-ray was reviewed today and showed a component of heart failure/fluid overload. I will suggest gi ve the patient a dose of IV Lasix. Otherwise she remains on dual antiplatelet therapy along with high intensity statin. The hemoglobin is stable. The creatinine is within normal limits. She started having the mediastinal chest tube there. Objective - Vital Signs Vital signs: Vital Signs Temp 98.7 F 12/28/19 04:00 Pulse 79 12/28/19 07:00 Resp 17 12/28/19 07:00 BP 123/67 12/28/19 07:00 Pulse Ox 96 12/28/19 07:00 Intake & Output 12/27/19 12/28/19 12/28/19 18:59 06:59 18:59 Intake Total 503.107 800 165 Output Total 1445 597 0 Balance -941.893 203 165 Weight 92.1 kg Intake: IV 394 180 15 Lactated Ringers 1,000 ml 340 180 15 @ 20 mls/hr IV .Q24H [facility] Rx#:[id number] pressure bags 54 Intake, IV Titration 109.107 Amount Insulin Regular 100 unit 9.107 In Sodium Chloride 0.9% 100 ml @ Per Protocol IV .Q0M [facility] Rx#:[id number] Potassium Chloride 20 meq 100 In Water For Injection 1 100ml.bag @ 50 mls/hr IVPB ONCE [facility] Rx#: [id number] Oral 620 150 Output: Chest Tube Drainage 115 127 Chest Tube Right Pleural/ 115 127 Mediastinal Urine 1330 470 0 Other: Voiding Method Indwelling Catheter Indwelling Catheter # Voids 1 ABP, PAP, CO, CI - Last Documented Arterial Blood Pressure 168/70 Pulmonary Artery Pressure 33/13 Cardiac Output 3.9 Cardiac Index 2.1 - Constitutional General appearance: Present: no acute distress - Respiratory Respiratory: bilateral: diminished - Cardiovascular Rhythm: regular Heart sounds: normal: S1, S2 - Labs CBC & Chem 7: 12/28/19 04:31 12/28/19 04:31 Labs: Abnormal Lab Results - Last 24 Hours (Table) 12/27/19 12/27/19 12/27/19 Range/Units 08:01 10:09 11:18 RBC (3.80-5.40) m/uL Hgb (11.4-16.0) gm/dL Hct (34.0-46.0) % Sodium (137-145) mmol/L Carbon Dioxide (22-30) mmol/L BUN (7-17) mg/dL Glucose (74-99) mg/dL POC Glucose (mg/dL) 201 H 137 H 138 H (75-99) mg/dL Calcium (8.4-10.2) mg/dL AST (14-36) U/L ALT (4-34) U/L Alkaline Phosphatase (38-126) U/L Total Protein (6.3-8.2) g/dL Albumin (3.5-5.0) g/dL 12/27/19 12/27/19 12/27/19 Range/Units 12:00 14:09 17:01 RBC (3.80-5.40) m/uL Hgb (11.4-16.0) gm/dL Hct (34.0-46.0) % Sodium (137-145) mmol/L Carbon Dioxide (22-30) mmol/L BUN (7-17) mg/dL Glucose (74-99) mg/dL POC Glucose (mg/dL) 134 H 201 H 139 H (75-99) mg/dL Calcium (8.4-10.2) mg/dL AST (14-36) U/L ALT (4-34) U/L Alkaline Phosphatase (38-126) U/L Total Protein (6.3-8.2) g/dL Albumin (3.5-5.0) g/dL 12/27/19 12/28/19 12/28/19 Range/Units 20:10 04:31 04:31 RBC 2.99 L (3.80-5.40) m/uL Hgb 8.9 L (11.4-16.0) gm/dL Hct 27.0 L (34.0-46.0) % Sodium 134 L (137-145) mmol/L Carbon Dioxide 31 H (22-30) mmol/L BUN 26 H (7-17) mg/dL Glucose 124 H (74-99) mg/dL POC Glucose (mg/dL) 192 H (75-99) mg/dL Calcium 8.2 L (8.4-10.2) mg/dL AST 66 H (14-36) U/L ALT 39 H (4-34) U/L Alkaline Phosphatase 169 H (38-126) U/L Total Protein 5.2 L (6.3-8.2) g/dL Albumin 3.2 L (3.5-5.0) g/dL 12/28/19 Range/Units 06:32 RBC (3.80-5.40) m/uL Hgb (11.4-16.0) gm/dL Hct (34.0-46.0) % Sodium (137-145) mmol/L Carbon Dioxide (22-30) mmol/L BUN (7-17) mg/dL Glucose (74-99) mg/dL POC Glucose (mg/dL) 145 H (75-99) mg/dL Calcium (8.4-10.2) mg/dL AST (14-36) U/L ALT (4-34) U/L Alkaline Phosphatase (38-126) U/L Total Protein (6.3-8.2) g/dL Albumin (3.5-5.0) g/dL Assessment and Plan Assessment: Assessment #1 status post aortic valve replacement #2 diabetes type 2 #3 hypertension #4 dyslipidemia Plan #1 continue the current medical regimen including dual antiplatelet therapy along with a statin Number to suggest give the patient dose of IV Lasix. The chest x-ray showed findings consistent with heart failure Thank you for allowing us participate in her care
[2019-12-28] MEDS: IPRATROPIUM-ALBUTEROL 3 ML NEB INHALATION SCH ×4 (07:58→19:28)
--- NOTE | 2019-12-28 08:20 | P.PN ---
Subjective Progress Note Date: 12/28/19 The patient is seen today 12/28/2019 and follow-up in the intensive care unit. This is postoperative day #3 following aortic valve replacement and atrial appendage clipping. She is currently awake and alert in no acute distress. Sitting up in a chair at the bedside. No worsening shortness of breath, cough or congestion. She is maintaining good O2 saturations in the 90s on room air. Chest x-ray shows some continued fluid volume overload and congestion. She had been receiving Lasix on a daily basis. White count 8.0. Hemoglobin 8.9. Sodium 134. Potassium 4.0. Bicarb 31. Creatinine 0.69. AST 66, ALT 39, alk phos 169. She continues to work well with the incentive spirometer. Plan is for possible removal of chest tubes today. She'll be up ambulating in the hallway with assistance. . Objective - Vital Signs Vital signs: Vital Signs Temp 98.7 F 12/28/19 04:00 Pulse 93 12/28/19 07:59 Resp 17 12/28/19 07:00 BP 123/67 12/28/19 07:00 Pulse Ox 96 12/28/19 07:00 Intake & Output 12/27/19 12/28/19 12/28/19 18:59 06:59 18:59 Intake Total 503.107 800 165 Output Total 1445 577 0 Balance -941.893 223 165 Weight 92.1 kg Intake: IV 394 180 15 Lactated Ringers 1,000 ml 340 180 15 @ 20 mls/hr IV .Q24H [facility] Rx#:[id number] pressure bags 54 Intake, IV Titration 109.107 Amount Insulin Regular 100 unit 9.107 In Sodium Chloride 0.9% 100 ml @ Per Protocol IV .Q0M [facility] Rx#:[id number] Potassium Chloride 20 meq 100 In Water For Injection 1 100ml.bag @ 50 mls/hr IVPB ONCE [facility] Rx#: [id number] Oral 620 150 Output: Chest Tube Drainage 115 107 Chest Tube Right Pleural/ 115 107 Mediastinal Urine 1330 470 0 Other: Voiding Method Indwelling Catheter Indwelling Catheter # Voids 1 ABP, PAP, CO, CI - Last Documented Arterial Blood Pressure 168/70 Pulmonary Artery Pressure 33/13 Cardiac Output 3.9 Cardiac Index 2.1 - Exam Gen. appearance pleasant 69-year-old female patient, awake and alert and sitting up on the recliner. comfortable in no acute distress. Currently she is on oxygen at 3 L per minute nasal cannula with a pulse ox of 95%. Head exam was generally normal. There was no scleral icterus or corneal arcus. Mucous membranes were moist. Neck was supple and without jugular venous distension, thyromegaly, or carotid bruits. Carotids were easily palpable bilaterally. There was no adenopathy. Breath sounds on the lung examination is equal and symmetrical. Crackles in the bilateral posterior bases right greater than left The patient is a right pleural and mediastinal chest tubes. Output from the chest tube has continued and has no evidence of any air leak. Cardiac exam revealed the PMI to be normally situated and sized. The rhythm was regular and no extrasystoles were noted during several minutes of auscultation. The first and second heart sounds were normal and physiologic splitting of the second heart sound was noted. There were no murmurs, rubs, clicks, or gallops. Sternum stable clean and intact and the chest tubes are all in place Abdominal exam revealed normal bowel sounds. The abdomen was soft, non-tender, and without masses, organomegaly, or appreciable enlargement of the abdominal aorta. Examination of the extremities revealed easily palpable radial, femoral and pedal pulses. There was no cyanosis, clubbing or edema. Examination of the skin revealed no evidence of significant rashes, suspicious appearing nevi or other concerning lesions. Neurologic is awake and alert and oriented and there is no focal neurological d eficits. - Labs CBC & Chem 7: 12/28/19 04:31 12/28/19 04:31 Labs: Abnormal Lab Results - Last 24 Hours (Table) 12/27/19 12/27/19 12/27/19 Range/Units 10:09 11:18 12:00 RBC (3.80-5.40) m/uL Hgb (11.4-16.0) gm/dL Hct (34.0-46.0) % Sodium (137-145) mmol/L Carbon Dioxide (22-30) mmol/L BUN (7-17) mg/dL Glucose (74-99) mg/dL POC Glucose (mg/dL) 137 H 138 H 134 H (75-99) mg/dL Calcium (8.4-10.2) mg/dL AST (14-36) U/L ALT (4-34) U/L Alkaline Phosphatase (38-126) U/L Total Protein (6.3-8.2) g/dL Albumin (3.5-5.0) g/dL 12/27/19 12/27/19 12/27/19 Range/Units 14:09 17:01 20:10 RBC (3.80-5.40) m/uL Hgb (11.4-16.0) gm/dL Hct (34.0-46.0) % Sodium (137-145) mmol/L Carbon Dioxide (22-30) mmol/L BUN (7-17) mg/dL Glucose (74-99) mg/dL POC Glucose (mg/dL) 201 H 139 H 192 H (75-99) mg/dL Calcium (8.4-10.2) mg/dL AST (14-36) U/L ALT (4-34) U/L Alkaline Phosphatase (38-126) U/L Total Protein (6.3-8.2) g/dL Albumin (3.5-5.0) g/dL 12/28/19 12/28/19 12/28/19 Range/Units 04:31 04:31 06:32 RBC 2.99 L (3.80-5.40) m/uL Hgb 8.9 L (11.4-16.0) gm/dL Hct 27.0 L (34.0-46.0) % Sodium 134 L (137-145) mmol/L Carbon Dioxide 31 H (22-30) mmol/L BUN 26 H (7-17) mg/dL Glucose 124 H (74-99) mg/dL POC Glucose (mg/dL) 145 H (75-99) mg/dL Calcium 8.2 L (8.4-10.2) mg/dL AST 66 H (14-36) U/L ALT 39 H (4-34) U/L Alkaline Phosphatase 169 H (38-126) U/L Total Protein 5.2 L (6.3-8.2) g/dL Albumin 3.2 L (3.5-5.0) g/dL Assessment and Plan Assessment: 1 severe aortic stenosis post aortic valve replacement. The patient is postop day #3. On room air at 94%. 2 Post thoracotomy, extubated without any major difficulty currently on previous of oxygen by nasal cannula 3 hypertension currently off Cleviprex for blood pressure control. Hemodynamic parameters are all stable 4 Diabetes mellitus 5 hyperlipidemia 6 hypertension Plan The patient was seen and evaluated by Dr. Ybarra. Chest x-ray and labs reviewed Working well with the incentive spirometer Chest tubes remain in place for possible removal today. Increase activity as tolerated Transfer out of the ICU today. We'll continue to follow I, the cosigning physician, performed a history & physical examination of the patient. Lungs sounds with crackles in the bilateral posterior bases right greater than left Maintaining good O2 saturations in the 90s on room air. I discussed the assessment and plan of care with my nurse practitioner, Roslyn Swift. I attest to the above note as dictated by her.
[2019-12-28] MEDS ORDERED: FUROSEMIDE 10 MG/ML 4 ML VIAL IV STA (09:33)
[2019-12-28] MEDS ORDERED: POTASSIUM CHLORIDE ER 20 MEQ TAB.ER PO STA (09:34)
[2019-12-28] MEDS: ATORVASTATIN 40 MG TAB PO SCH (09:47)
[2019-12-28] MEDS: HEPARIN SODIUM,PORCINE 5,000 UNIT/ML 1 ML VIAL SQ SCH ×2 (09:47→15:50)
[2019-12-28] MEDS: CLOPIDOGREL 75 MG TAB PO SCH (09:47)
[2019-12-28] MEDS: ASPIRIN 325 MG TAB PO SCH (09:47)
[2019-12-28] MEDS: METOPROLOL TARTRATE 25 MG TAB PO SCH ×2 (09:55→20:25)
--- NOTE | 2019-12-28 11:26 | P.PN ---
Subjective Progress Note Date: 12/28/19 Principal diagnosis: Symptomatic severe aortic valve stenosis. Past medical history of hypertension, hyperlipidemia, diabetes mellitus type 2 and gastroesophageal reflux disease. POD #3 aortic valve replacement with a #21 mm Ross Inspiris bioprosthetic aortic valve, clip ligation of the left atrial appendage with a 35 mm Atriclip and an intraoperative transesophageal echocardiogram. Acute postoperative blood loss anemia, an expected outcome secondary to hemodilution and cardiopulmonary bypass. The patient is sitting up to the bedside chair in the intensive care unit. She is in no acute distress. She denies any complaints of pain or shortness of breath. Oxygen saturations are 95% on room air. She is achieving 500 mL on her incentive spirometry. A right pleural chest tube remains in place to low continuous wall suction -20 cm H2O. No air leak is present. Draining thin serosanguineous drainage with 60 mL output in the last 8 hours, and 140 mL output in the last 24 hours. Ventricular epicardial pacemaker wires remained in place and grounded. She reports she has been up ambulating in the intensive care unit hallway and has tolerated walking 3 times around the intensive care unit yesterday with minimal assistance from nursing staff. A chest x-ray was completed this morning which demonstrated some vascular congestion and pulmonary edema. Bedside telemetry showing normal sinus rhythm heart rate 82. Objective - Vital Signs Vital signs: Vital Signs Temp 98.4 F 12/28/19 08:00 Pulse 92 12/28/19 11:00 Resp 36 H 12/28/19 11:00 BP 119/74 12/28/19 11:00 Pulse Ox 91 L 12/28/19 11:00 Intake & Output 12/27/19 12/28/19 12/28/19 18:59 06:59 18:59 Intake Total 503.107 800 225 Output Total 1445 577 200 Balance -941.893 223 25 Weight 92.1 kg Intake: IV 394 180 75 Lactated Ringers 1,000 ml 340 180 75 @ 20 mls/hr IV .Q24H [facility] Rx#:[id number] pressure bags 54 Intake, IV Titration 109.107 Amount Insulin Regular 100 unit 9.107 In Sodium Chloride 0.9% 100 ml @ Per Protocol IV .Q0M [facility] Rx#:[id number] Potassium Chloride 20 meq 100 In Water For Injection 1 100ml.bag @ 50 mls/hr IVPB ONCE [facility] Rx#: [id number] Oral 620 150 Output: Chest Tube Drainage 115 107 Chest Tube Right Pleural/ 115 107 Mediastinal Urine 1330 470 200 Other: Voiding Method Indwelling Catheter Indwelling Catheter Indwelling Catheter # Voids 1 2 ABP, PAP, CO, CI - Last Documented Arterial Blood Pressure 168/70 Pulmonary Artery Pressure 33/13 Cardiac Output 3.9 Cardiac Index 2.1 - Constitutional General appearance: Present: cooperative, no acute distress, obese - Respiratory Details: Lung sounds with some scattered expiratory wheezes, few scattered crackles to bilateral bases. Respirations are symmetrical and nonlabored. Oxygen saturation is 95% on room air. Achieving 500 mL on her incentive spirometry. Right pleural chest tube remains in place to low continuous wall suction -20 cm H2O. No air leak is present. Draining thin serosanguineous drainage. - Cardiovascular Details: Regular rhythm and rate. S1 and S2 present, negative for S3, gallop or murmur. No edema present. Sternum is stable. Knee-high BRITNEY hose and sequential compression devices in place to bilateral lower extremities. Heart hugger is in place with surgical support bra. Ventricular epicardial pacemaker wires are in place and grounded. Bedside telemetry showing normal sinus rhythm heart rate 82. - Gastrointestinal Gastrointestinal Comment(s): Abdomen is soft, nontender and nondistended. Active bowel sounds present all 4 abdominal quadrants. No guarding or rigidity. Passing flatus. No bowel movement since surgery. Tolerating oral intake. - Genitourinary Genitourinary Comment(s): Voiding clear yellow urine. - Integumentary Integumentary Comment(s): Skin is warm and dry. No clubbing or cyanosis is present. No rash or abnormal pigmentation is present. Midline sternal incision is clean, dry and well approximated. - Neurologic Neurologic: Present: CNII-XII intact - Musculoskeletal Musculoskeletal: Present: gait normal, generalized weakness, strength equal bilaterally - Psychiatric Psychiatric: Present: A&O x's 3, appropriate affect, intact judgment & insight - Allied health notes Allied health notes reviewed: nursing - Labs CBC & Chem 7: 12/28/19 04:31 12/28/19 04:31 Labs: Abnormal Lab Results - Last 24 Hours (Table) 12/27/19 12/27/19 12/27/19 Range/Units 11:18 12:00 14:09 RBC (3.80-5.40) m/uL Hgb (11.4-16.0) gm/dL Hct (34.0-46.0) % Sodium (137-145) mmol/L Carbon Dioxide (22-30) mmol/L BUN (7-17) mg/dL Glucose (74-99) mg/dL POC Glucose (mg/dL) 138 H 134 H 201 H (75-99) mg/dL Calcium (8.4-10.2) mg/dL AST (14-36) U/L ALT (4-34) U/L Alkaline Phosphatase (38-126) U/L Total Protein (6.3-8.2) g/dL Albumin (3.5-5.0) g/dL 12/27/19 12/27/19 12/28/19 Range/Units 17:01 20:10 04:31 RBC 2.99 L (3.80-5.40) m/uL Hgb 8.9 L (11.4-16.0) gm/dL Hct 27.0 L (34.0-46.0) % Sodium (137-145) mmol/L Carbon Dioxide (22-30) mmol/L BUN (7-17) mg/dL Glucose (74-99) mg/dL POC Glucose (mg/dL) 139 H 192 H (75-99) mg/dL Calcium (8.4-10.2) mg/dL AST (14-36) U/L ALT (4-34) U/L Alkaline Phosphatase (38-126) U/L Total Protein (6.3-8.2) g/dL Albumin (3.5-5.0) g/dL 12/28/19 12/28/19 Range/Units 04:31 06:32 RBC (3.80-5.40) m/uL Hgb (11.4-16.0) gm/dL Hct (34.0-46.0) % Sodium 134 L (137-145) mmol/L Carbon Dioxide 31 H (22-30) mmol/L BUN 26 H (7-17) mg/dL Glucose 124 H (74-99) mg/dL POC Glucose (mg/dL) 145 H (75-99) mg/dL Calcium 8.2 L (8.4-10.2) mg/dL AST 66 H (14-36) U/L ALT 39 H (4-34) U/L Alkaline Phosphatase 169 H (38-126) U/L Total Protein 5.2 L (6.3-8.2) g/dL Albumin 3.2 L (3.5-5.0) g/dL - Imaging and Cardiology Chest x-ray: report reviewed, image reviewed Assessment and Plan Assessment: 1. Symptomatic severe aortic valve stenosis, status post aortic valve replacement 2. History of hypertension 3. History of hyperlipidemia 4. Diabetes mellitus type 2 with a preoperative hemoglobin A1c of 6.2% 5. Gastroesophageal reflux disease 6. Acute postoperative blood loss, and expected outcome secondary to hemod ilution and cardiopulmonary bypass Plan: 1. Continue to maximize medical therapy with aspirin, statin and beta zakia. Increase metoprolol tartrate as tolerated. 2. Encourage use of her incentive spirometry every hour while awake. 3. Wean oxygen as tolerated. Bronchodilator management per pulmonary/critical care medicine. 4. Continue to monitor daily labs and chest x-rays. Replace electrolytes per protocol. 5. Remove right pleural chest tube. 6. Remove ventricular epicardial pacemaker wires. Bed rest for 1 hour post pacemaker wire removal. 7. Continue GI and DVT prophylaxis. 8. Medical/diabetes management and other comorbidities per primary care servic e. 9. Give Lasix 40 mg IV 1 now and potassium chloride ER 20 mEq by mouth 1 now. 10. Increase activity as tolerated. Physical/occupational therapy and cardiac rehabilitation is following. 11. Orders have been placed for transferred to the cardiac stepdown unit. 12. Discharge planning in place, anticipate discharged home within the next 24- 48 hours. 13. More recommendations to follow based on patient's clinical course. Epicardial ventricular pacemaker wires removed without incident at 11:00 AM this morning. The patient will be on bed rest for 1 hour post pacemaker wire removal. Time with Patient: Greater than 30
--- NOTE | 2019-12-28 13:59 | P.PN ---
Subjective Progress Note Date: 12/28/19 Principal diagnosis: #1 severe aortic stenosis. #2 status post placement of new aortic valve. #3 diabetes mellitus #4 anemia associated with the surgery with the underlying thoracotomy. #5 mild obesity. #6 cardiac dysrhythmia on amiodarone pulse cardiac surgery. #7 GERD disease and post cardiac surgery, on pantoprazole. Distant progress note dictated by Dr. Ng date of service 12/28/2019. Patient is conscious alert oriented 3 seen in the ICU her at bedside. Patient feel comfortable and the second the chest tube has been removed the first one was removed yesterday. Patient denied any chest pain or discomfort or irregularities of the heart. Laboratory indicating Her white count WBC 8, hemoglobin 8.9, hematocrit 27, and the platelet count 167 is normal eyes. Chemistry the sodium 134, potassium 4, chloride 98, carbon dioxide 31 and her anion gap is 5 BUN 26 and creatinine 0.69 the EGFR for white female is 90. POC glucose monitor and her blood sugar fluctuating between [id number]. Calcium 8.2 and her AST 66 a LT 39 alk phos 169, protein 5.2 and albumin 3.2 Vital sign stable with the heart rate 75 and normal respiratory rate as well as blood pressure 119/74 with a mean pressure 89 and she has oxygen 2 L/m however the pulse ox on room air 92. On the physical examination: Conscious alert oriented 3 no acute respiratory distress or chest pain, her HEENT was negative neck was supple and oropharynx is normal able to eat. The chest is created bilateral no wheezes no rhonchi's and she has the brace for closure of the thoracotomy which she will be waiting for a while until the hearing of the sternum. Heart was regular sinus rhythm and currently she is on amiodarone with no dysrhythmia. Status post thoracotomy and aortic valve replacement. Abdomen is soft positive bowel sounds no organ enlargement extremities no edema and positive pulses. Assessment: Status post aortic valve replacement Diabetes mellitus well monitored and controlled and covered with insulin. Stable general condition and monitored with the critical care and pulmonary, cardiology, cardiothoracic surgery, and POC for sugar diabetes. Objective - Vital Signs Vital signs: Vital Signs Temp 98.4 F 12/28/19 08:00 Pulse 72 12/28/19 12:03 Resp 36 H 12/28/19 11:00 BP 119/74 12/28/19 11:00 Pulse Ox 92 L 12/28/19 11:27 Intake & Output 12/27/19 12/28/19 12/28/19 18:59 06:59 18:59 Intake Total 503.107 800 225 Output Total 1445 577 200 Balance -941.893 223 25 Weight 92.1 kg 92.1 kg Intake: IV 394 180 75 Lactated Ringers 1,000 ml 340 180 75 @ 20 mls/hr IV .Q24H [facility] Rx#:[id number] pressure bags 54 Intake, IV Titration 109.107 Amount Insulin Regular 100 unit 9.107 In Sodium Chloride 0.9% 100 ml @ Per Protocol IV .Q0M [facility] Rx#:[id number] Potassium Chloride 20 meq 100 In Water For Injection 1 100ml.bag @ 50 mls/hr IVPB [facility] Rx#: [id number] Oral 620 150 Output: Chest Tube Drainage 115 107 Chest Tube Right Pleural/ 115 107 Mediastinal Urine 1330 470 200 Other: Voiding Method Indwelling Catheter Indwelling Catheter Indwelling Catheter # Voids 1 2 ABP, PAP, CO, CI - Last Documented Arterial Blood Pressure 168/70 Pulmonary Artery Pressure 33/13 Cardiac Output 3.9 Cardiac Index 2.1 - Labs CBC & Chem 7: 12/28/19 04:31 12/28/19 04:31 Labs: Abnormal Lab Results - Last 24 Hours (Table) 12/27/19 12/27/19 12/27/19 Range/Units 14:09 17:01 20:10 RBC (3.80-5.40) m/uL Hgb (11.4-16.0) gm/dL Hct (34.0-46.0) % Sodium (137-145) mmol/L Carbon Dioxide (22-30) mmol/L BUN (7-17) mg/dL Glucose (74-99) mg/dL POC Glucose (mg/dL) 201 H 139 H 192 H (75-99) mg/dL Calcium (8.4-10.2) mg/dL AST (14-36) U/L ALT (4-34) U/L Alkaline Phosphatase (38-126) U/L Total Protein (6.3-8.2) g/dL Albumin (3.5-5.0) g/dL 02/22/20 02/22/20 02/22/20 Range/Units 04:31 04:31 06:32 RBC 2.99 L (3.80-5.40) m/uL Hgb 8.9 L (11.4-16.0) gm/dL Hct 27.0 L (34.0-46.0) % Sodium 134 L (137-145) mmol/L Carbon Dioxide 31 H (22-30) mmol/L BUN 26 H (7-17) mg/dL Glucose 124 H (74-99) mg/dL POC Glucose (mg/dL) 145 H (75-99) mg/dL Calcium 8.2 L (8.4-10.2) mg/dL AST 66 H (14-36) U/L ALT 39 H (4-34) U/L Alkaline Phosphatase 169 H (38-126) U/L Total Protein 5.2 L (6.3-8.2) g/dL Albumin 3.2 L (3.5-5.0) g/dL
[2019-12-28 18:32] LABS: Glucose,Whole Blood 205 mg/dL (75-99)
[2019-12-28 20:25] LABS: Glucose,Whole Blood 137 mg/dL (75-99)
[2019-12-28] MEDS: SENNOSIDES-DOCUSATE SODIUM 1 EACH TAB PO SCH (20:25)
[2019-12-29] MEDS: KETOROLAC 30 MG/ML 1 ML VIAL IVP SCH ×4 (00:28→18:58)
[2019-12-29] MEDS: HEPARIN SODIUM,PORCINE 5,000 UNIT/ML 1 ML VIAL SQ SCH ×4 (00:29→23:15)
[2019-12-29 04:29] LABS: HCT 27.4 % (34.0-46.0); MCH 29.9 pg (25.0-35.0); MCHC 32.9 g/dL (31.0-37.0); MCV 90.8 fL (80.0-100.0); Mean Platelet Volume 7.2; Platelet Count 243 k/uL (150-450); RBC 3.02 m/uL (3.80-5.40); RDW 13.6 % (11.5-15.5); WBC 7.9 k/uL (3.8-10.6)
[2019-12-29 04:43] LABS: African American GFR (CKD) >90 (>60 ml/min/1.73 sqM); Anion Gap 8 mmol/L; Blood Urea Nitrogen 25 mg/dL (7-17); Calcium 8.5 mg/dL (8.4-10.2); Carbon Dioxide 29 mmol/L (22-30); Chloride 99 mmol/L (98-107); Glucose 146 mg/dL (74-99); Non-African American GFR(CKD) 85 (>60 ml/min/1.73 sqM); Potassium 3.8 mmol/L (3.5-5.1); Sodium 136 mmol/L (137-145)
[2019-12-29] MEDS ORDERED: POTASSIUM CHLORIDE ER 20 MEQ TAB.ER PO SCH (06:00)
[2019-12-29] MEDS: PANTOPRAZOLE 40 MG TABLET PO SCH (06:24)
--- NOTE | 2019-12-29 06:43 | XR ---
EXAMINATION TYPE: XR chest 2V DATE OF EXAM: 12/29/2019 HISTORY: Postoperative cardiac surgery. REFERENCE: Previous study dated 12/28/2019. FINDINGS: There has been a midline sternotomy. The heart is enlarged. The patient's right pleural drain has been removed. I do not see definite pneu mothorax. There is some atelectasis in the right midlung. There is a small left effusion. There is le ft basilar airspace disease. There is a small amount of right basilar airspace disease. IMPRESSION: CONTINUING POSTOPERATIVE CHANGE.
[2019-12-29 06:46] LABS: Glucose,Whole Blood 139 mg/dL (75-99)
[2019-12-29] MEDS: INSULIN ASPART (NovoLOG) 100 UNIT/ML VIAL SQ SCH ×4 (06:54→20:27)
[2019-12-29] MEDS: IPRATROPIUM-ALBUTEROL 3 ML NEB INHALATION SCH ×4 (07:50→19:41)
[2019-12-29] MEDS ORDERED: FUROSEMIDE 10 MG/ML 4 ML VIAL IV STA (08:00)
[2019-12-29] MEDS ORDERED: POTASSIUM CHLORIDE ER 20 MEQ TAB.ER PO STA (08:01)
--- NOTE | 2019-12-29 08:15 | P.PN ---
Subjective Progress Note Date: 12/29/19 Principal diagnosis: Status post aVR This is a very pleasant 69-year-old female patient who sees Dr. Enrique as an outpatient who underwent yesterday aortic valve replacement using bioprosthetic valve for severe symptomatic aortic stenosis. The patient was seen today, 12/29/2019. She still have some shortness of breath mostly with laying flat in bed. The chest x-ray was reviewed today and continues to show finding of fluid overload. She was given Lasix dose earlier today. Otherwise she continues to be on dual antiplatelet, metoprolol, and statin. She continues to maintain normal sinus mechanism. Objective - Vital Signs Vital signs: Vital Signs Temp 98.0 F 12/29/19 04:00 Pulse 100 12/29/19 08:05 Resp 34 H 12/29/19 07:00 BP 103/63 12/29/19 07:00 Pulse Ox 95 12/29/19 07:00 Intake & Output 12/28/19 12/29/19 12/29/19 18:59 06:59 18:59 Intake Total 270 10 Output Total 200 700 350 Balance 70 -690 -350 Weight 92.1 kg 92.6 kg Intake: IV 120 10 Lactated Ringers 1,000 ml 120 10 @ 20 mls/hr IV .Q24H [facility] Rx#:[id number] Oral 150 Output: Urine 200 700 350 Other: Voiding Method Indwelling Catheter Indwelling Catheter # Voids 2 ABP, PAP, CO, CI - Last Documented Arterial Blood Pressure 168/70 Pulmonary Artery Pressure 33/13 Cardiac Output 3.9 Cardiac Index 2.1 - Constitutional General appearance: Present: no acute distress - Respiratory Respiratory: bilateral: CTA - Cardiovascular Rhythm: regular Heart sounds: normal: S1, S2 - Labs CBC & Chem 7: 12/29/19 04:03 12/29/19 04:03 Labs: Abnormal Lab Results - Last 24 Hours (Table) 12/28/19 12/28/19 12/29/19 Range/Units 18:31 20:24 04:03 RBC 3.02 L (3.80-5.40) m/uL Hgb 9.0 L (11.4-16.0) gm/dL Hct 27.4 L (34.0-46.0) % Sodium (137-145) mmol/L BUN (7-17) mg/dL Glucose (74-99) mg/dL POC Glucose (mg/dL) 205 H 137 H (75-99) mg/dL 12/29/19 12/29/19 Range/Units 04:03 06:45 RBC (3.80-5.40) m/uL Hgb (11.4-16.0) gm/dL Hct (34.0-46.0) % Sodium 136 L (137-145) mmol/L BUN 25 H (7-17) mg/dL Glucose 146 H (74-99) mg/dL POC Glucose (mg/dL) 139 H (75-99) mg/dL Assessment and Plan Assessment: Assessment #1 status post aortic valve replacement #2 diabetes type 2 #3 hypertension #4 dyslipidemia Plan #1 continue the current medical regimen including dual antiplatelet therapy along with a statin #2 the patient was given a dose of Lasix IV earlier today
--- NOTE | 2019-12-29 09:21 | P.PN ---
Subjective Progress Note Date: 12/29/19 The patient is seen today 12/29/2019 and follow-up in the intensive care unit. This is postoperative day #4 following aortic valve replacement and atrial appendage clipping. She is doing very well today. Up in a chair at the bedside. Awake and alert in no acute distress. There was some concern with s ome wheezing earlier this morning. Her lungs are clear with some crackles in the posterior bases. She received additional Lasix today. Chest x-ray was reviewed. Labs reviewed. She remains on bronchodilators. She is working with the incentive spirometer. Needs increased encouragement regarding cough and is breathing exercises. White count 7.9. Hemoglobin 9.0. Sodium 136. Potassium 3.8. Creatinine 0.73. She is given additional Lasix today. Remains on DuoNeb inhalations. Objective - Vital Signs Vital signs: Vital Signs Temp 98.0 F 12/29/19 04:00 Pulse 100 12/29/19 08:05 Resp 34 H 12/29/19 07:00 BP 103/63 12/29/19 07:00 Pulse Ox 95 12/29/19 07:00 Intake & Output 12/28/19 12/29/19 12/29/19 18:59 06:59 18:59 Intake Total 270 10 Output Total 200 700 350 Balance 70 -690 -350 Weight 92.1 kg 92.6 kg Intake: IV 120 10 Lactated Ringers 1,000 ml 120 10 @ 20 mls/hr IV .Q24H [facility] Rx#:[id number] Oral 150 Output: Urine 200 700 350 Other: Voiding Method Indwelling Catheter Indwelling Catheter # Voids 2 ABP, PAP, CO, CI - Last Documented Arterial Blood Pressure 168/70 Pulmonary Artery Pressure 33/13 Cardiac Output 3.9 Cardiac Index 2.1 - Exam Gen. appearance pleasant 69-year-old female patient, awake and alert and sitting up on the recliner. comfortable in no acute distress. On room air. Head exam was generally normal. There was no scleral icterus or corneal arcus. Mucous membranes were moist. Neck was supple and without jugular venous distension, thyromegaly, or carotid bruits. Carotids were easily palpable bilaterally. There was no adenopathy. Breath sounds on the lung examination is equal and symmetrical. Crackles in the bilateral posterior bases right greater than left Cardiac exam revealed the PMI to be normally situated and sized. The rhythm was regular and no extrasystoles were noted during several minutes of auscultation. The first and second heart sounds were normal and physiologic splitting of the second heart sound was noted. There were no murmurs, rubs, clicks, or gallops. Sternum stable clean and intact and the chest tubes are all in place Abdominal exam revealed normal bowel sounds. The abdomen was soft, non-tender, and without masses, organomegaly, or appreciable enlargement of the abdominal aorta. Examination of the extremities revealed easily palpable radial, femoral and pedal pulses. There was no cyanosis, clubbing or edema. Examination of the skin revealed no evidence of significant rashes, suspicious appearing nevi or other concerning lesions. Neurologic is awake and alert and oriented and there is no focal neurological deficits. - Labs CBC & Chem 7: 12/29/19 04:03 12/29/19 04:03 Labs: Abnormal Lab Results - Last 24 Hours (Table) 12/28/19 12/28/19 12/29/19 Range/Units 18:31 20:24 04:03 RBC 3.02 L (3.80-5.40) m/uL Hgb 9.0 L (11.4-16.0) gm/dL Hct 27.4 L (34.0-46.0) % Sodium (137-145) mmol/L BUN (7-17) mg/dL Glucose (74-99) mg/dL POC Glucose (mg/dL) 205 H 137 H (75-99) mg/dL 12/29/19 12/29/19 Range/Units 04:03 06:45 RBC (3.80-5.40) m/uL Hgb (11.4-16.0) gm/dL Hct (34.0-46.0) % Sodium 136 L (137-145) mmol/L BUN 25 H (7-17) mg/dL Glucose 146 H (74-99) mg/dL POC Glucose (mg/dL) 139 H (75-99) mg/dL Assessment and Plan Assessment: 1 severe aortic stenosis post aortic valve replacement. The patient is postop day #4. On room air. 2 Post thoracotomy, extubated without any major difficulty currently on previous of oxygen by nasal cannula 3 hypertension currently off Cleviprex for blood pressure control. Hemodynamic parameters are all stable 4 Diabetes mellitus 5 hyperlipidemia 6 hypertension Plan The patient was seen and evaluated by Dr. Ybarra. Chest x-ray and labs reviewed Additional Lasix IV today. Increase activity as tolerated Remains a selective care unit overflow. I, the cosigning physician, performed a history & physical examination of the patient. Lungs sounds with crackles in the bilateral posterior bases. Maintaining good O2 saturations in the 90s on room air. I discussed the assessment and plan of care with my nurse practitioner, Roslyn Swift. I attest to the above note as dictated by her.
--- NOTE | 2019-12-29 09:37 | P.PN ---
Subjective Progress Note Date: 12/29/19 Principal diagnosis: Symptomatic severe aortic valve stenosis. Past medical history of hypertension, hyperlipidemia, diabetes mellitus type 2 diet-controlled and gastroesophageal reflux disease. POD #4 aortic valve replacement with a #21 mm Ross Inspiris bioprosthetic aortic valve, clip ligation of the left atrial appendage with a 35 mm Atriclip and an intraoperative transesophageal echocardiogram. Acute postoperative blood loss anemia, an expected outcome secondary to hemodilution and cardiopulmonary bypass. The patient is sitting up to the bedside chair in the intensive care unit. She is in no acute distress. She denies any complaints of pain or shortness of br eath, although is complaining of wheezing. Oxygen saturations are 95% on room air. She is achieving 500-750 mL on her incentive spirometry. Ventricular epicardial pacemaker wires and her right pleural chest tube were removed without incident yesterday. Bedside telemetry showing normal sinus rhythm heart rate 95 BPM. She reports she ambulated in the intensive care unit already 2 yesterday with minimal assistance from nursing staff and her . She is tolerating oral intake and reports her bowels moved yesterday. She remains afebrile the last 24 hours. Transfer orders to the cardiac stepdown unit were placed yesterday and she is waiting for a bed on the cardiac stepdown unit. Objective - Vital Signs Vital signs: Vital Signs Temp 98.0 F 12/29/19 04:00 Pulse 100 12/29/19 08:05 Resp 34 H 12/29/19 07:00 BP 103/63 12/29/19 07:00 Pulse Ox 95 12/29/19 07:00 Intake & Output 12/28/19 12/29/19 12/29/19 18:59 06:59 18:59 Intake Total 270 10 Output Total 200 700 350 Balance 70 -690 -350 Weight 92.1 kg 92.6 kg Intake: IV 120 10 Lactated Ringers 1,000 ml 120 10 @ 20 mls/hr IV .Q24H [facility] Rx#:[id number] Oral 150 Output: Urine 200 700 350 Other: Voiding Method Indwelling Catheter Indwelling Catheter # Voids 2 ABP, PAP, CO, CI - Last Documented Arterial Blood Pressure 168/70 Pulmonary Artery Pressure 33/13 Cardiac Output 3.9 Cardiac Index 2.1 - Constitutional General appearance: Present: cooperative, no acute distress, obese - Respiratory Details: Lung sounds with scattered expiratory wheezes, diminished bilateral bases. Respirations are symmetrical and nonlabored. Oxygen saturation is 95% on room air. Achieving 500-750 mL on her incentive spirometry. - Cardiovascular Details: Regular rhythm and rate. S1 and S2 present, negative for S3, gallop or murmur. Sternum is stable. Heart hugger and surgical support bra are in place. Bedside telemetry showing normal sinus rhythm heart rate 95. Knee-high BRITNEY hose and sequential compression devices in place to bilateral lower extremities. No edema present. - Gastrointestinal Gastrointestinal Comment(s): Abdomen is soft, nontender and nondistended. Active bowel sounds present in all 4 abdominal quadrants. No guarding or rigidity. Tolerating oral intake. Bowel movement yesterday. - Genitourinary Genitourinary Comment(s): Voiding clear marlo urine. - Integumentary Integumentary Comment(s): Skin is warm and dry. No clubbing or cyanosis is present. Midline sternal inc ision is clean, dry and approximated. No drainage or redness is present. - Neurologic Neurologic: Present: CNII-XII intact - Musculoskeletal Musculoskeletal: Present: gait normal, strength equal bilaterally - Psychiatric Psychiatric: Present: A&O x's 3, appropriate affect, intact judgment & insight - Allied health notes Allied health notes reviewed: nursing - Labs CBC & Chem 7: 12/29/19 04:03 12/29/19 04:03 Labs: Abnormal Lab Results - Last 24 Hours (Table) 12/28/19 12/28/19 12/29/19 Range/Units 18:31 20:24 04:03 RBC 3.02 L (3.80-5.40) m/uL Hgb 9.0 L (11.4-16.0) gm/dL Hct 27.4 L (34.0-46.0) % Sodium (137-145) mmol/L BUN (7-17) mg/dL Glucose (74-99) mg/dL POC Glucose (mg/dL) 205 H 137 H (75-99) mg/dL 12/29/19 12/29/19 Range/Units 04:03 06:45 RBC (3.80-5.40) m/uL Hgb (11.4-16.0) gm/dL Hct (34.0-46.0) % Sodium 136 L (137-145) mmol/L BUN 25 H (7-17) mg/dL Glucose 146 H (74-99) mg/dL POC Glucose (mg/dL) 139 H (75-99) mg/dL - Imaging and Cardiology Chest x-ray: report reviewed, image reviewed Assessment and Plan Assessment: 1. Symptomatic severe aortic valve stenosis, status post aortic valve replacement 2. History of hypertension 3. History of hyperlipidemia 4. Diabetes mellitus type 2 diet-controlled with a preoperative hemoglobin A1c of 6.2% 5. Gastroesophageal reflux disease 6. Acute postoperative blood loss, and expected outcome secondary to hemodiluti on and cardiopulmonary bypass Plan: 1. Continue to maximize medical therapy with aspirin, statin and beta zakia. Increase metoprolol tartrate as tolerated. 2. Encourage use of her incentive spirometry every hour while awake. 3. Bronchodilator management per pulmonary/critical care medicine. 4. Continue to monitor daily labs and chest x-rays. Replace electrolytes per protocol. 5. Give Lasix 40 mg IV 1 now and at 4 PM today and potassium chloride ER 20 mEq by mouth 1 now and at 4 PM today. 6. Continue GI and DVT prophylaxis. 7. Medical/diabetes management and other comorbidities per primary care service. 8. Transferred to the cardiac stepdown unit when bed available. 9. Increase activity as tolerated. Physical/occupational therapy and cardiac rehabilitation is following. 10. Discharge planning in place, anticipate discharged home within the next 24 hours. 11. More recommendations to follow based on patient's clinical course. Time with Patient: Greater than 30
[2019-12-29] MEDS: ASPIRIN 325 MG TAB PO SCH (10:02)
[2019-12-29] MEDS: CLOPIDOGREL 75 MG TAB PO SCH (10:03)
[2019-12-29] MEDS: METOPROLOL TARTRATE 25 MG TAB PO SCH ×2 (10:03→20:28)
[2019-12-29] MEDS: ATORVASTATIN 40 MG TAB PO SCH (10:03)
[2019-12-29 12:06] LABS: Glucose,Whole Blood 126 mg/dL (75-99)
--- NOTE | 2019-12-29 14:38 | P.PN ---
Subjective Progress Note Date: 12/29/19 (S/P aortic valve replacement) Progress note date of service 12/29/[address] Ng Patient seen and evaluated in ICU, she is actually downgraded and she is subtotally and telemetry floor however there is no bed is available. Patient probably will be discharged within 24-48 hour by the thoracic/vascular surgeon. Patient on discussion she was conscious alert oriented 3 her at bedside Patient able to ambulate and the they give her continuation of the Lasix and the she is urinating is no problem post total. Temperature 97.5 F oral her pulse 78/m regular sinus and her respiratory rate today was 15/m however when she started to walk the respiratory and the heart rate increased. Blood pressure 134/70 and the pulse ox 95 on room air. She will getting the chest to brace the sternotomy And thoracic surgery for the placement of the aortic valve. Line on exam: Head was normocephalic and atraumatic pupils equal reactive oropharynx was normal natural teeth and neck was supple no JVD no thyromegaly no lymphadenopathy trachea midline. No chest was clear to auscultation percussion and the heart was regular sinus rhythm and the abdomen obese positive bowel sound and extremities no edema and good pulses. Patient on obese side with a BMI of 38.6 kg/m. And current medication in the hospital ICU: She is on: #1 Tylenol tablet 650 mg every 6 hour when necessary for fever or and pain #2 inhalation albuterol ipratropium DuoNeb 0.5 mg3 mg3 mL ampoule and every 2 hour when necessary. And as well as the DuoNeb 4 times a day. #3 albuterol and HCl 360 mg IV for febrile and flutter 1 mg/m infusion. However that will be changed to oral on discharge by cardiology. #4 aspirin 325 mg daily. #5 atorvastatin 40 mg by mouth daily #6 furosemide 40 mg IV when necessary. #7 still on heparin subcu every 8 hour period 5000 unit subcu #8 ketorolac/Toradol 15 mg IV push every 6 hours when necessary #9 magnesium replacement #10 metoprolol tartrate 25 mg twice a day #11 Zofran 4 mg IV every 6 hours #12 pantoprazole 40 mg before meals breakfast, sennosides docusate 8 stool softener 2 at bedtime, potassium and phosphorus replacement on a when necessary basis depend on electrolyte imbalance. On examination: Conscious alert oriented 3 no acute respiratory distress and no severe chest pain Patient stable clinically. Blood sugar has been monitored with POC coverage with insulin subcu to scale. Patient stable. Status post aortic valve replacement secondary to tight aortic stenosis. Diabetes mellitus type 2 insulin-dependent. Hypertension with hypertensive heart disease. Plan: Continue current treatment no changes and will follow Objective - Vital Signs Vital signs: Vital Signs Temp 97.5 F L 12/29/19 12:00 Pulse 71 12/29/19 12:00 Resp 15 12/29/19 12:00 BP 134/70 12/29/19 12:00 Pulse Ox 95 12/29/19 12:00 Intake & Output 12/28/19 12/29/19 12/29/19 18:59 06:59 18:59 Intake Total 270 10 Output Total 200 700 350 Balance 70 -690 -350 Weight 92.1 kg 92.6 kg Intake: IV 120 10 Lactated Ringers 1,000 ml 120 10 @ 20 mls/hr IV .Q24H [facility] Rx#:[id number] Oral 150 Output: Urine 200 700 350 Other: Voiding Method Indwelling Catheter Indwelling Catheter Indwelling Catheter # Voids 2 ABP, PAP, CO, CI - Last Documented Arterial Blood Pressure 168/70 Pulmonary Artery Pressure 33/13 Cardiac Output 3.9 Cardiac Index 2.1 - Labs CBC & Chem 7: 12/29/19 04:03 12/29/19 04:03 Labs: Abnormal Lab Results - Last 24 Hours (Table) 12/28/19 12/28/19 12/29/19 Range/Units 18:31 20:24 04:03 RBC 3.02 L (3.80-5.40) m/uL Hgb 9.0 L (11.4-16.0) gm/dL Hct 27.4 L (34.0-46.0) % Sodium (137-145) mmol/L BUN (7-17) mg/dL Glucose (74-99) mg/dL POC Glucose (mg/dL) 205 H 137 H (75-99) mg/dL 12/29/19 12/29/19 12/29/19 Range/Units 04:03 06:45 12:05 RBC (3.80-5.40) m/uL Hgb (11.4-16.0) gm/dL Hct (34.0-46.0) % Sodium 136 L (137-145) mmol/L BUN 25 H (7-17) mg/dL Glucose 146 H (74-99) mg/dL POC Glucose (mg/dL) 139 H 126 H (75-99) mg/dL
[2019-12-29] MEDS ORDERED: POTASSIUM CHLORIDE ER 20 MEQ TAB.ER PO ONE (16:00)
[2019-12-29] MEDS ORDERED: FUROSEMIDE 10 MG/ML 4 ML VIAL IV ONE (16:00)
[2019-12-29] MEDS: ACETAMINOPHEN TAB 325 MG TAB PO PRN (16:07)
[2019-12-29 16:55] LABS: Glucose,Whole Blood 133 mg/dL (75-99)
[2019-12-29 20:25] LABS: Glucose,Whole Blood 150 mg/dL (75-99)
[2019-12-29] MEDS: SENNOSIDES-DOCUSATE SODIUM 1 EACH TAB PO SCH (20:28)
[2019-12-29 23:46] VITALS: RESP 18
[2019-12-30] MEDS: ACETAMINOPHEN TAB 325 MG TAB PO PRN ×3 (03:12→16:44)
[2019-12-30] MEDS: PANTOPRAZOLE 40 MG TABLET PO SCH (06:12)
[2019-12-30] MEDS: INSULIN ASPART (NovoLOG) 100 UNIT/ML VIAL SQ SCH ×2 (06:18→12:47)
[2019-12-30 06:22] LABS: Glucose,Whole Blood 137 mg/dL (75-99)
[2019-12-30 06:51] LABS: HCT 26.3 % (34.0-46.0); HGB 8.7 gm/dL (11.4-16.0); MCH 29.4 pg (25.0-35.0); MCV 89.2 fL (80.0-100.0); Mean Platelet Volume 6.7; Platelet Count 320 k/uL (150-450); RBC 2.95 m/uL (3.80-5.40); RDW 13.5 % (11.5-15.5); WBC 7.4 k/uL (3.8-10.6)
[2019-12-30 07:11] LABS: African American GFR (CKD) >90 (>60 ml/min/1.73 sqM); Anion Gap 9 mmol/L; Blood Urea Nitrogen 26 mg/dL (7-17); Calcium 8.5 mg/dL (8.4-10.2); Carbon Dioxide 28 mmol/L (22-30); Chloride 100 mmol/L (98-107); Glucose 121 mg/dL (74-99); Non-African American GFR(CKD) 87 (>60 ml/min/1.73 sqM); Potassium 4.1 mmol/L (3.5-5.1); Sodium 137 mmol/L (137-145)
[2019-12-30] MEDS ORDERED: POTASSIUM CHLORIDE ER 20 MEQ TAB.ER PO STA (07:47)
[2019-12-30] MEDS: HEPARIN SODIUM,PORCINE 5,000 UNIT/ML 1 ML VIAL SQ SCH ×2 (08:08→16:47)
[2019-12-30] MEDS: ATORVASTATIN 40 MG TAB PO SCH (08:09)
[2019-12-30] MEDS: METOPROLOL TARTRATE 25 MG TAB PO SCH (08:09)
[2019-12-30] MEDS: CLOPIDOGREL 75 MG TAB PO SCH (08:09)
[2019-12-30] MEDS: ASPIRIN 325 MG TAB PO SCH (08:09)
[2019-12-30] MEDS: FUROSEMIDE 10 MG/ML 4 ML VIAL IV STA ×2 (08:14→08:24)
[2019-12-30] MEDS ORDERED: FUROSEMIDE 40 MG TAB PO STA (08:23)
--- NOTE | 2019-12-30 08:25 | XR ---
EXAMINATION TYPE: XR chest 1V portable DATE OF EXAM: 12/30/2019 COMPARISON: Prior chest x-ray 12/29/2019 HISTORY: Postop aortic valve replacement TECHNIQUE: Single frontal view of the chest is obtained. FINDINGS: Patient is post median sternotomy, aortic valve replacement, atrial appendage clipping najma cement. The heart remains enlarged. Lung volumes are low and the patient is rotated. Subsegmental bas ilar atelectatic changes are present. Is no evident pneumothorax. Possible calcified left apical gran uloma. There are overlying cardiac leads. Interstitium is increased. IMPRESSION: Expiratory rotated exam. There may be a component of volume overload, interstitial edema . Subsegmental basilar atelectatic changes, cardiomegaly.
[2019-12-30] MEDS: IPRATROPIUM-ALBUTEROL 3 ML NEB INHALATION SCH ×3 (08:36→16:26)
[2019-12-30] MEDS ORDERED: LISINOPRIL 5 MG TAB PO SCH (09:00)
--- NOTE | 2019-12-30 09:34 | CDI ---
Documentation Clarification Form Date: 12/30/2019 09:21:00 AM From: Aminta Benitez CCS, CCDS Admit Date: 12/25/2019 07:28:00 AM Patient Name: Doris Rabago Visit Number: [id number] Discharge Date: ATTENTION: The Clinical Documentation Specialists (CDI) and [facility] Coding Staff appreciate your assistance in clarifying documentation. Please respond to the clarification below the line at the bottom and electronically sign. The CDI & [facility] Coding staff will review the response and follow-up if needed. Please note: Queries are made part of the Legal Health Record. If you have any questions, please contact the author of this message via ITS. Dr. Oliver Fuller: Per the 12/28 progress note: "The chest x-ray was reviewed today and showed a component of heart failure/fluid overload." Per the 12/28 CXR: Worsening changes of heart failure. History/Risk Factors: Severe aortic stenosis, Hypertension, DM II, Hyperlipidemia, Hypertension, Obesity & BMI 37.4. Clinical Indicators: Patent was admitted on 12/25 for an elective AVR. Per the CXR on 12/28, patient developed worsening changes of heart failure, IV Lasix given. VS 12/25 Postop: T 98.5, P 71, R 16, BP 167/77^, PO 100 on vent, extubated same day. BNP: not done this admission. 10/17 KESHAV: Moderate degree of left ventricular hypertrophy with normal left ventricular systolic function. Moderate degree of MR & TR. Severe aortic stenosis. Most recent ECHO: 12/04/2014: Mild pulmonary hypertension, systolic normal w/EF 55-60%. Chest X Ray: as above Treatment 12/28: IV Lasix 40 mg x2, 12/29: IV Lasix 40 mg x2, 12/30 IV Lasix 40 g x2. In your professional opinion, can you please clarify the acuity and type of CHF if known? Fluid overload Heart failure ruled out Systolic Heart Failure: o Acute o Chronic o Acute on Chronic Diastolic Heart Failure: o Acute o Chronic o Acute on Chronic Systolic & Diastolic Heart Failure: o Acute o Chronic o Acute on Chronic Heart Failure Unable to Determine Other, please specify (Last Revision: February 2018) Acute on chronic diastolic heart failure MTDD
--- NOTE | 2019-12-30 11:09 | P.PN ---
Subjective Progress Note Date: 12/30/19 12/30/2019 patient seen in follow-up on selective care unit. She is awake and alert, oriented 3, in no acute distress, she is on room air pulse ox of 99%, hemodynamically stable, no fever chills, her pain is under good control, chest tubes have been discontinued, Ivy catheter is out, patient has been ambulating, tolerating activity very well, denies any shortness of breath, today's chest x-ray has been reviewed showing a component of fluid overload, and interstitial edema with subsegmental basilar atelectatic changes. She was given an additional dose of oral Lasix [address] surgery. Patient did receive a dose of Lasix yesterday as well and patient is maintaining negative fluid balance over the last 24 hours she is in -620 ML. His lab work has been reviewed showing white blood cell count of 7.4, hemoglobin of 8.7, platelet count of 320, electrolyte within normal limits, BUN of 26 creatinine 0.72. Objective - Vital Signs Vital signs: Vital Signs Temp 97.9 F 12/30/19 08:00 Pulse 88 12/30/19 08:49 Resp 18 12/30/19 08:00 BP 147/65 12/30/19 08:00 Pulse Ox 99 12/30/19 08:00 Intake & Output 12/29/19 12/30/19 12/30/19 18:59 06:59 18:59 Intake Total 10 Output Total 450 Balance -440 Weight 89.8 kg Intake: IV 10 Lactated Ringers 1,000 ml 10 @ 20 mls/hr IV .Q24H [facility] Rx#:[id number] Output: Urine 450 Other: Voiding Method Indwelling Catheter Toilet ABP, PAP, CO, CI - Last Documented Arterial Blood Pressure 168/70 Pulmonary Artery Pressure 33/13 Cardiac Output 3.9 Cardiac Index 2.1 - Exam GENERAL EXAM: Alert, very pleasant, 69-year-old white female, on room air, with a pulse ox of 99% comfortable in no apparent distress. HEAD: Normocephalic/atraumatic. EYES: Normal reaction of pupils, equal size. Conjunctiva pink, sclera white. NOSE: Clear with pink turbinates. THROAT: No erythema or exudates. NECK: No masses, no JVD, no thyroid enlargement, no adenopathy. CHEST: No chest wall deformity. Symmetrical expansion. Midsternal incision is clean dry and intact, chest tube sites are clean dry and intact LUNGS: Equal air entry with no crackles, wheeze, rhonchi or dullness. CVS: Regular rate and rhythm, normal S1 and S2, no gallops, no murmurs, no rubs ABDOMEN: Soft, nontender. No hepatosplenomegaly, normal bowel sounds, no guarding or rigidity. EXTREMITIES: No clubbing, no edema, no cyanosis, 2+ pulses and upper and lower extremities. SCDs are present on bilateral lower extremities MUSCULOSKELETAL: Muscle strength and tone normal. SPINE: No scoliosis or deformity SKIN: No rashes CENTRAL NERVOUS SYSTEM: Alert and oriented -3. No focal deficits, tone is normal in all 4 extremities. PSYCHIATRIC: Alert and oriented -3. Appropriate affect. Intact judgment and insight. - Labs CBC & Chem 7: 12/30/19 06:06 12/30/19 06:06 Labs: Abnormal Lab Results - Last 24 Hours (Table) 12/29/19 12/29/19 12/29/19 Range/Units 12:05 16:53 20:24 RBC (3.80-5.40) m/uL Hgb (11.4-16.0) gm/dL Hct (34.0-46.0) % BUN (7-17) mg/dL Glucose (74-99) mg/dL POC Glucose (mg/dL) 126 H 133 H 150 H (75-99) mg/dL 12/30/19 12/30/19 12/30/19 Range/Units 06:06 06:06 06:06 RBC 2.95 L (3.80-5.40) m/uL Hgb 8.7 L (11.4-16.0) gm/dL Hct 26.3 L (34.0-46.0) % BUN 26 H (7-17) mg/dL Glucose 121 H (74-99) mg/dL POC Glucose (mg/dL) 137 H (75-99) mg/dL Assessment and Plan Plan: Assessment: 1 severe aortic stenosis post aortic valve replacement. The patient is postop day #5. On room air. 2 Post thoracotomy, extubated without any major difficulty currently on previous of oxygen by nasal cannula 3 hypertension currently off Cleviprex for blood pressure control. Hemodynamic parameters are all stable 4 Diabetes mellitus 5 hyperlipidemia 6 hypertension Plan: Patient is doing well, clinically stable, tolerating ambulation, she is on room air, she received additional dose of Lasix today, she is maintaining negative fluid balance, no acute events overnight. His chest x-ray has been reviewed still showing some fluid overload and interstitial edema, patient is maintaining stable oxygenation on room air, no specific complaints, working on incentive spirometer, anticipate discharge home this afternoon, with outpatient follow-up with Dr. Ybarra in the office in 7-10 days I performed a history & physical examination of the patient and discussed their management with my nurse practitioner, Aicha Buck. I reviewed the nurse practitioner's note and agree with the documented findings and plan of care. Lung sounds are positive for diminished breath sounds. The findings and the impression was discussed with the patient. I attest to the documentation by the nurse practitioner. Time with Patient: Less than 30
[2019-12-30 11:34] VITALS: BP 108/53; TEMP 98.1
[2019-12-30 12:29] VITALS: PULSE 79
[2019-12-30 12:44] LABS: Glucose,Whole Blood 108 mg/dL (75-99)
--- NOTE | 2019-12-30 13:18 | P.PN ---
Subjective Progress Note Date: 12/30/19 This is a dictation on progress note patient name Doris Thomas dictation by Dr. Limon. Patient is conscious alert oriented 3 she transferred from the ICU overflow to the third floor telemetry after she had aortic valve replacement because of severe aortic stenosis., She also has diabetes mellitus type 2 insulin- dependent. 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 Vital sign her temperature 98.1 F oral her pulse rate regular sinus 84/m. No evidence of atrial fibrillation. Her respiratory rate is 18/m nonlabored. Blood pressure 108/54 with a mean 71 Laboratory today indicating WBC 7.4, hemoglobin 8.7 and a hematocrit 26.3 with a platelet count 320 she has status post surgical and thoracotomy anemia. It will be improved as patient started to eat with the nutritional support. Her sodium 137 potassium 4.1 chloride 100 with the carbon dioxide 28 her anion gap is 9 and her BUN is 26 and a creatinine 0.72, GFR 87 and POC glucose 108 very well controlled. On examination [id number]: Patient is conscious alert oriented 3 ambulatory communicating. HEENT negative with the head normocephalic and atraumatic, pupil was equal reactive, conjunctiva was pale, oropharynx is normal. Neck was supple no JVD no thyromegaly no lymphadenopathy trachea midline. No stiffness. Chest is clear to auscultation and percussion and she wearing the chest to base because of the sternotomy and the need to have a pressure when she coughs. Heart regular sinus rhythm, compensated. Abdomen soft positive bowel sounds obese Extremities no pitting edema pulses is intact currently she wearing a thrombotic stocking. Neurologically stable no lateralizing sign. Assessment: #1 status post aortic valve replacement secondary to severe aortic stenosis. #2 diabetes mellitus type 2 currently controlled insulin-dependent. #3 hypertension is well-controlled. Recommendation plan: She may be able to go home today her order of cardiovascular surgeon and cardiac medically stable. Objective - Vital Signs Vital signs: Vital Signs Temp 98.1 F 12/30/19 11:33 Pulse 79 12/30/19 12:00 Resp 18 12/30/19 12:00 BP 108/53 12/30/19 11:33 Pulse Ox 98 12/30/19 11:33 Intake & Output 12/29/19 12/30/19 12/30/19 18:59 06:59 18:59 Intake Total 10 Output Total 450 Balance -440 Weight 89.8 kg Intake: IV 10 Lactated Ringers 1,000 ml 10 @ 20 mls/hr IV .Q24H [facility] Rx#:[id number] Output: Urine 450 Other: Voiding Method Indwelling Catheter Toilet ABP, PAP, CO, CI - Last Documented Arterial Blood Pressure 168/70 Pulmonary Artery Pressure 33/13 Cardiac Output 3.9 Cardiac Index 2.1 - Labs CBC & Chem 7: 12/30/19 06:06 12/30/19 06:06 Labs: Abnormal Lab Results - Last 24 Hours (Table) 12/29/19 12/29/19 12/30/19 Range/Units 16:53 20:24 06:06 RBC 2.95 L (3.80-5.40) m/uL Hgb 8.7 L (11.4-16.0) gm/dL Hct 26.3 L (34.0-46.0) % BUN (7-17) mg/dL Glucose (74-99) mg/dL POC Glucose (mg/dL) 133 H 150 H (75-99) mg/dL 12/30/19 12/30/19 12/30/19 Range/Units 06:06 06:06 12:42 RBC (3.80-5.40) m/uL Hgb (11.4-16.0) gm/dL Hct (34.0-46.0) % BUN 26 H (7-17) mg/dL Glucose 121 H (74-99) mg/dL POC Glucose (mg/dL) 137 H 108 H (75-99) mg/dL
--- NOTE | 2019-12-30 14:18 | P.PN ---
Subjective Progress Note Date: 12/30/19 Physical pleasant 69-year-old female who follows with Dr. Marcos as an outpatient, she is status post aortic valve replacement using a bioprosthetic valve for severe aortic stenosis. She was seen and examined this morning, doing well, no complaints. White blood cell count 7.4, hemoglobin 8.7, platelet count 320. Sodium 137, potassium 4.1, BUN 26, creatinine 0.7. Let pressure 108/50 with a heart rate in the 70s, 90% on room air. Objective - Vital Signs Vital signs: Vital Signs Temp 98.1 F 12/30/19 11:33 Pulse 79 12/30/19 12:00 Resp 18 12/30/19 12:00 BP 108/53 12/30/19 11:33 Pulse Ox 98 12/30/19 11:33 Intake & Output 12/29/19 12/30/19 12/30/19 18:59 06:59 18:59 Intake Total 10 Output Total 450 Balance -440 Weight 89.8 kg Intake: IV 10 Lactated Ringers 1,000 ml 10 @ 20 mls/hr IV .Q24H [facility] Rx#:[id number] Output: Urine 450 Other: Voiding Method Indwelling Catheter Toilet ABP, PAP, CO, CI - Last Documented Arterial Blood Pressure 168/70 Pulmonary Artery Pressure 33/13 Cardiac Output 3.9 Cardiac Index 2.1 - Exam GENERAL EXAM: Alert, very pleasant, 69-year-old white female, on room air, with a pulse ox of 99% comfortable in no apparent distress. HEAD: Normocephalic/atraumatic. EYES: Normal reaction of pupils, equal size. Conjunctiva pink, sclera white. NOSE: Clear with pink turbinates. THROAT: No erythema or exudates. NECK: No masses, no JVD, no thyroid enlargement, no adenopathy. CHEST: No chest wall deformity. Symmetrical expansion. Midsternal incision is clean dry and intact, chest tube sites are clean dry and intact LUNGS: Equal air entry with no crackles, wheeze, rhonchi or dullness. CVS: Regular rate and rhythm, normal S1 and S2, no gallops, no murmurs, no rubs ABDOMEN: Soft, nontender. No hepatosplenomegaly, normal bowel sounds, no gu arding or rigidity. EXTREMITIES: No clubbing, no edema, no cyanosis, 2+ pulses and upper and lower e xtremities. SCDs are present on bilateral lower extremities MUSCULOSKELETAL: Muscle strength and tone normal. SPINE: No scoliosis or deformity SKIN: No rashes CENTRAL NERVOUS SYSTEM: Alert and oriented -3. No focal deficits, tone is normal in all 4 extremities. PSYCHIATRIC: Alert and oriented -3. Appropriate affect. Intact judgment and insight. - Labs CBC & Chem 7: 12/30/19 06:06 12/30/19 06:06 Labs: Abnormal Lab Results - Last 24 Hours (Table) 12/29/19 12/29/19 12/30/19 Range/Units 16:53 20:24 06:06 RBC 2.95 L (3.80-5.40) m/uL Hgb 8.7 L (11.4-16.0) gm/dL Hct 26.3 L (34.0-46.0) % BUN (7-17) mg/dL Glucose (74-99) mg/dL POC Glucose (mg/dL) 133 H 150 H (75-99) mg/dL 12/30/19 12/30/19 12/30/19 Range/Units 06:06 06:06 12:42 RBC (3.80-5.40) m/uL Hgb (11.4-16.0) gm/dL Hct (34.0-46.0) % BUN 26 H (7-17) mg/dL Glucose 121 H (74-99) mg/dL POC Glucose (mg/dL) 137 H 108 H (75-99) mg/dL Assessment and Plan Plan: Assessment and plan 1 severe aortic stenosis post aortic valve replacement. The patient is postop day #5. On room air. 2 Post thoracotomy, extubated without any major difficulty currently on previous of oxygen by nasal cannula 3 hypertension currently off Cleviprex for blood pressure control. Hemodynamic parameters are all stable 4 Diabetes mellitus 5 hyperlipidemia 6 hypertension Plan Patient is anticipating discharge home today. A follow-up appointment will be made in the office post discharge. DNP note has been reviewed, I agree with a documented findings and plan of care. Patient was seen and examined.
--- NOTE | 2019-12-30 16:58 | P.DS ---
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 Symptomatic severe aortic valve stenosis, status post aortic valve replacement 2. History of hypertension 3. History of hyperlipidemia 4. Diabetes mellitus type 2 diet-controlled with a preoperative hemoglobin A1c of 6.2% 5. Gastroesophageal reflux disease 6. Acute postoperative blood loss, and expected outcome secondary to hemodilution and cardiopulmonary bypass PRINCIPAL PROCEDURE: 1. Aortic valve replacement with a #21 mm Ross Inspiris bioprosthetic aortic valve. 2. Clip ligation of the left atrial appendage with a 35 mm Atriclip. 3. Intraoperative transesophageal echocardiogram. HISTORY OF PRESENT ILLNESS: This is a 69-year-old female patient who is followed by Dr. Lonnie Ng on an outpatient basis. She has a past mental History significant for hypertension, dyslipidemia, diet-controlled diabetes mellitus type 2 and a known history of aortic valve stenosis. The patient follows on an outpatient basis also with Dr. Enrique from [facility] for a history of known valvular disease. On a recent 2-D echocardiogram showed her to have an ejection fraction of 55%, severe aortic valve stenosis and mild to moderate mitral valve regurgitation. For further evaluation she underwent a transesophageal echocardiogram which demonstrated the patient's aortic valve to be thickened and calcified with a diminished opening and an aortic valve area calculated in the range of 0.8-0.9 cm suggestive of severe aortic valve stenosis with mild aortic valve regurgitation. It also demonstrated a moderate degree of mitral valve regurgitation, moderate tricuspid valve regurgitation and a normal left ventricular systolic function. The patient also underwent a cardiac catheterization which demonstrated normal coronary arteries. Due to the patient's findings on her transesophageal echocardiogram consult was placed to Dr. Gómez Benjamin from cardiothoracic surgery for further evaluation and surgical recommendations. Dr. Benjamin discussed the findings of the transesophageal echocardiogram with the patient and her , discussed the risks and benefits of aortic valve replacement surgery including the STS risk score and knowing the risks the patient wished to proceed with an elective aortic valve replacement. HOSPITAL COURSE: The patient was admitted to the hospital and after obtaining consent was brought to the preoperative area, prepared in the usual fashion and subsequently taken to the operating room where Dr. Gómez Benjamin performed an aortic valve replacement with a a #21 mm Ross Inspiris bioprosthetic aortic valve, clip ligation of the the left atrial appendage with a 35 mm Atriclip and an intraoperative transesophageal echocardiogram. Upon completion of the surgery the patient was transferred to the cardiovascular intensive care unit where she was recovered, monitored hemodynamically and where she progressed cardiac rehabilitation phase 1. She was extubated, all lines, tubes and supportive drips were discontinued when appropriate and she was transferred to the cardiac stepdown unit for further monitoring and rehabilitation. Her oxygen was titrated down to room air, she continued to work with physical, occupational therapy and cardiac rehabilitation, she was tolerating an oral diet, her pain was well-controlled and she was ready to be discharged home with [facility] on postoperative day #5. She has received written and verbal instructions regarding her medications, activity restrictions, signs and symptoms requiring physician notification and her follow-up appointments. COMPLICATIONS: There were no postoperative complications. CONSULTATIONS: 1. Dr. Enrique for cardiology management. 2 Dr. Ng for medical management. 3. Dr. Ybarra for pulmonary and ventilator management. DISCHARGE INSTRUCTIONS: 1. No driving for 4 weeks, or until physician gives their ok. 2. The patient should sleep in their own bed, no medical bed needed. 3. Stairs are not an issue. If the bedroom is upstairs, it is advised that the patient go up at night and down in the morning for the first week. Go slowly, using handrail and take 1 step at a time. 4. BRITNEY hose are to be worn for 30 days or until physician discontinues. 5. Heart hugger is to be worn 100% of the time until physician discontinues.(except when showering) 6. No lifting, pushing, or pulling more than 10 pounds for 12 weeks. The physician will advise of any restriction changes. 7. The patient is expected to continue the prescribed walking program. 8. Continue pain control per as needed orders. 9. Continue with incentive spirometry and splinting/heart hugger until otherwise directed by the physician. 10. Must shower daily using liquid antibacterial soap and a separate white washcloth for each individual incision. 11. Routine sternal incision care, no ointments, lotions or powders on the incisions. 12. Please notify surgeon/nurse practitioner for temperature greater than 101F or purulent drainage from incisions 13. Prescriptions for first 30 days given per cardiac surgery service. After 30 days, all prescription refills obtained through cardiology/primary care physician. 14. A red arm and has been placed on this patient it should be worn for 30 days post surgery and will be removed by the cardiothoracic surgeons. If an ER visit is necessary, please make sure the number on the red arm band is called. HOME HEALTH SERVICES TO PROVIDE: RN SKILLED HOME CARE SERVICES FOR POST-OP SURGICAL PATIENTS WITH THE FOLLOWING: Coronary Artery Bypass Surgery (CABG), Mitral Valve Replacement/Repair ( MVR), Aortic Valve Replacement/Repair (AVR) RN TO CONTINUE EDUCATION FROM ``ROAD TO A HEALTH HEART PATIENT EDUCATION MANUAL" (GIVEN TO PATIENT IN THE HOSPITAL) MEDICATION RECONCILIATION WITH EDUCATION NEEDED ON FIRST HOME VISIT EMPHASIZE IMPORTANCE OF WEARING BREAST SUPPORT/HEART HUGGER ENCOURAGE USE OF INCENTIVE SPIROMETER 10 X EVERY HOUR WHILE AWAKE ENCOURAGE UTILIZATION OF LOWER EXTREMITY COMPRESSION STOCKINGS/BRITNEY HOSE and ELEVATE LEGS ABOVE LEVEL OF HEART WHILE AT REST. ENCOURAGE AMBULATION 3-5x/day INCREASING TOLERATES, WHILE AVOID EXTREMES IN TEMPERATURE FREQUENCY: RN TO OPEN THE PATIENT WITHIN 24 HOURS OF DISCHARGE FROM THE HOSPITAL WITH TELEHEALTH [place]STALL[place] [facility] [place] TO VISIT 2-3 X A WEEK FOR 4 WEEKS ESTABLISHED BY PATIENT NEEDS. LABORATORY: CBC, CMP TO BE DRAWN ON THE THIRD DAY HOME, (RAN STAT) FAX RESULTS TO [phone]. TELEHEALTH PARAMETERS: WEIGHT: NOTIFY MD OF WEIGHT GAIN OF 2 LBS IN 24 HOURS OR 5 LBS IN ONE WEEK HR: NOTIFY MD OF HR <55 BPM OR HR>100 BPM BP: NOTIFY MD IF BP <90/55 OR BP>140/100 O2 SAT: NOTIFY MD IF PO2<93% ON ROOM AIR SEND TELEHEALTH REPORT TO [facility] CARDIOVASCULAR SURGEON THE FIRST WEEK OF CARE AND THEN BI-WEEKLY. PLEASE ADDITIONALLY COMMUNICATE ANY ABNORMALS AND NEW FINDINGS TO THE SURGEONS OFFICE. Plan - Discharge Summary Discharge Rx Participant: Yes New Discharge Prescriptions: New Aspirin 325 mg PO DAILY tab Potassium Chloride ER [K-Dur 20] 20 meq PO DAILY #7 tab Furosemide [Lasix] 40 mg PO DAILY #7 tablet Metoprolol Tartrate [Lopressor] 25 mg PO BID #60 tab Clopidogrel [Plavix] 75 mg PO DAILY #30 tab Sennosides-Docusate Sodium [Senokot-S] 2 each PO HS #14 tab Acetaminophen Tab [Tylenol] 650 mg PO Q6HR PRN tab PRN Reason: Fever And/ Or Pain Lisinopril [Zestril] 5 mg PO DAILY #30 tab Continue Multivitamins, Thera [Multivitamin (formulary)] 1 tab PO DAILY Atorvastatin [Lipitor] 40 mg PO HS Vit C/E/Zn/Coppr/Lutein/Zeaxan [Preservision Areds 2 Softgel] 1 each PO BID Omeprazole [PriLOSEC] 40 mg PO DAILY Cyanocobalamin (Vitamin B-12) [Vitamin B-12] 1,000 mcg PO DAILY Discontinued Lisinopril [Zestril] 10 mg PO DAILY amLODIPine BESYLATE [Norvasc] 2.5 mg PO DAILY Triamterene-Hctz 37.5-25Mg [Dyazide 37.5-25 Capsule] 1 cap PO DAILY Mupirocin 2% Oint [Bactroban 2% Oint] 1 applic TOPICAL BID Discharge Medication List Atorvastatin [Lipitor] 40 mg PO HS 10/15/19 [History] Multivitamins, Thera [Multivitamin (formulary)] 1 tab PO DAILY 10/15/19 [History] Omeprazole [PriLOSEC] 40 mg PO DAILY 10/15/19 [History] Vit C/E/Zn/Coppr/Lutein/Zeaxan [Preservision Areds 2 Softgel] 1 each PO BID 08/24 [History] Cyanocobalamin (Vitamin B-12) [Vitamin B-12] 1,000 mcg PO DAILY 12/20/19 [History] Acetaminophen Tab [Tylenol] 650 mg PO Q6HR PRN tab 12/30/19 [Rx] Aspirin 325 mg PO DAILY tab 12/30/19 [Rx] Clopidogrel [Plavix] 75 mg PO DAILY #30 tab 12/30/19 [Rx] Furosemide [Lasix] 40 mg PO DAILY #7 tablet 12/30/19 [Rx] Lisinopril [Zestril] 5 mg PO DAILY #30 tab 12/30/19 [Rx] Metoprolol Tartrate [Lopressor] 25 mg PO BID #60 tab 12/30/19 [Rx] Potassium Chloride ER [K-Dur 20] 20 meq PO DAILY #7 tab 12/30/19 [Rx] Sennosides-Docusate Sodium [Senokot-S] 2 each PO HS #14 tab 12/30/19 [Rx] Follow up Appointment(s)/Referral(s): Saleem Enrique MD [STAFF PHYSICIAN] - 01/15/20 10:00 am (Monday) Elma Hinojosa NPC [Nurse Practitioner] - 01/10/20 11:15 am (Monday) Roslyn Swift NPC [Nurse Practitioner] - 01/13/20 2:30 pm Gómez Benjamin MD [STAFF PHYSICIAN] - 3 Weeks [facility] Nurse, [NON-STAFF] - 1-2 Days Lonnie Ng MD [Primary Care Provider] - 01/02/20 11:20 am Ambulatory/Diagnostic Orders: Complete Blood Count w/diff [LAB.AMB] Time Frame: 01/02/20, Facility: [facility], Location: [facility] Comprehensive Metabolic Panel [LAB.AMB] Time Frame: 01/02/20, Facility: [facility], Location: [facility] Activity/Diet/Wound Care/Special Instructions: DISCHARGE INSTRUCTIONS: 1. No driving for 4 weeks, or until physician gives their ok. 2. The patient should sleep in their own bed, no medical bed needed. 3. Stairs are not an issue. If the bedroom is upstairs, it is advised that the patient go up at night and down in the morning for the first week. Go slowly, using handrail and take 1 step at a time. 4. BRITNEY hose are to be worn for 30 days or until physician discontinues. 5. Heart hugger is to be worn 100% of the time until physician discontinues.(except when showering) 6. No lifting, pushing, or pulling more than 10 pounds for 12 weeks. The physician will advise of any restriction changes. 7. The patient is expected to continue the prescribed walking program. 8. Continue pain control per as needed orders. 9. Continue with incentive spirometry and splinting/heart hugger until otherwise directed by the physician. 10. Must shower daily using liquid antibacterial soap and a separate white washcloth for each individual incision. 11. Routine sternal incision care, no ointments, lotions or powders on the incisions. 12. Please notify surgeon/nurse practitioner for temperature greater than 101F or purulent drainage from incisions 13. Prescriptions for first 30 days given per cardiac surgery service. After 30 days, all prescription refills obtained through cardiology/primary care [facility]. 14. A red arm and has been placed on this patient it should be worn for 30 days post surgery and will be removed by the cardiothoracic surgeons. If an ER visit is necessary, please make sure the number on the red arm band is called. HOME HEALTH SERVICES TO PROVIDE: RN SKILLED HOME CARE SERVICES FOR POST-OP SURGICAL PATIENTS WITH THE FOLLOWING: Coronary Artery Bypass Surgery (CABG), Mitral Valve Replacement/Repair ( MVR), Aortic Valve Replacement/Repair (AVR) RN TO CONTINUE EDUCATION FROM ``ROAD TO A HEALTH HEART PATIENT EDUCATION MANUAL" (GIVEN TO PATIENT IN THE HOSPITAL) MEDICATION RECONCILIATION WITH EDUCATION NEEDED ON FIRST HOME VISIT EMPHASIZE IMPORTANCE OF WEARING BREAST SUPPORT/HEART HUGGER ENCOURAGE USE OF INCENTIVE SPIROMETER 10 X EVERY HOUR WHILE AWAKE ENCOURAGE UTILIZATION OF LOWER EXTREMITY COMPRESSION STOCKINGS/BRITNEY HOSE and ELEVATE LEGS ABOVE LEVEL OF HEART WHILE AT REST. ENCOURAGE AMBULATION 3-5x/day INCREASING TOLERATES, WHILE AVOID EXTREMES IN TEMPERATURE FREQUENCY: RN TO OPEN THE PATIENT WITHIN 24 HOURS OF DISCHARGE FROM THE HOSPITAL WITH TELEHEALTH INSTALLED AT [facility] [place], RN TO VISIT 2-3 X A WEEK FOR 4 WEEKS ESTABLISHED BY PATIENT NEEDS. LABORATORY: CBC, CMP TO BE DRAWN ON THE THIRD DAY HOME, (RAN STAT) FAX RESULTS TO [phone]. TELEHEALTH PARAMETERS: WEIGHT: NOTIFY MD OF WEIGHT GAIN OF 2 LBS IN 24 HOURS OR 5 LBS IN ONE WEEK HR: NOTIFY MD OF HR <55 BPM OR HR>100 BPM BP: NOTIFY MD IF BP <90/55 OR BP>140/100 O2 SAT: NOTIFY MD IF PO2<93% ON ROOM AIR SEND TELEHEALTH REPORT TO [facility] CARDIOVASCULAR SURGEON THE FIRST WEEK OF CARE AND THEN BI-WEEKLY. PLEASE ADDITIONALLY COMMUNICATE ANY ABNORMALS AND NEW FINDINGS TO THE SURGEONS OFFICE. Discharge Disposition: HOME WITH HOME HEALTH SERVICES
== END 2019-12-30 17:32 | disposition home health service (06) | DRG 219 ==
LOC: 2ORMAIN 12-25 07:28 → 2SICU 12-25 14:52 → 3SCARD 12-29 22:07
PROVIDERS: ADMIT Thoracic Surgery (Cardiothoracic Vascular Surgery); ATTEND Thoracic Surgery (Cardiothoracic Vascular Surgery)
PROC: 5A1221Z Performance of Cardiac Output, Continuous (ICD-10-PCS; principal; 2019-12-25 10:00)
PROC: 02RF08Z Replacement of Aortic Valve with Zooplastic Tissue, Open Approach (ICD-10-PCS; principal; 2019-12-25 10:00)
PROC: B24BZZ4 Ultrasonography of Heart with Aorta, Transesophageal (ICD-10-PCS; principal; 2019-12-25 10:00)
PROC: 02L70CK Occlusion of Left Atrial Appendage with Extraluminal Device, Open Approach (ICD-10-PCS; principal; 2019-12-25 10:00)
DX: I08.3 Combined rheumatic disorders of mitral, aortic and tricuspid valves (principal); I50.33 Acute on chronic diastolic (congestive) heart failure; D62 Acute posthemorrhagic anemia; E87.1 Hypo-osmolality and hyponatremia; J98.11 Atelectasis; E87.2 Acidosis; I11.0 Hypertensive heart disease with heart failure; B35.4 Tinea corporis; E11.9 Type 2 diabetes mellitus without complications; E66.9 Obesity, unspecified; E78.5 Hyperlipidemia, unspecified; K21.9 Gastro-esophageal reflux disease without esophagitis; Z68.38 Body mass index [BMI] 38.0-38.9, adult; Z79.899 Other long term (current) drug therapy; Z98.51 Tubal ligation status; Z90.49 Acquired absence of other specified parts of digestive tract; Z80.7 Family history of other malignant neoplasms of lymphoid, hematopoietic and related tissues; Z82.3 Family history of stroke; Z80.3 Family history of malignant neoplasm of breast; Z80.8 Family history of malignant neoplasm of other organs or systems
CPT/HCPCS: 71045; 71046; 80048; 80053; 82330; 82805; 83735; 85025; 85027; 85520; 85610; 85730; 86850; 86891; 86900; 86901; 86920; 88305; 94002; 94640

== ENCOUNTER → 2020-03-25 | Outpatient (CLI) | payer MEDICARE ==
[2020-03-25 09:33] LABS: Basophils % (A) 0 %; Eosinophils # (A) 0.1 k/uL (0-0.7); Eosinophils % (A) 2 %; HCT 39.9 % (34.0-46.0); HGB 12.3 gm/dL (11.4-16.0); Lymphocytes # (A) 1.3 k/uL (1.0-4.8); Lymphocytes % (A) 22 %; MCH 25.8 pg (25.0-35.0); MCHC 30.8 g/dL (31.0-37.0); MCV 83.7 fL (80.0-100.0); Mean Platelet Volume 6.5; Monocytes # (A) 0.2 k/uL (0-1.0); Monocytes % (A) 4 %; Neutrophils % (A) 70 %; Platelet Count 303 k/uL (150-450); RBC 4.76 m/uL (3.80-5.40); RDW 15.3 % (11.5-15.5); WBC 5.7 k/uL (3.8-10.6)
[2020-03-25 10:37] LABS: Erythrocyte Sedimentation Rate 15 mm/hr (0-20)
[2020-03-25 10:41] LABS: Appearance,Urine Clear (Clear); Bacteria,Urine Rare /hpf; Bilirubin,Urine Negative (Negative); Blood,Urine Negative (Negative); Color,Urine Light Yellow; Glucose,Urine (UA) Negative (Negative); Ketones,Urine Negative (Negative); Leukocyte Esterase,Urine Large (Negative); Mucus,Urine Rare /hpf; Nitrite,Urine Negative (Negative); PH, Urine 6.5 (5.0-8.0); Protein,Urine Negative (Negative); RBC,Urine 1 /hpf (0-5); Specific Gravity,Urine 1.014 (1.001-1.035); Squamous Epithelial Cell,Urine 1 /hpf (0-4); Urobilinogen,Urine <2.0 mg/dL (<2.0); WBC,Urine 10 /hpf (0-5)
[2020-03-25 14:09] LABS: Protein/Creatinine Ratio,Urine 0.14
[2020-03-25 16:09] LABS: African American GFR (CKD) 108.5 (60.0-200.0); Albumin 4.4 g/dL (3.80-4.90); Albumin/Globulin Ratio 2.1 (1.60-3.17); Anion Gap 13.5 mmol/L (4.00-12.00); C Reactive Protein 0.5 mg/dL (0.0-0.8); Calcium 9.4 mg/dL (8.7-10.3); Carbon Dioxide 28.5 mmol/L (21.6-31.8); Chol/HDL Ratio 3.02; Globulin 2.1 g/dL (1.6-3.3); LDL Cholesterol,Calculated 77.2 mg/dL (0.0-131.0); Non-African American GFR(CKD) 93.7 (60.0-200.0); Total Bilirubin 0.5 mg/dL (0.3-1.2); Total Protein 6.5 g/dL (6.2-8.2); VLDL Calculation 29.8 mg/dL (5.00-40.00)
[2020-03-25 16:44] LABS: Hemoglobin A1C 6.4 % (4.0-6.0)
== END | disposition home or self-care (01) ==
LOC: LABWHC1 08:44
PROVIDERS: ATTEND Internal Medicine
DX: E55.9 Vitamin D deficiency, unspecified (principal); I10 Essential (primary) hypertension; E78.5 Hyperlipidemia, unspecified; Z95.2 Presence of prosthetic heart valve
CPT/HCPCS: 36415; 80053; 80061; 81001; 82306; 82550; 82570; 83036; 84156; 84443; 85025; 85652; 86140

== ENCOUNTER → 2020-08-05 | Outpatient (CLI) | payer MEDICARE ==
[2020-08-05 22:30] LABS: African American GFR (CKD) 87.2 (60.0-200.0); BUN/Creat Ratio 32.5 Ratio (12.00-20.00); Calcium 9.4 mg/dL (8.7-10.3); Non-African American GFR(CKD) 75.2 (60.0-200.0); Potassium 4.2 mmol/L (3.5-5.5)
== END | disposition home or self-care (01) ==
LOC: LABWHC1 12:51
PROVIDERS: ATTEND Internal Medicine Clinical Cardiac Electrophysiology
DX: E87.8 Other disorders of electrolyte and fluid balance, not elsewhere classified (principal)
CPT/HCPCS: 36415; 80048

== ENCOUNTER → 2020-12-18 | Outpatient (CLI) | payer MEDICARE ==
--- NOTE | 2020-12-22 12:09 | MM ---
Reason for exam: screening (asymptomatic). Last mammogram was performed 1 year ago. History: Patient is postmenopausal and has history of high-risk lesion on a previous biopsy at age 66. Family history of premenopausal breast cancer in sister at age 48. Excisional biopsy of the right breast, May 2017. High risk US biopsy breast VAD RT of the right breast, April 04, 2017. Took hormonal contraceptives for 3 years. Physical Findings: A clinical breast exam by your physician is recommended on an annual basis and results should be correlated with mammographic findings. MG 3D Screening Mammo W/Cad Bilateral CC and MLO view(s) were taken. Prior study comparison: December 09, 2019, bilateral MG 3d screening mammo w/cad. November 20, 2018, bilateral MG 3d diag mammo w/cad POLO. April 20, 2018, right breast MG 3d diag mammo w/cad RT. September 18, 2017, bilateral MG 3d diag mammo w/cad POLO. March 17, 2017, right breast MG 3d diag mammo w/cad RT. There are scattered fibroglandular densities. There is chronic nodularity in the right breast. 7m inferior right MLO nodularity is new from recent priors. ASSESSMENT: Incomplete: need additional imaging evaluation, BI-RAD 0 RECOMMENDATION: Special view mammogram of the right breast. (3D) If lesion persists on supplemental views, image directed ultrasound is recommended. [facility] will attempt to contact patient to return for supplemental views and ultrasound if indicated.
== END | disposition home or self-care (01) ==
LOC: RADMAMWWP 15:25
PROVIDERS: ATTEND Obstetrics & Gynecology
DX: Z12.31 Encounter for screening mammogram for malignant neoplasm of breast (principal)
CPT/HCPCS: 77063; 77067

== ENCOUNTER → 2020-12-24 | Outpatient (CLI) | payer MEDICARE ==
--- NOTE | 2020-12-24 09:52 | MM ---
Reason for exam: additional evaluation requested from abnormal screening. Last mammogram was performed less than 1 month ago. History: Patient is postmenopausal and has history of high-risk lesion on a previous biopsy at age 66. Family history of premenopausal breast cancer in sister at age 48. Excisional biopsy of the right breast, May 2017. High risk US biopsy breast VAD RT of the right breast, April 04, 2017. Took hormonal contraceptives for 3 years. Physical Findings: Nurse Summary: 0.5-1cm nodule in the right breast at 7-8 o'clock (nurse TM). MG 3D Work Up W/Cad RT Spot compression MLO and LM view(s) were taken of the right breast. Prior study comparison: December 18, 2020, bilateral MG 3d screening mammo w/cad. December 09, 2019, bilateral MG 3d screening mammo w/cad. There are scattered fibroglandular densities. BB placed by the nurse at 7-8 o'clock. Subtle 6mm circumscribed nodularity posterior inferior becomes apparent on the lateral view. The questioned anterior inferior asymmetric density appears to disperse. These results were verbally communicated with the patient and result sheet given to the patient on 12/24/20. ASSESSMENT: Incomplete: need additional imaging evaluation, BI-RAD 0 RECOMMENDATION: Ultrasound of the right breast. (4-8 o'clock, attention to palpable)
--- NOTE | 2020-12-24 09:54 | USB ---
Reason for exam: additional evaluation requested from abnormal screening. History: Patient is postmenopausal and has history of high-risk lesion on a previous biopsy at age 66. Family history of premenopausal breast cancer in sister at age 48. Excisional biopsy of the right breast, May 2017. High risk US biopsy breast VAD RT of the right breast, April 04, 2017. Took hormonal contraceptives for 3 years. US Breast Workup Limited RT Right limited breast ultrasound including focal area of concern, retroareolar and axilla demonstrates no cystic or solid lesion seen. No abnormality at the nurse palpated 7-8 o'clock site. Scanned 4-8 o'clock. These results were verbally communicated with the patient and result sheet given to the patient on 12/24/20. ASSESSMENT: Probably benign, BI-RAD 3 RECOMMENDATION: Follow-up diagnostic mammogram of the right breast in 6 months. Manage on a clinical basis with regard to any suspicious palpable area.
== END | disposition home or self-care (01) ==
LOC: RADMAMWWP 08:18
PROVIDERS: ATTEND Obstetrics & Gynecology
DX: R92.8 Other abnormal and inconclusive findings on diagnostic imaging of breast (principal); N63.14 Unspecified lump in the right breast, lower inner quadrant
CPT/HCPCS: 77065; 76642; G0279; 77061

== ENCOUNTER → 2021-05-04 | Outpatient (CLI) | payer MEDICARE ==
[2021-05-04 14:50] LABS: Basophils # (A) 0.02 X 10*3/uL (0.00-0.10); Basophils % (A) 0.4 %; Eosinophils # (A) 0.09 X 10*3/uL (0.04-0.35); Eosinophils % (A) 1.6 %; HCT 39.7 % (37.2-46.3); HGB 12.6 g/dL (12.0-15.0); Lymphocytes % (A) 24.6 %; MCH 29.4 pg (27.0-32.0); MCHC 31.7 g/dL (32.0-37.0); MCV 92.5 fL (80.0-97.0); Monocytes # (A) 0.39 X 10*3/uL (0.20-1.00); Monocytes % (A) 6.9 %; Neutrophils # (A) 3.78 X 10*3/uL (1.80-7.70); Neutrophils % (A) 66.3 %; Platelet Count 295 X 10*3/uL (140-440); RBC 4.29 X 10*6/uL (4.10-5.20); RDW 13.7 % (11.5-14.5); WBC 5.69 X 10*3/uL (4.50-10.00)
[2021-05-04 17:42] LABS: Erythrocyte Sedimentation Rate 17 mm/Hr (0-30)
[2021-05-04 18:28] LABS: African American GFR (CKD) 101.7 (60.0-200.0); Albumin 4.4 g/dL (3.80-4.90); Anion Gap 7.4 mmol/L (4.00-12.00); C Reactive Protein 0.4 mg/dL (0.0-0.8); Carbon Dioxide 29.6 mmol/L (21.6-31.8); Chol/HDL Ratio 3.02; Globulin 2.2 g/dL (1.6-3.3); Non-African American GFR(CKD) 87.8 (60.0-200.0); Total Bilirubin 0.6 mg/dL (0.2-1.2); Total Protein 6.6 g/dL (6.2-8.2)
== END | disposition home or self-care (01) ==
LOC: LABWHC1 08:33
PROVIDERS: ATTEND Internal Medicine
DX: Z00.00 Encounter for general adult medical examination without abnormal findings (principal); E78.5 Hyperlipidemia, unspecified; I10 Essential (primary) hypertension; E55.9 Vitamin D deficiency, unspecified; Z95.4 Presence of other heart-valve replacement
CPT/HCPCS: 36415; 80053; 80061; 82306; 82550; 84443; 85025; 85652; 86140

== ENCOUNTER → 2021-07-09 | Outpatient (CLI) | payer MEDICARE ==
--- NOTE | 2021-07-09 14:05 | MM ---
Reason for exam: follow-up at short interval from prior study. Last mammogram was performed 6 months ago. History: Patient is postmenopausal and has history of high-risk lesion on a previous biopsy at age 66. Family history of premenopausal breast cancer in sister at age 48. Excisional biopsy of the right breast, May 2017. High risk US biopsy breast VAD RT of the right breast, April 04, 2017. Took hormonal contraceptives for 3 years. Physical Findings: Nurse did not find any significant physical abnormalities on exam. MG 3D Diag Mammo W/Cad RT CC and MLO view(s) were taken of the right breast. Prior study comparison: December 24, 2020, right breast MG 3d work up w/cad RT. December 18, 2020, bilateral MG 3d screening mammo w/cad. There are scattered fibroglandular densities. There is no discrete abnormality No significant new findings when compared with previous films. These results were verbally communicated with the patient and result sheet given to the patient on 07/09/21. ASSESSMENT: Benign, BI-RAD 2 RECOMMENDATION: Return to routine screening mammogram schedule for both breasts. Back on schedule.
== END | disposition home or self-care (01) ==
LOC: RADMAMWWP 13:28
PROVIDERS: ATTEND Internal Medicine
DX: N64.89 Other specified disorders of breast (principal); Z78.0 Asymptomatic menopausal state; Z80.3 Family history of malignant neoplasm of breast; Z79.3 Long term (current) use of hormonal contraceptives
CPT/HCPCS: 77065; G0279; 77061

== ENCOUNTER → 2022-01-11 | Outpatient (CLI) | payer MEDICARE ==
--- NOTE | 2022-01-12 11:07 | MM ---
Reason for exam: screening (asymptomatic). Last mammogram was performed 6 months ago. History: Patient is postmenopausal and has history of high-risk lesion on a previous biopsy at age 66. Family history of premenopausal breast cancer in sister at age 48. Excisional biopsy of the right breast, May 2017. High risk US biopsy breast VAD RT of the right breast, April 04, 2017. Took hormonal contraceptives for 3 years. Physical Findings: A clinical breast exam by your physician is recommended on an annual basis and results should be correlated with mammographic findings. MG 3D Screening Mammo W/Cad Bilateral CC and MLO view(s) were taken. Prior study comparison: July 09, 2021, right breast MG 3d diag mammo w/cad RT. December 24, 2020, right breast MG 3d work up w/cad RT. The breast tissue is heterogeneously dense. This may lower the sensitivity of mammography. Stable benign calcifications. There is no discrete abnormality. No significant changes when compared with prior studies. ASSESSMENT: Benign, BI-RAD 2 RECOMMENDATION: Routine screening mammogram of both breasts in 1 year.
== END | disposition home or self-care (01) ==
LOC: RADMAMWWP 13:24
PROVIDERS: ATTEND Internal Medicine
DX: Z12.31 Encounter for screening mammogram for malignant neoplasm of breast (principal); Z78.0 Asymptomatic menopausal state
CPT/HCPCS: 77063; 77067

== ENCOUNTER → 2022-05-13 | Outpatient (CLI) | payer MEDICARE ==
[2022-05-13 10:36] LABS: Basophils # (A) 0.02 X 10*3/uL (0.00-0.10); Basophils % (A) 0.3 %; Eosinophils # (A) 0.08 X 10*3/uL (0.04-0.35); Eosinophils % (A) 1.3 %; HCT 39.2 % (37.2-46.3); HGB 12.4 g/dL (12.0-15.0); Immature Grans, Automated 0.5 %; Lymphocytes # (A) 1.49 X 10*3/uL (0.90-5.00); Lymphocytes % (A) 23.8 %; MCH 28.6 pg (27.0-32.0); MCHC 31.6 g/dL (32.0-37.0); MCV 90.5 fL (80.0-97.0); Mean Platelet Volume 9.2 fL (9.5-12.2); Monocytes # (A) 0.46 X 10*3/uL (0.20-1.00); Monocytes % (A) 7.3 %; NRBC Per 100 WBC 0 /100 WBCS (0.0-0.0); Neutrophils # (A) 4.18 X 10*3/uL (1.80-7.70); Neutrophils % (A) 66.8 %; Platelet Count 299 X 10*3/uL (140-440); RBC 4.33 X 10*6/uL (4.10-5.20); WBC 6.26 X 10*3/uL (4.50-10.00)
[2022-05-13 11:03] LABS: Erythrocyte Sedimentation Rate 14 mm/Hr (0-30)
[2022-05-13 11:19] LABS: ALT 24 U/L (8-44); AST 24 U/L (13-35); African American GFR (CKD) 101.6 (60.0-200.0); Albumin 4.2 g/dL (3.8-4.9); Albumin/Globulin Ratio 1.85 (1.60-3.17); Alkaline Phosphatase 71 U/L (41-126); BUN/Creat Ratio 29.46 Ratio (12.00-20.00); Blood Urea Nitrogen 20.3 mg/dL (9.0-27.0); Calcium 9.1 mg/dL (8.7-10.3); Chloride 105 mmol/L (96-109); Creatine Kinase 76 U/L (26-186); Globulin 2.3 g/dL (1.6-3.3); Glucose 123 mg/dL (70-110); Magnesium 2.3 mg/dL (1.5-2.4); Non-African American GFR(CKD) 87.6 (60.0-200.0); Phosphorus 2.9 mg/dL (2.4-5.1); Potassium 3.7 mmol/L (3.5-5.5); Sodium 144 mmol/L (135-145); Total Protein 6.5 g/dL (6.2-8.2); Uric Acid 6.2 mg/dL (2.9-7.7)
[2022-05-13 11:37] LABS: C Reactive Protein <0.30 mg/dL (0.00-0.80); Chol/HDL Ratio 3.07 Ratio
== END | disposition home or self-care (01) ==
LOC: LABWHC1 07:19
PROVIDERS: ATTEND Internal Medicine
DX: Z00.00 Encounter for general adult medical examination without abnormal findings (principal); D64.9 Anemia, unspecified; I10 Essential (primary) hypertension; E78.5 Hyperlipidemia, unspecified; E03.9 Hypothyroidism, unspecified
CPT/HCPCS: 36415; 80053; 80061; 82272; 82306; 82550; 83735; 84100; 84443; 84550; 85025; 85652; 86140

== ENCOUNTER → 2022-07-13 | Outpatient (CLI) | payer MEDICARE ==
--- NOTE | 2022-07-13 11:02 | P.SLEEP ---
History of Present Illness DATE: 07/13/2022 CONSULTATION/NEW PATIENT EVALUATION HISTORY OF PRESENT ILLNESS/SLEEP-WAKE EVALUATION: 72 year old lady had been evaluated in the sleep center for possible obstructive sleep apnea hypopnea syndrome. SLEEP SCHEDULE: Usually sleep schedule from 10 PM to 7 AM. FALLING ASLEEP: No problems with falling asleep, although patient has TV set and bedroom. DURING SLEEP: Patient usually sleeps on the side position with snoring and episodes of changing amplitude of her breathing during the sleep according to her . She wakes up from sleep 2 times with nocturia. No history of hypnogogical hallucinations, sleep paralysis, or cataplexy. DURING THE DAY/WAKE STATE: Patient drinks 2 cups of coffee during the day. [place] sleepiness scale is 5. PAST MEDICAL HISTORY: Hypertension, hyperlipidemia. PAST SURGICAL HISTORY: Aortic valve replacement with cow while, mastectomy. MEDICATIONS: Omeprazole 40 mg once a day, metoprolol 25 mg twice a day, furosemide 40 mg twice a day, amlodipine 5 mg once a day, atorvastatin 40 mg once a day. SOCIAL HISTORY: Negative for smoking or using alcohol. FAMILY HISTORY: Hypertension, heart problems, hyperlipidemia, acid reflux. REVIEW OF SYSTEMS: Snoring, multiple awakenings from sleep with nocturia. No fevers. No double vision. No recent chest pain. No shortness of breath. No abdominal pain. No bleeding episodes. No blood in urine. No seizure episodes. PHYSICAL EXAMINATION: GENERAL: A pleasant patient without any distress. VITAL SIGNS: BP 145/76 , HR 78 , RR 16 , weight 192 pounds, height 5 foot 1 inches, body mass index 36 . HEENT: PERRLA, EOMI. Evaluation of oropharynx showed tongue protrudes midline, low position of soft palate Mallampati 4. NECK: Supple. No JVD. Thyroid is not palpable. 16 inches in circumference. LUNGS: Clear to percussion and to auscultation. Good air exchange. No wheezing or rhonchi. HEART: S1, S2 regular.. ABDOMEN: Soft and nontender. Bowel sounds are present. No organomegaly appreciated. EXTREMITIES: No clubbing or cyanosis. CUSTOMER SERVICE CASHIER: Awake, alert, and oriented x3. Cranial nerves 2 to 7 intact. There is no fasciculation or atrophy noted. No focal deficits observed. ASSESSMENT: 1. Snoring, multiple awakenings from sleep with nocturia, extremely low position of soft palate Mallampati 4, whide neck 16 inches in circumference. Obstructive sleep apnea hypopnea syndrome. 2. Obesity body mass index 36.0. 3 hypertension. 4. Hyperlipidemia. 5 status post aortic valve replacement with cow valve. 6. Status post mastectomy. 7. Status post bilateral cataract surgery. 8. Status post appendectomy. PLAN: 1. Polysomnography for evaluation of patient's breathing during sleep. 2. CPAP/BiPAP titration if sleep study confirms obstructive sleep apnea- hypopnea syndrome. 3. Preferable position during sleep on the side. 4. No driving if patient feels any sleepiness. Patient is aware of civil and criminal liability for unsafe driving. 5. Sleep hygiene with regular sleep time for at least 7.5-8 hours. 6. Watching and losing weight. Thank you very much for referring this patient for consultation. Sincerely, Lui Robins MD, PhD, FAASM. Diplomat of [place] [employer], Sleep Medicine Board by [place] [employer] [place] [employer] Speech Communication Professor of [facility] [place] Past Medical History Past Medical History: Diabetes Mellitus, GERD/Reflux, Hyperlipidemia, Hypertension Additional Past Medical History / Comment(s): Hx. of pre diabetes not currently taking any medication. The patient had severe aortic stenosisBased on recent KESHAV, the patient's preoperative aortic valve area was 0.8 cm and the patient also had a moderate degree of mitral regurgitation. History of Any Multi-Drug Resistant Organisms: None Reported Past Surgical History: Appendectomy, Tubal Ligation Additional Past Surgical History / Comment(s): Colonoscopy. EGD. Past Anesthesia/Blood Transfusion Reactions: No Reported Reaction Additional Past Anesthesia/Blood Transfusion Reaction / Comment(s): no hx blood transfusion Past Psychological History: No Psychological Hx Reported Past Alcohol Use History: Rare Past Drug Use History: None Reported - Past Family History Mother Family Medical History: Cancer Additional Family Medical History / Comment(s): Skin Sister(s) Family Medical History: Cancer Additional Family Medical History / Comment(s): Breast Brother(s) Family Medical History: Cancer, CVA/TIA Father Family Medical History: Cancer Additional Family Medical History / Comment(s): multiple myeloma Medications and Allergies Home Medications Medication Instructions Recorded Confirmed Type Atorvastatin [Lipitor] 40 mg PO HS 10/15/19 12/25/19 History Multivitamins, Thera [Multivitamin 1 tab PO DAILY 10/15/19 12/25/19 History (formulary)] Omeprazole [PriLOSEC] 40 mg PO DAILY 10/15/19 12/25/19 History Vit C/E/Zn/Coppr/Lutein/Zeaxan 1 each PO BID 10/15/19 12/25/19 History [Preservision Areds 2 Softgel] Cyanocobalamin (Vitamin B-12) 1,000 mcg PO DAILY 12/20/19 12/25/19 History [Vitamin B-12] Acetaminophen Tab [Tylenol] 650 mg PO Q6HR PRN tab 12/30/19 Rx Aspirin 325 mg PO DAILY tab 12/30/19 Rx Clopidogrel [Plavix] 75 mg PO DAILY #30 tab 12/30/19 Rx Furosemide [Lasix] 40 mg PO DAILY #7 tablet 12/30/19 Rx Metoprolol Tartrate [Lopressor] 25 mg PO BID #60 tab 12/30/19 Rx Potassium Chloride ER [K-Dur 20] 20 meq PO DAILY #7 tab 12/30/19 Rx Sennosides-Docusate Sodium 2 each PO HS #14 tab 12/30/19 Rx [Senokot-S] lisinopriL [Zestril] 5 mg PO DAILY #30 tab 12/30/19 Rx Allergies Allergy/AdvReac Type Severity Reaction Status Date / Time No Known Allergies Allergy Verified 12/25/19 07:48 Sleep Note - Sleep Note Sleep Note: Temperature: Pulse Rate: Respiratory Rate: Blood Pressure: SpO2: Height: Weight: BMI: Neck Circumference:
== END ==
LOC: SLEEP 10:14
PROVIDERS: ATTEND Internal Medicine
DX: G47.33 Obstructive sleep apnea (adult) (pediatric) (principal); E66.9 Obesity, unspecified; Z68.36 Body mass index [BMI] 36.0-36.9, adult; I10 Essential (primary) hypertension; E78.5 Hyperlipidemia, unspecified; Z90.10 Acquired absence of unspecified breast and nipple; Z98.41 Cataract extraction status, right eye; Z98.42 Cataract extraction status, left eye; Z90.49 Acquired absence of other specified parts of digestive tract; Z95.2 Presence of prosthetic heart valve
CPT/HCPCS: 99211

== ENCOUNTER → 2022-09-15 | Outpatient (CLI) | payer MEDICARE | END | disposition home or self-care (01) | LOC: LABWHC1 07:14 | PROVIDERS: ATTEND Internal Medicine | DX: R73.9 Hyperglycemia, unspecified (principal) | CPT/HCPCS: 36415; 83036 ==

== ENCOUNTER 2022-09-18 10:54 | Emergency (ER) | payer MEDICARE ==
[2022-09-18 11:02] VITALS: BP 139/72; PULSE 77; RESP 20; TEMP 98
[2022-09-18] MEDS ORDERED: LIDOCAINE 1% INJ 10MG/ML (30 ML VIAL-PF) SQ ONE (11:18)
[2022-09-18] MEDS ORDERED: DIPH,PERTUS(ACELL)TETVAC-LF 0.5 ML VIAL IM ONE (11:18)
--- NOTE | 2022-09-18 11:29 | ED ---
Wound/Laceration HPI - General Chief Complaint: Wound/Laceration Stated Complaint: finger lac Time Seen by Provider: 09/18/22 11:09 Source: patient, family, RN notes reviewed Mode of arrival: ambulatory Limitations: no limitations - History of Present Illness Initial Comments: Patient is a pleasant 72-year-old female presenting to the emergency room with complaints of a laceration to her left index finger which occurred yesterday while cleaning her stone. She reports that she attempted to put liquid Band-Aid over the area preventing coming to the emergency room unfortunately the wound continues to be bothersome and does not stay well approximated. She reports pains specifically related to the laceration but denies any pain elsewhere in the digit, she denies any purulent drainage or range of motion impairment. She is unsure of her tetanus status. She denies any other complaints or concerns including any fevers or chills. She has a past medical history significant for borderline diabetes, GERD, hypertension, hyperlipidemia and valvular disease. - Related Data Home Medications Medication Instructions Recorded Confirmed Atorvastatin [Lipitor] 40 mg PO HS 10/15/19 12/25/19 Multivitamins, Thera [Multivitamin 1 tab PO DAILY 10/15/19 12/25/19 (formulary)] Omeprazole [PriLOSEC] 40 mg PO DAILY 10/15/19 12/25/19 Vit C/E/Zn/Coppr/Lutein/Zeaxan 1 each PO BID 10/15/19 12/25/19 [Preservision Areds 2 Softgel] Cyanocobalamin (Vitamin B-12) 1,000 mcg PO DAILY 12/20/19 12/25/19 [Vitamin B-12] Previous Rx's Medication Instructions Recorded Acetaminophen Tab [Tylenol] 650 mg PO Q6HR PRN tab 12/30/19 Aspirin 325 mg PO DAILY tab 12/30/19 Clopidogrel [Plavix] 75 mg PO DAILY #30 tab 12/30/19 Furosemide [Lasix] 40 mg PO DAILY #7 tablet 12/30/19 Metoprolol Tartrate [Lopressor] 25 mg PO BID #60 tab 12/30/19 Potassium Chloride ER [K-Dur 20] 20 meq PO DAILY #7 tab 12/30/19 Sennosides-Docusate Sodium 2 each PO HS #14 tab 12/30/19 [Senokot-S] lisinopriL [Zestril] 5 mg PO DAILY #30 tab 12/30/19 Allergies Allergy/AdvReac Type Severity Reaction Status Date / Time No Known Allergies Allergy Verified 09/18/22 11:02 Review of Systems ROS Statement: Those systems with pertinent positive or pertinent negative responses have been documented in the HPI. ROS Other: All systems not noted in ROS Statement are negative. Past Medical History Past Medical History: Diabetes Mellitus, GERD/Reflux, Hyperlipidemia, Hypertension Additional Past Medical History / Comment(s): Hx. of pre diabetes not currently taking any medication. The patient had severe aortic stenosisBased on recent KESHAV, the patient's preoperative aortic valve area was 0.8 cm and the patient also had a moderate degree of mitral regurgitation. History of Any Multi-Drug Resistant Organisms: None Reported Past Surgical History: Appendectomy, Tubal Ligation Additional Past Surgical History / Comment(s): Colonoscopy. EGD. Past Anesthesia/Blood Transfusion Reactions: No Reported Reaction Additional Past Anesthesia/Blood Transfusion Reaction / Comment(s): no hx blood transfusion Past Psychological History: No Psychological Hx Reported Smoking Status: Current every day smoker Past Alcohol Use History: Rare Past Drug Use History: None Reported - Past Family History Mother Family Medical History: Cancer Additional Family Medical History / Comment(s): Skin Sister(s) Family Medical History: Cancer Additional Family Medical History / Comment(s): Breast Brother(s) Family Medical History: Cancer, CVA/TIA Father Family Medical History: Cancer Additional Family Medical History / Comment(s): multiple myeloma General Exam General appearance: alert, in no apparent distress Head exam: Present: atraumatic, normocephalic, normal inspection Eye exam: Present: normal appearance, PERRL, EOMI. Absent: scleral icterus, conjunctival injection, periorbital swelling ENT exam: Present: normal exam, mucous membranes moist Neck exam: Present: normal inspection, full ROM Respiratory exam: Absent: respiratory distress, accessory muscle use Cardiovascular Exam: Present: regular rate GI/Abdominal exam: Absent: distended Rectal exam: Present: deferred Extremities exam: Present: full ROM. Absent: pedal edema, joint swelling Left Hand Wrist exam: Present: full ROM, tenderness, swelling (Mild distal tip left index finger), laceration (Curved flap like laceration tip of index finger total length approximately 2 cm). Absent: deformity, dislocation, amputation, nail avulsion Vascular: Absent: vascular compromise Back exam: Present: normal inspection Neurological exam: Present: alert, oriented X3, CN II-XII intact Psychiatric exam: Present: normal affect, normal mood Skin exam: Present: other (Laceration as above) Course Vital Signs 09/18/22 11:00 Temperature 98 F Pulse Rate 77 Respiratory 20 Rate Blood Pressure 139/72 O2 Sat by Pulse 99 Oximetry Procedures - Laceration Laceration #1 Consent Obtained: verbal consent Indication: laceration Site: hand (left index finger distal end palmar aspect) Size (cm): 2 Description: linear Depth: simple, single layer Anesthetic Used: lidocaine 1% Anesthesia Technique: local infiltration Pre-repair: wound explored Type of Sutures: nylon Size of Sutures: 4-0 Number of Sutures: 5 Technique: simple, interrupted Patient Tolerated Procedure: well, no complications Medical Decision Making - Medical Decision Making 72-year-old female presenting with laceration to left index finger unsure of tetanus status. Will update tetanus status. No concern for foreign body or trauma to bone no indication for laboratory studies or diagnostic imaging. Will update tetanus and close laceration. Laceration closed without complications. Wound care discussed with patient and spouse. Tetanus vaccination tolerated well. Will discharge home in stable condition with follow-up with her primary care provider. Case discussed with Dr. Hogan. Disposition Clinical Impression: Laceration Disposition: HOME SELF-CARE Condition: Stable Instructions (If sedation given, give patient instructions): Care For Your Stitches (ED), Laceration (ED) Additional Instructions: Please keep wound clean and dry. Monitor for signs and symptoms of infection and seek medical attention as appropriate if symptoms occur. Please follow-up with your primary care provider for suture removal in 5-7 days. Please return to the Emergency Department if symptoms worsen or any other concerns. Is patient prescribed a controlled substance at d/c from ED?: No Referrals: Lonnie Ng MD [Primary Care Provider] - 1-2 days Time of Disposition: 12:04
== END 2022-09-18 12:30 | disposition home or self-care (01) ==
LOC: EC 10:54
DX: Z23 Encounter for immunization (principal); S61.211A Laceration without foreign body of left index finger without damage to nail, initial encounter; E11.9 Type 2 diabetes mellitus without complications; K21.9 Gastro-esophageal reflux disease without esophagitis; E78.5 Hyperlipidemia, unspecified; I10 Essential (primary) hypertension; F17.200 Nicotine dependence, unspecified, uncomplicated; Z79.01 Long term (current) use of anticoagulants; Z79.83 Long term (current) use of bisphosphonates; Z79.891 Long term (current) use of opiate analgesic; Z79.899 Other long term (current) drug therapy; W26.8XXA Contact with other sharp object(s), not elsewhere classified, initial encounter
CPT/HCPCS: 90715; 99282; 90471; 12001; J2001

== ENCOUNTER → 2023-03-08 | Outpatient (CLI) | payer MEDICARE ==
--- NOTE | 2023-03-08 15:13 | P.PN ---
Subjective DATE: 03/08/2023 FOLLOW UP VISIT. Patient with obstructive sleep apnea hypopnea syndrome return to sleep center for follow-up visit. Recently patient had sleep study which documented obstructive sleep apnea hypopnea syndrome. Patient was initiated on PAP therapy and today is first visit after treatment was started. I explained results of sleep studies to the patient and family in details. Patient was able to use PAP equipment every night for the whole night. The patient does not have significant problems with the mask, PAP pressure and humidification. [place] sleepiness scale is 3, which is normal. I checked information from PAP unit. PAP unit pressure from 5-11, average 8.9 cm H2O. Usage is 97% and 77 % for more then 4 hours, average 5 hours per night. Leak is 19.9 l/m, which is in acceptable range. Apnea Hypopnea Index is 0.3, which is normal. MEDICATIONS:1. Omeprazole 40 mg once a day 2. Metoprolol 25 mg twice a day 3. Amlodipine 5 mg once a day 4. Atorvastatin 40 mg once a day During physical exam: GENERAL: A pleasant patient without any distress. VITAL SIGNS: BP 148/75, HR 65, RR 20 , weight 194.4, temperature 96.7, oxygen saturation at room air 96 . HEENT: PERRLA, EOMI.low position of soft palate, Mallapati 4 . NECK: Supple. No JVD. LUNGS: Clear to percussion and to auscultation. Good air exchange. No wheezing or rhonchi. HEART: S1, S2 regular. ABDOMEN: Soft and nontender. Slightly obese EXTREMITIES: No clubbing or cyanosis. SENIOR CONSTRUCTION ESTIMATOR: Awake, alert, and oriented x3. No focal deficit. Impressions: 1. Obstructive sleep apnea-hypopnea syndrome. Patient demonstrated great compliance with treatment, benefiting from treatment. 2. Obesity. 3. Hypertension. 4. 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 On CPAP patient sleeps better no complaints of leg movements. 5. Status post aortic 12 replacement with Hien for. 6. Status post mastectomy. 7. Status post appendectomy. 8. Status post bilateral cataract surgery. Plan: 1. Continue using PAP equipment every night for the whole night. 2. To change air filter at least 1-2 times per month. 3. PAP unit should stay lower then position of the head. 4. Advised patient to remove all remaining water from humidifier canister daily and make it dry after each usage. Refill canister with fresh distilled water before each usage. 5. Sleep hygiene with regular time in bed for at least 8 hours. 6. Precautions related to driving. No driving if feel any sleepiness. 7. I will maintain prescription for PAP supplies including mask, tube, filters. 8. Follow up visit in 6 months or earlier if patient has any problems. 9. Watching and losing weight. Thank you very much for allowing me to participate in the management of your patient. Lui Robins MD, PhD, FAASM. Diplomat of [place] [employer], Sleep Medicine Board by [place] [employer] Field Clinical Engineer of [facility] [place]
== END ==
LOC: SLEEP 14:31
PROVIDERS: ATTEND Internal Medicine
DX: G47.33 Obstructive sleep apnea (adult) (pediatric) (principal); E66.9 Obesity, unspecified; I10 Essential (primary) hypertension; Z79.899 Other long term (current) drug therapy; Z90.49 Acquired absence of other specified parts of digestive tract; Z98.890 Other specified postprocedural states; Z79.82 Long term (current) use of aspirin
CPT/HCPCS: 99212

== ENCOUNTER → 2023-08-29 | Outpatient (CLI) | payer MEDICARE ==
[2023-08-29 10:50] LABS: Basophils # (A) 0.03 X 10*3/uL (0.00-0.10); Basophils % (A) 0.5 %; Eosinophils # (A) 0.13 X 10*3/uL (0.04-0.35); Eosinophils % (A) 2.2 %; HCT 41.5 % (37.2-46.3); HGB 13.4 d/dL (12.0-15.0); Lymphocytes # (A) 1.47 X 10*3/uL (0.90-5.00); Lymphocytes % (A) 25.3 %; MCH 29.4 pg (27.0-32.0); MCHC 32.3 d/dL (32.0-37.0); Mean Platelet Volume 9.1 FL (9.5-12.2); Monocytes # (A) 0.38 X 10*3/uL (0.20-1.00); Monocytes % (A) 6.5 %; NRBC Per 100 WBC 0 X 10*3/uL (0.00-0.01); Neutrophils # (A) 3.79 X 10*3/uL (1.80-7.70); Neutrophils % (A) 65.2 %; Platelet Count 296 X 10*3/uL (140-440); RBC 4.56 X 10*6/uL (4.10-5.20); RDW 13.4 % (11.5-14.5); WBC 5.82 X 10*3/uL (4.50-10.00)
[2023-08-29 11:27] LABS: Appearance,Urine Clear (Clear); Bilirubin,Urine Negative (Negative); Blood,Urine Negative (Negative); Color,Urine Yellow (Yellow); Ketones,Urine Negative (Negative); Nitrite,Urine Negative (Negative); Specific Gravity,Urine 1.023 (1.001-1.030)
[2023-08-29 11:29] LABS: ALT 26 U/L (8-44); AST 18 U/L (13-35); Albumin 4.4 d/dL (3.8-4.9); Alkaline Phosphatase 78 U/L (41-126); BUN/Creat Ratio 28.25 Ratio (12.00-20.00); Bacteria,Urine None Seen (None Seen); Blood Urea Nitrogen 22.6 mg/dL (9.0-27.0); Calcium 9.5 mg/dL (8.7-10.3); Carbon Dioxide 27.1 mmol/L (21.6-31.8); Chloride 102 mmol/L (96-109); Chol/HDL Ratio 3.19 Ratio; Glucose 130 mg/dL (70-110); LDL Cholesterol,Calculated 85.5 mg/dL (0.0-131.0); Magnesium 2.1 mg/dL (1.5-2.4); Phosphorus 3.2 mg/dL (2.4-5.1); Potassium 3.9 mmol/L (3.5-5.5); Sodium 142 mmol/L (135-145); Total Bilirubin 0.4 mg/dL (0.3-1.2); Total Protein 6.4 d/dL (6.2-8.2); Uric Acid 6.5 mg/dL (2.9-7.7)
[2023-08-29 12:02] LABS: % Iron Saturation 23.45 (12.00-45.00); Creatine Kinase 100 U/L (26-186); Ferritin 70.8 ng/mL (10.0-291.0); Iron 87 UG/DL (50-170); Total Iron Binding Capacity 371 UG/DL (228-460)
[2023-08-29 12:44] LABS: Erythrocyte Sedimentation Rate 22 mm/Hr (0-30)
[2023-08-29 17:37] LABS: Microalbumin Creatinine Ratio <9 mg/g Cr (0-30)
== END | disposition home or self-care (01) ==
LOC: LABWHC1 07:28
PROVIDERS: ATTEND Internal Medicine
DX: Z00.00 Encounter for general adult medical examination without abnormal findings (principal); I25.10 Atherosclerotic heart disease of native coronary artery without angina pectoris; I35.9 Nonrheumatic aortic valve disorder, unspecified; I10 Essential (primary) hypertension; D64.9 Anemia, unspecified; E87.8 Other disorders of electrolyte and fluid balance, not elsewhere classified; M10.9 Gout, unspecified; E78.5 Hyperlipidemia, unspecified; E03.9 Hypothyroidism, unspecified; N39.0 Urinary tract infection, site not specified; E55.9 Vitamin D deficiency, unspecified; R80.9 Proteinuria, unspecified
CPT/HCPCS: 36415; 80053; 80061; 81001; 82043; 82306; 82550; 82570; 82728; 83540; 83550; 83735; 84100; 84443; 84550; 85025; 85652; 86140

== ENCOUNTER → 2023-09-05 | Outpatient (CLI) | payer MEDICARE ==
[2023-09-05 11:19] LABS: C-Peptide 3.99 ng/mL (0.81-3.85)
== END | disposition home or self-care (01) ==
LOC: LABWHC1 07:06
PROVIDERS: ATTEND Internal Medicine
DX: E11.65 Type 2 diabetes mellitus with hyperglycemia (principal)
CPT/HCPCS: 36415; 82947; 83036; 83525; 84681

== ENCOUNTER 2023-09-14 06:05 | Day surgery (SDC) | payer MEDICARE ==
[2023-09-12 11:56] VITALS: BMI 37.0
[2023-09-14 06:53] LABS: Glucose,Whole Blood 114 mg/dL (70-110)
[2023-09-14] MEDS: LACTATED RINGERS 1,000 ML IV SCH ×2 (06:54→06:56)
[2023-09-14] MEDS ORDERED: PROPOFOL 10 MG/ML 20 ML VIAL IV ONE (06:59)
--- NOTE | 2023-09-14 07:00 | P.GSHP ---
History of Present Illness H&P Date: 09/14/23 CHIEF COMPLAINT: GERD and colon screen HISTORY OF PRESENT ILLNESS: The patient is a 73-year-old female who presents with gastroesophageal reflux disease and need for colon screen. Upper and lower endoscopy were offered for further evaluation and management. PAST MEDICAL HISTORY: Please see list. PAST SURGICAL HISTORY: Please see list. MEDICATIONS: Please see list. ALLERGIES: Please see list. SOCIAL HISTORY: No illicit drug use FAMILY HISTORY: No reports of Crohn disease or ulcerative colitis. REVIEW OF ORGAN SYSTEMS: CONSTITUTIONAL: No reports of fevers or chills. GI: Denies any blood in stools or constipation. PHYSICAL EXAM: VITAL SIGNS: Stable GENERAL: Well-developed pleasant in no acute distress. HEENT: No scleral icterus. Extraocular movements grossly intact. Moist buccal mucosa. NECK: Supple without lymphadenopathy. CHEST: Unlabored respirations. Equal bilateral excursions. CARDIOVASCULAR: Regular rate and rhythm. Distal 2+ pulses. ABDOMEN: Soft, nondistended. MUSCULOSKELETAL: No clubbing, cyanosis, or edema. ASSESSMENT: 1. Gastroesophageal reflux disease 2. Colon screen. PLAN: 1. Recommend proceeding with an upper and lower endoscopy Past Medical History Past Medical History: Diabetes Mellitus, GERD/Reflux, Hyperlipidemia, Hypertension Additional Past Medical History / Comment(s): hemorrhoids, Hx. of pre diabetes not currently taking any medication. moderate degree of mitral regurgitation. History of Any Multi-Drug Resistant Organisms: None Reported Past Surgical History: Appendectomy, Cardiac Valve Replacement, Tubal Ligation Additional Past Surgical History / Comment(s): Colonoscopy. EGD.,Aortic valve replacement,mammary gland removed Past Anesthesia/Blood Transfusion Reactions: No Reported Reaction Additional Past Anesthesia/Blood Transfusion Reaction / Comment(s): no hx blood transfusion Smoking Status: Never smoker - Past Family History Mother Family Medical History: Cancer Additional Family Medical History / Comment(s): Skin Sister(s) Family Medical History: Cancer Additional Family Medical History / Comment(s): Breast Brother(s) Family Medical History: Cancer, CVA/TIA Father Family Medical History: Cancer Additional Family Medical History / Comment(s): multiple myeloma Medications and Allergies Home Medications Medication Instructions Recorded Confirmed Type Atorvastatin [Lipitor] 40 mg PO HS 10/15/19 09/14/23 History Multivitamins, Thera [Multivitamin 1 tab PO DAILY 10/15/19 09/14/23 History (formulary)] Omeprazole [PriLOSEC] 40 mg PO DAILY 10/15/19 09/14/23 History Vit C/E/Zn/Coppr/Lutein/Zeaxan 1 each PO BID 10/15/19 09/14/23 History [Preservision Areds 2 Softgel] Furosemide [Lasix] 40 mg PO DAILY #7 tablet 12/30/19 09/14/23 Rx Metoprolol Tartrate [Lopressor] 25 mg PO BID #60 tab 12/30/19 09/14/23 Rx Ascorbic Acid [Vitamin C] 500 mg PO DAILY 09/12/23 09/14/23 History Cholecalciferol [Vitamin D3 (25 25 mcg PO DAILY 09/12/23 09/14/23 History Mcg = 1000 Iu)] Cyanocobalamin (Vitamin B-12) 1,000 mcg PO DAILY 09/12/23 09/14/23 History [Vitamin B-12] Spironolactone 25 mg PO DAILY 09/12/23 09/14/23 History amLODIPine [Norvasc] 5 mg PO HS 09/12/23 09/14/23 History Allergies Allergy/AdvReac Type Severity Reaction Status Date / Time lisinopril AdvReac Cough Verified 09/14/23 06:39 Surgical - Exam Vital Signs Temp Pulse Resp BP Pulse Ox 98.1 F 69 20 153/73 97 09/14/23 06:41 09/14/23 06:41 09/14/23 06:41 09/14/23 06:41 09/14/23 06:41 Results - Labs Abnormal Lab Results - Last 24 Hours (Table) 09/14/23 Range/Units 06:50 POC Glucose (mg/dL) 114 H (70-110) mg/dL
[2023-09-14 07:04] VITALS: TEMP 98.1
--- NOTE | 2023-09-14 07:14 | P.PCN ---
Date of Procedure: 09/14/23 Description of Procedure: PREOPERATIVE DIAGNOSIS: Gastroesophageal reflux disease. Morbid obesity. POSTOPERATIVE DIAGNOSIS: Gastroesophageal reflux disease. Morbid obesity. Gastritis. Diaphragmatic hiatal hernia Gastric polyp OPERATION: Esophagogastroduodenoscopy with biopsies along the esophagus, antrum and duodenum SURGEON: Veronica Ribeiro MD ANESTHESIA: MAC. INDICATIONS: The patient is a 73-year-old female who presents with reflux disease. Benefits and risks of the procedure were described. Informed consent was obtained. DESCRIPTION: The patient was brought into the endoscopy suite and laid in the left lateral decubitus position. An Olympus gastroscope was passed along the posterior luis antonio pharynx down to the distal esophagus where the squamocolumnar junction was encountered at 33 cm from the incisors. The stomach was entered and no bile reflux was found. Additional findings are listed below. Biopsies with cold forceps were obtained of the antrum. The first through third portion of the duodenum was examined. Retroflexion of the scope confirmed Hill grade 3 lower esophageal valve. The squamocolumnar junction demonstrated LA grade B erosive esophagitis. The stomach was desufflated. The patient tolerated the procedure well. FINDINGS: Squamocolumnar junction 33 cm from the incisors. Diaphragmatic hiatus at 35 cm. Hiatal hernia, 2 cm Hill grade 2 lower esophageal valve. LA grade B erosive esophagitis. Biopsies obtained Multiple hyperplastic gastric polyp Biopsies obtained of the duodenum. Chronic gastritis with biopsies obtained. RECOMMENDATIONS: Upper endoscopy as needed.
--- NOTE | 2023-09-14 07:31 | P.PCN ---
Date of Procedure: 09/14/23 Description of Procedure: PREOPERATIVE DIAGNOSIS: Family history malignant colon polyps Colonoscopy screening POSTOPERATIVE DIAGNOSIS: Tubular adenoma descending colon Sigmoid diverticulosis External/Internal hemorrhoids, grade 3 OPERATION: Colonoscopy to the ileocecal valve and appendiceal orifice, cecum Colonoscopy with hot snare polypectomy Colonoscopy with cold forceps biopsy SURGEON: Veronica Ribeiro MD. ANESTHESIA: MAC. INDICATIONS: The patient is an 73-year-old female who presents for colonoscopy screening. Last colonoscopy over 10 years ago. Benefits and risks were described and informed consent was obtained. DESCRIPTION OF PROCEDURE: The patient had undergone Suprep. The patient had been brought into the operating room and laid in the left lateral decubitus position. After adequate intravenous sedation, the rectum was examined with 2% lidocaine jelly. The prostate was unremarkable. External hemorrhoids were encountered. The rectal tone was within normal limits. No lesions were palpated in the rectal vault. An Olympus colonoscope was advanced until the cecum, ileocecal valve and appendiceal orifice were clearly viewed. The prep was good. Sigmoid diverticulosis was encountered. Colonic polyps were found and removed. No evidence of focal colitis was found. Retroflexion of the scope demonstrated grade 3 internal hemorrhoids without active bleeding or inflammation. The colon was desufflated. The patient had tolerated the procedure well. Withdrawal time was over 6 minutes. FINDINGS: Aronchick preparation quality scale 2 (1-5) Internal hemorrhoids, grade 4 with recent inflammation and bleeding External hemorrhoids, grade 4. No arteriovenous malformations. Sigmoid diverticulosis Removal of 1 polyps: - Cold forceps biopsy at descending colon, 3 mm polyp. No focal colitis. RECOMMENDATIONS: Repeat colonoscopy 5 years, 2027 Plan - Discharge Summary Discharge Rx Participant: No New Discharge Prescriptions: Continue Multivitamins, Thera [Multivitamin (formulary)] 1 tab PO DAILY Atorvastatin [Lipitor] 40 mg PO HS Vit C/E/Zn/Coppr/Lutein/Zeaxan [Preservision Areds 2 Softgel] 1 each PO BID Omeprazole [PriLOSEC] 40 mg PO DAILY Furosemide [Lasix] 40 mg PO DAILY #7 tablet Metoprolol Tartrate [Lopressor] 25 mg PO BID #60 tab Spironolactone 25 mg PO DAILY Cyanocobalamin (Vitamin B-12) [Vitamin B-12] 1,000 mcg PO DAILY Ascorbic Acid [Vitamin C] 500 mg PO DAILY amLODIPine [Norvasc] 5 mg PO HS Cholecalciferol [Vitamin D3 (25 Mcg = 1000 Iu)] 25 mcg PO DAILY Discharge Medication List Atorvastatin [Lipitor] 40 mg PO HS 10/15/19 [History] Multivitamins, Thera [Multivitamin (formulary)] 1 tab PO DAILY 10/15/19 [History] Omeprazole [PriLOSEC] 40 mg PO DAILY 10/15/19 [History] Vit C/E/Zn/Coppr/Lutein/Zeaxan [Preservision Areds 2 Softgel] 1 each PO BID 10/15/19 [History] Furosemide [Lasix] 40 mg PO DAILY #7 tablet 12/30/19 [Rx] Metoprolol Tartrate [Lopressor] 25 mg PO BID #60 tab 12/30/19 [Rx] Ascorbic Acid [Vitamin C] 500 mg PO DAILY 09/12/23 [History] Cholecalciferol [Vitamin D3 (25 Mcg = 1000 Iu)] 25 mcg PO DAILY 09/12/23 [History] Cyanocobalamin (Vitamin B-12) [Vitamin B-12] 1,000 mcg PO DAILY 09/12/23 [History] Spironolactone 25 mg PO DAILY 09/12/23 [History] amLODIPine [Norvasc] 5 mg PO HS 09/12/23 [History] Follow up Appointment(s)/Referral(s): Veronica Ribeiro MD [STAFF PHYSICIAN] - 10/17/23 9:00 am Patient Instructions/Handouts: Diverticulosis Diet (GEN), Diverticulosis (ED), Colorectal Polyps (GEN), Hiatal Hernia (DC), Hemorrhoids (DC) Activity/Diet/Wound Care/Special Instructions: Repeat colonoscopy 5 years, 2027 Discharge Disposition: HOME SELF-CARE
[2023-09-14 07:32] VITALS: RESP 16
[2023-09-14] MEDS ORDERED: ONDANSETRON 4 MG/2 ML VIAL ONE (07:33)
[2023-09-14 07:57] VITALS: BP 136/54; PULSE 67
== END 2023-09-14 08:14 | disposition home or self-care (01) ==
LOC: ORWHC2ENDO 06:05
PROVIDERS: ATTEND Surgery Plastic and Reconstructive Surgery
DX: Z12.11 Encounter for screening for malignant neoplasm of colon (principal); K29.50 Unspecified chronic gastritis without bleeding; K21.00 Gastro-esophageal reflux disease with esophagitis, without bleeding; K57.30 Diverticulosis of large intestine without perforation or abscess without bleeding; K64.3 Fourth degree hemorrhoids; I25.10 Atherosclerotic heart disease of native coronary artery without angina pectoris; K44.9 Diaphragmatic hernia without obstruction or gangrene; K31.7 Polyp of stomach and duodenum; E11.9 Type 2 diabetes mellitus without complications; E78.5 Hyperlipidemia, unspecified; I10 Essential (primary) hypertension; Z90.49 Acquired absence of other specified parts of digestive tract; Z98.890 Other specified postprocedural states; Z88.8 Allergy status to other drugs, medicaments and biological substances; Z83.711 Family history of hyperplastic colon polyps; Z79.899 Other long term (current) drug therapy
CPT/HCPCS: 88305; 45385; 43239; J2704; 45380

== ENCOUNTER → 2023-09-20 | Outpatient (CLI) | payer MEDICARE ==
--- NOTE | 2023-09-20 14:33 | P.PN ---
Subjective DATE: 09/20/2023 FOLLOW UP VISIT. Patient with obstructive sleep apnea hypopnea syndrome return to sleep center for follow-up visit. Information from previous visit have been reviewed. Patient is using PAP equipment every night for the whole night, getting PAP supplies in time. The patient does not have significant problems with the PAP unit and humidification. Patient has problems with the mask, when she returned during the sleep mask may be off.[place] sleepiness scale is 3. I checked information from PAP unit. PAP unit pressure 5-11, average 10.3 cm H2O. Usage is 100% and 90 % for more then 4 hours, average 5.25 hours per night. Leak is 21.2 l/m, which is in acceptable range. Apnea Hypopnea Index is 0.3, which is normal. MEDICATIONS:1. Omeprazole 40 mg once a day 2. Amlodipine 5 mg once a day 3. . Metoprolol 4. Furosemide 40 mg once a day 5. Atorvastatin 40 mg once a day 6. Vitamin B12 During physical exam: GENERAL: A pleasant patient without any distress. VITAL SIGNS: BP 156/73, HR 69, RR 18 , weight 192.4, temperature 97.4, oxygen saturation at room air 96 % . HEENT: PERRLA, EOMI.low position of soft palate, Mallapati 4 . NECK: Supple. No JVD. LUNGS: Clear to percussion and to auscultation. Good air exchange. No wheezing or rhonchi. HEART: S1, S2 regular. ABDOMEN: Soft and nontender. Slightly obese EXTREMITIES: No clubbing or cyanosis. INTRANET DEVELOPER: Awake, alert, and oriented x3. No focal deficit. Impressions: 1. Obstructive sleep apnea-hypopnea syndrome. Patient demonstrated great compliance with treatment, benefiting from treatment. 2. Obesity, patient lost 2 pounds comparing with previous visit. 3. Hypertension. 4. History of periodic limb movements, no complaints of the present time. 5. Status post aortic valve replacement. 6. Status post mastectomy. 7. Status post appendectomy. 8. Status post bilateral cataract surgery. Plan: 1. Continue using PAP equipment every night for the whole night. Patient will try to use different type of the nasal mask. 2. To change air filter at least 1-2 times per month. 3. PAP unit should stay lower then position of the head. 4. Advised patient to remove all remaining water from humidifier canister daily and make it dry after each usage. Refill canister with fresh distilled water before each usage. 5. Sleep hygiene with regular time in bed for at least 8 hours. 6. Precautions related to driving. No driving if feel any sleepiness. 7. I will maintain prescription for PAP supplies including mask, tube, filters. 8. Watching and losing weight. 9. Follow up visit in 6 months or earlier if patient has any problems. Thank you very much for allowing me to participate in the management of your patient. Lui Robins MD, PhD, FAASM. Diplomat of [place] [employer], Sleep Medicine Board by [place] [employer] Clinical Psychology Teacher of [facility] [place]
== END ==
LOC: SLEEP 13:59
PROVIDERS: ATTEND Internal Medicine
DX: G47.33 Obstructive sleep apnea (adult) (pediatric) (principal); E66.9 Obesity, unspecified; I10 Essential (primary) hypertension; Z95.2 Presence of prosthetic heart valve; Z90.10 Acquired absence of unspecified breast and nipple; Z98.890 Other specified postprocedural states; Z98.41 Cataract extraction status, right eye; Z98.42 Cataract extraction status, left eye; Z99.89 Dependence on other enabling machines and devices; Z79.899 Other long term (current) drug therapy; Z90.49 Acquired absence of other specified parts of digestive tract; Z88.8 Allergy status to other drugs, medicaments and biological substances
CPT/HCPCS: 99212

== ENCOUNTER → 2024-02-23 | Outpatient (CLI) | payer MEDICARE ==
--- NOTE | 2024-02-23 16:21 | BD ---
EXAMINATION TYPE: Axial Bone Density DATE OF EXAM: 02/23/2024 CLINICAL HISTORY: 73 years old Female. ICD-10 CODE: N95.1 MENOPAUSAL STATE Height: 59.5 in Weight: 183 lbs EXAM MEASUREMENTS: Bone mineral densitometry was performed using the [employer] System. Bone mineral density as measured about the Lumbar spine is: ----- L1-L4(G/cm2): 1.434 T Score Values are as follows: ----- L1: 1.3 ----- L2: 2.5 ----- L3: 2.8 ----- L4: 1.7 ----- L1-L4: 2.1 Z Score Values are as follows: ----- L1: 2.4 ----- L2: 3.6 ----- L3: 3.9 ----- L4: 2.8 ----- L1-L4: 3.2 Bone mineral density has: Decreased -1.2% since study of: 11/27/2012 Bone mineral density about the R hip (g/cm2): 0.898 Bone mineral density about the L hip (g/cm2): 0.907 T Score values are as follows: -----R Neck: -1.2 -----L Neck: -1.9 -----R Total: -0.9 -----L Total: -0.8 Z Score values are as follows: -----R Neck: 0.2 -----L Neck: -0.5 -----R Total: 0.3 -----L Total: 0.4 Bone mineral density has: Decreased -6.6% since study of: 11/27/2012 FRAX%s: The graph provided illustrates a 11.2% chance for a major osteoporotic fx and a 2.3% chance f or the hips probability for fx in 10 years time. IMPRESSION: Normal (Values between +1 and -1 indicate normal bone mass). Consider repeating this study in 5 year s or sooner if there is some new clinical indication. NOTE: T-SCORE=SD OF THE YOUNG ADULT MEAN.
--- NOTE | 2024-02-26 19:34 | MM ---
Reason for Exam: Screening (asymptomatic). Last mammogram was performed 1 year(s) and 1 month(s) ago. Patient History: Menarche at age 14. First Full-Term at age 22. Postmenopausal. Patient has history of breast feeding. Patient used Hormonal Contraceptives for 3 years. 05/2017, Excisional Biopsy on the Right side. 04/04/2017, High risk Core Biopsy on the right side. Sister had breast cancer, age 48. Risk Values: Nickie 5 year model risk: 5.0%. NCI Lifetime model risk: 12.6%. Prior Study Comparison: 07/09/2021 Right Diagnostic Mammogram, [facility]. 01/11/2022 Bilateral Screening Mammogram, [facility]. 01/12/2023 Bilateral MG 3D screening mammo w/cad, [facility]. Tissue Density: There are scattered areas of fibroglandular density. Findings: Analyzed By CAD. Chronic bilateral nodularity. There is no suspicious group of microcalcifications or new suspicious mass in either breast. Overall Assessment: Benign, BI-RAD 2 Management: Screening Mammogram of both breasts in 1 year. See note below in regards to the patient's increased 5 year Nickie score. Patient should continue monthly self-breast exams. A clinical breast exam by your physician is recommended on an annual basis. This exam should not preclude additional follow-up of suspicious palpable abnormalities. Note on Nickie scores and lifetime risk: 1. A Nickie score greater than 3% is considered moderate risk. If this is the case, consider specialist referral to assess eligibility for a risk reducing agent. 2. If overall lifetime risk for the development of breast cancer is 20% or higher, the patient may qualify for future screening with alternating mammogram and breast MRI. Electronically signed and approved by: Marcio Sharp M.D. Radiologist
== END | disposition home or self-care (01) ==
LOC: RADMAMWWP 13:50
PROVIDERS: ATTEND Internal Medicine
DX: Z12.31 Encounter for screening mammogram for malignant neoplasm of breast (principal); M85.89 Other specified disorders of bone density and structure, multiple sites; Z78.0 Asymptomatic menopausal state; Z80.3 Family history of malignant neoplasm of breast
CPT/HCPCS: 77063; 77067; 77080

== ENCOUNTER → 2024-02-26 | Outpatient (CLI) | payer MEDICARE ==
[2024-02-26 11:26] LABS: ALT 26 U/L (8-44); AST 19 U/L (13-35); BUN/Creat Ratio 27.14 Ratio (12.00-20.00); Calcium 9.5 mg/dL (8.7-10.3); Carbon Dioxide 28.6 mmol/L (21.6-31.8); Chloride 105 mmol/L (96-109); Glucose 117 mg/dL (70-110); Potassium 3.8 mmol/L (3.5-5.5); Sodium 144 mmol/L (135-145)
== END | disposition home or self-care (01) ==
LOC: LABWHC1 07:04
PROVIDERS: ATTEND Internal Medicine
DX: I10 Essential (primary) hypertension (principal); E87.8 Other disorders of electrolyte and fluid balance, not elsewhere classified; E11.9 Type 2 diabetes mellitus without complications
CPT/HCPCS: 36415; 80048; 83036; 84450; 84460

== ENCOUNTER → 2024-04-24 | Outpatient (CLI) | payer MEDICARE ==
[2024-04-24 14:26] VITALS: BP 153/72; PULSE 66; RESP 18; TEMP 98.1
--- NOTE | 2024-04-24 14:50 | P.PROGSL ---
Subjective DATE: 04/24/2024 FOLLOW UP VISIT. Patient with obstructive sleep apnea hypopnea syndrome return to sleep center for follow-up visit. Information from previous visit have been reviewed. Patient is using PAP equipment every night for the whole night, getting PAP supplies in time. The patient does not have significant problems with the mask, PAP unit and humidification. [place] sleepiness scale is 4, which is normal. I checked information from PAP unit. PAP unit pressure 5-11, average 10.2 cm H2O. Usage is 100% and 83% for more then 4 hours, average 5 hours per night. Leak is 21.7 l/m, which is in acceptable range. Apnea Hypopnea Index is 0.3, which is normal. MEDICATIONS: Please see below During physical exam: GENERAL: A pleasant patient without any distress. VITAL SIGNS: Please see below, weight 184.4 pounds, patient lost 8 pounds comparing with the previous visit. HEENT: PERRLA, EOMI.low position of soft palate, Mallapati 4. NECK: Supple. No JVD. LUNGS: Clear to percussion and to auscultation. Good air exchange. No wheezing or rhonchi. HEART: S1, S2 regular. ABDOMEN: Soft and nontender. Slightly obese EXTREMITIES: No clubbing or cyanosis. COMPLIANCE MGR: Awake, alert, and oriented x3. No focal deficit. Impressions: 1. Obstructive sleep apnea-hypopnea syndrome. Patient demonstrated great compliance with treatment, benefiting from treatment. 2. Obesity BMI 35.9, patient lost 8 pounds comparing to previous visit. 3. Hypertension. 4. History of periodic limb movements, no complaints at the present time. 5. Status postmastectomy. 6. Status post aortic valve replacement. 7. Status post bilateral cataract surgery. 8. Status post appendectomy. Plan: 1. Continue using PAP equipment every night for the whole night. 2. To change air filter at least 1-2 times per month. 3. PAP unit should stay lower then position of the head. 4. Advised patient to remove all remaining water from humidifier canister daily and make it dry after each usage. Refill canister with fresh distilled water before each usage. 5. Sleep hygiene with regular time in bed for at least 8 hours. 6. Precautions related to driving. No driving if feel any sleepiness. 7. I will maintain prescription for PAP supplies including mask, tube, filters. 8. Follow up visit in 6 months or earlier if patient has any problems. 9. Watching and continue losing weight. Thank you very much for allowing me to participate in the management of your patient. Lui Robins MD, PhD, FAASM. Diplomat of [place] [employer], Sleep Medicine Board by [place] [employer] Dental Intern of [facility] [place] Objective - Vital Signs Vital Signs: Vital Signs Temp 98.1 F 04/24/24 14:25 Pulse 66 04/24/24 14:25 Resp 18 04/24/24 14:25 BP 153/72 04/24/24 14:25 Pulse Ox 95 04/24/24 14:25 FiO2 Intake & Output 04/23/24 04/24/24 04/24/24 18:59 06:59 18:59 Weight 83.574 kg Home Medications: Home Medications Medication Instructions Recorded Confirmed Type Atorvastatin [Lipitor] 40 mg PO HS 10/15/19 04/24/24 History Multivitamins, Thera [Multivitamin 1 tab PO DAILY 10/15/19 09/14/23 History (formulary)] Omeprazole [PriLOSEC] 40 mg PO DAILY 10/15/19 04/24/24 History Vit C/E/Zn/Coppr/Lutein/Zeaxan 1 each PO BID 10/15/19 09/14/23 History [Preservision Areds 2 Softgel] Metoprolol Tartrate [Lopressor] 25 mg PO BID #60 tab 12/30/19 04/24/24 Rx Ascorbic Acid [Vitamin C] 500 mg PO DAILY 09/12/23 09/14/23 History Cholecalciferol [Vitamin D3 (25 25 mcg PO DAILY 09/12/23 09/14/23 History Mcg = 1000 Iu)] Cyanocobalamin (Vitamin B-12) 1,000 mcg PO DAILY 09/12/23 09/14/23 History [Vitamin B-12] Spironolactone 25 mg PO DAILY 09/12/23 04/24/24 History amLODIPine [Norvasc] 5 mg PO HS 09/12/23 04/24/24 History Empagliflozin [Jardiance] 10 mg PO DAILY 04/24/24 04/24/24 History Furosemide [Lasix] 40 mg PO BID 04/24/24 04/24/24 History
== END ==
LOC: 3 N SLEEP 13:55
PROVIDERS: ATTEND Internal Medicine
DX: G47.33 Obstructive sleep apnea (adult) (pediatric) (principal); E66.9 Obesity, unspecified; I10 Essential (primary) hypertension; Z99.89 Dependence on other enabling machines and devices; Z90.49 Acquired absence of other specified parts of digestive tract; Z98.41 Cataract extraction status, right eye; Z98.42 Cataract extraction status, left eye; Z95.4 Presence of other heart-valve replacement; Z90.11 Acquired absence of right breast and nipple; Z87.39 Personal history of other diseases of the musculoskeletal system and connective tissue; Z79.899 Other long term (current) drug therapy; Z68.35 Body mass index [BMI] 35.0-35.9, adult; Z88.8 Allergy status to other drugs, medicaments and biological substances
CPT/HCPCS: 99212

== ENCOUNTER → 2024-09-03 | Outpatient (CLI) | payer MEDICARE ==
[2024-09-03 10:24] LABS: Basophils # (A) 0.02 X 10*3/uL (0.00-0.10); Basophils % (A) 0.4 %; HCT 41.1 % (37.2-46.3); HGB 13.4 g/dL (12.0-15.0); Lymphocytes # (A) 1.41 X 10*3/uL (0.90-5.00); Lymphocytes % (A) 27.9 %; MCH 29.5 pg (27.0-32.0); MCHC 32.6 g/dL (32.0-37.0); MCV 90.3 FL (80.0-97.0); Mean Platelet Volume 8.9 FL (9.5-12.2); Monocytes % (A) 5.9 %; NRBC Per 100 WBC 0 X 10*3/uL (0.00-0.01); Neutrophils % (A) 63.4 %; Platelet Count 267 X 10*3/uL (140-440); RBC 4.55 X 10*6/uL (4.10-5.20); RDW 13.7 % (11.5-14.5); WBC 5.05 X 10*3/uL (4.50-10.00)
[2024-09-03 10:57] LABS: Chol/HDL Ratio 2.87 Ratio; Creatine Kinase 93 U/L (26-186); LDL Cholesterol,Calculated 86.4 mg/dL (0.0-131.0); Magnesium 2.1 mg/dL (1.5-2.4)
[2024-09-03 10:58] LABS: % Iron Saturation 25.65 (12.00-45.00); ALT 23 U/L (8-44); AST 21 U/L (13-35); Albumin 4.2 g/dL (3.8-4.9); Albumin/Globulin Ratio 2.21 Ratio (1.60-3.17); Alkaline Phosphatase 77 U/L (41-126); BUN/Creat Ratio 24.71 Ratio (12.00-20.00); Blood Urea Nitrogen 17.3 mg/dL (9.0-27.0); Calcium 9.1 mg/dL (8.7-10.3); Carbon Dioxide 28.3 mmol/L (21.6-31.8); Chloride 104 mmol/L (96-109); Globulin 1.9 g/dL (1.6-3.3); Glucose 116 mg/dL (70-110); Iron 89 UG/DL (50-170); Phosphorus 3.2 mg/dL (2.4-5.1); Potassium 3.9 mmol/L (3.5-5.5); Sodium 143 mmol/L (135-145); Total Bilirubin 0.4 mg/dL (0.3-1.2); Total Iron Binding Capacity 347 UG/DL (228-460); Total Protein 6.1 g/dL (6.2-8.2); Uric Acid 4.1 mg/dL (2.9-7.7)
[2024-09-03 11:08] LABS: Erythrocyte Sedimentation Rate 9 mm/Hr (0-30)
== END | disposition home or self-care (01) ==
LOC: LABWHC1 07:34
PROVIDERS: ATTEND Internal Medicine
CPT/HCPCS: 36415; 80053; 80061; 82043; 82306; 82550; 82570; 82728; 83036; 83540; 83550; 83735; 84100; 84443; 84550; 85025; 85652; 86140

== ENCOUNTER → 2025-02-26 | Outpatient (CLI) | payer MEDICARE ==
--- NOTE | 2025-02-26 10:49 | MM ---
Reason for Exam: Screening (asymptomatic). Last screening mammogram was performed 12 month(s) ago. Patient History: Menarche at age 14. First Full-Term at age 22. Postmenopausal. Patient has history of breast feeding. Patient used Hormonal Contraceptives for 3 years. 05/2017, Excisional Biopsy on the Right side. 04/04/2017, High risk Core Biopsy on the right side. Sister had breast cancer, age 48. Risk Values: Nickie 5 year model risk: 5.0%. NCI Lifetime model risk: 12.0%. Prior Study Comparison: 01/11/2022 Bilateral Screening Mammogram, [facility]. 01/12/2023 Bilateral MG 3D screening mammo w/cad, [facility]. 02/23/2024 Bilateral MG 3D screening mammo w/cad, [facility]. Tissue Density: The breasts are heterogeneously dense, which may obscure small masses. Findings: Analyzed By CAD. There is no suspicious group of microcalcifications or new suspicious mass in either breast. Overall Assessment: Benign, BI-RAD 2 Management: Screening Mammogram of both breasts in 1 year. . Patient should continue monthly self-breast exams. A clinical breast exam by your physician is recommended on an annual basis. This exam should not preclude additional follow-up of suspicious palpable abnormalities. Note on Nickie scores and lifetime risk: 1. A Nickie score greater than 3% is considered moderate risk. If this is the case, consider specialist referral to assess eligibility for a risk reducing agent. 2. If overall lifetime risk for the development of breast cancer is 20% or higher, the patient may qualify for future screening with alternating mammogram and breast MRI. [facility], , 02/26/2025 10:46 AM. Electronically signed and approved by: Mikel Correa M.D. Radiologis
== END | disposition home or self-care (01) ==
LOC: RADMAMWWP 10:36
PROVIDERS: ATTEND Internal Medicine
DX: Z12.31 Encounter for screening mammogram for malignant neoplasm of breast (principal); R92.333 Mammographic heterogeneous density, bilateral breasts; Z78.0 Asymptomatic menopausal state; Z80.3 Family history of malignant neoplasm of breast; Z92.0 Personal history of contraception
CPT/HCPCS: 77063; 77067

== ENCOUNTER → 2025-05-23 | Outpatient (CLI) | payer MEDICARE ==
[2025-05-23 10:31] LABS: Anion Gap 12.80 mmol/L (4.00-12.00); BUN/Creat Ratio 23.43 Ratio (12.00-20.00); Blood Urea Nitrogen 16.4 mg/dL (9.0-27.0); Calcium 9.0 mg/dL (8.7-10.3); Carbon Dioxide 28.2 mmol/L (21.6-31.8); Chloride 103 mmol/L (96-109); Glucose 125 mg/dL (70-110); Potassium 3.7 mmol/L (3.5-5.5); Sodium 144 mmol/L (135-145)
== END | disposition home or self-care (01) ==
LOC: LABWHC1 07:07
PROVIDERS: ATTEND Internal Medicine
DX: I10 Essential (primary) hypertension (principal); E11.65 Type 2 diabetes mellitus with hyperglycemia; R80.9 Proteinuria, unspecified
CPT/HCPCS: 36415; 80048; 82043; 82570; 83036; 87086